=== PATIENT | male | born 1960 | race Caucasian/White ===

== ENCOUNTER 2023-03-13 14:43 | Inpatient (IN) | payer BC, MEDICARE, SELFPAY ==
[2023-03-13] VITALS (61 sets, daily range): BP systolic 123–149; BP diastolic 76–92; PULSE 81–108; RESP 3–32; TEMP 36.7–36.8; O2SAT 87–100
--- NOTE | 2023-03-13 14:45 | RT.EKG_ITS ---
APPROVED REPORT Exam: Resting ECG Reason for Exam: CP Patient Location: E HR:92 bpm ECG Measurements Heart Rate 92 AXIS [place] 150 P 76 QRSd 97 QRS -46 QT 367 T 52 QTc 455 Conclusion Sinus rhythm...normal P axis, V-rate 60- 99 LAD, consider left anterior fascicular block...axis(240,-40), S>R II III aVF sinus rhythm, left axis, normal intervals non ischemic
--- NOTE | 2023-03-13 15:00 | DI.CT_ITS ---
Exam(s) CT CHEST PE CTA EXAM: CT CHEST PE CTA CLINICAL HISTORY: lung CA, chest pain, sob, hypoxia. TECHNIQUE: Imaging Protocol: CT angiography of the chest was performed using pulmonary embolus madelyn col. Multi planar reconstructions were performed. CONTRAST MATERIAL: Intravenous: Omnipaque 350 Contrast volume: 100 cc COMPARISON: No exams were available for comparison FINDINGS: CHEST: PULMONARY ARTERIES: There are no intraluminal filling defects to suggest acute pulmonary emboli. LUNGS: There bilateral COPD/emphysematous findings throughout both lung argueta. In the right upper lobe there is an ominous appearing lobulated lung nodule measuring 3.5 x 2.2 cm wh ich is suspicious for malignancy. No other focal right lung findings and no pleural effusion.. In the opposite-left lung there is confluent posteriorly located infiltrate in the left lower lobe ex tending from the infrahilar region down to the posterior basal segment. There are multiple patent no nthrombosed pulmonary arteries within this collapsed lung. Bronchus to this level is occluded. MEDIASTINUM: There is no hilar nor mediastinal adenopathy. CARDIAC: Heart size is upper normal. There is no pericardial effusion.Caliber of the thoracic aorta is within normal limits. No dissection. There is no significant shift of the interventricular septum . PARTIALLY VISUALIZED UPPERMOST ABDOMEN: No obvious adrenal masses. Exophytic benign cyst off the lat eral cortex of the left kidney noted which measures 1.2 x 1.2 cm. This does not require further work up. OSSEOUS: No significant osseous lesions.No fractures evident.. IMPRESSION: 1. No evidence of acute pulmonary emboli. 2. 3.5 x 2.2 cm right upper lobe mass suspicious for malignancy. 3. Prominent area of left lower lobe volume loss. Also suspicious for neoplasm with nonvisualized br onchus. Comparison to prior outside studies would be helpful Discussed with ER provider. RADIATION DOSE DELIVERED: 248.5mGy.cm Total DLP DATA REPOSITORY: All CT scans at this facility are submitted to the National Radiology Data Registry (NRDR) Dose Index Registry (DIR) with the [employer] (ACR). RADIATION OPTIMIZATION: All CT scans at this facility use at least one of these dose optimization te chniques: automated exposure control; mA and/or kV adjustment per patient size (includes targeted exa ms where dose is matched to clinical indication); or iterative reconstruction.
[2023-03-13] MEDS: Normal Saline 500 ML 1000 ML IV (15:11)
--- NOTE | 2023-03-13 15:20 | ED.GENADUL_ITS ---
Discharge Plan Discharge Details Chief Complaint: RespSymp Primary Care Provider: [facility],Local ED Provider: Keanu Manzano Medical Decision Making 62-year-old male history of lung cancer currently undergoing radiation therapy, scheduled to begin chemotherapy today however patient was endorsing worsening ch est pain and shortness of breath so therapy was canceled. Noted to be hypoxic in the 60s and 70s on room air, improvement with nasal cannula and then nonrebreather. Has been having episodes of hemoptysis. Was also diagnosed with a nasal tumor. Patient noted to be tachycardic and hypoxic on arrival speaking in short sentences, tachypneic. Saturating 89 to 95% on nonrebreather feeling more comfortable with nonrebreather. Must consider PE versus pulmonary hemorrhage versus worsening tumor burden versus pleural effusion versus pneumonia low suspicion for ACS or PE. Will obtain screening labs imaging close reassessment of symptoms 16: 13 transitioned off of nonrebreather to nasal cannula now 3 L nasal cannula saturating high 90s to 100%. Leukocytosis consider reactive to cancer versus active infection. Disposition pending results of CT chest HPI General Date/Time Provider Initiated Documentation: 03/13/23 14:46 . HPI Narrative: 62-year-old male currently undergoing radiation therapy for lung cancer presents with shortness of breath chest pain and hemoptysis over the last day. Noted to be hypoxic in the field to 60 to 70% on room air with improvement after being placed on nasal cannula and nonrebreather. General Stated Complaint: RespSymp LYUBOV: 2 Review of Systems Narrative: Review of Systems Constitutional: negative Eyes: negative ENT: negative Cardiovascular: negative Respiratory: Shortness of breath Gastrointestinal: negative : negative Musculoskeletal: negative Skin: negative Neurologic: negative Psych: negative [facility] Social History Smoking risk assessment performed?: No Exam Narrative Exam Narrative: Physical Examination General: alert, awake, cooperative, moderately uncomfortable HEENT: normocephalic, atraumatic; PERRL, EOM intact, conjunctiva normal; no nasal discharge; moist mucous membranes, oral and pharyngeal mucosa normal, tolerating secretions Neck: supple, trachea midline; full ROM Chest: normal to inspection Respiratory: Tachypneic speaking in short sentences Cardiac: Tachycardia, regular rhythm, S1S2 intact, no murmurs rubs or gallops GI: abdomen soft, non-tender, non-distended; no palpable mass or hepatosplenomegaly Skin: no lesions, rashes or trauma appreciated; dry Neuro: AAOx3, normal speech, moving all extremities Psych: Appropriate mood and affect Course Vital Signs Vital signs: Vital Signs Temperature 36.8 C 03/13/23 14:48 Pulse 108 H 03/13/23 14:48 Blood Pressure 127/91 H 03/13/23 14:48 Pulse Oximetry 90 L 03/13/23 14:48 Temperature 36.8 C 03/13/23 14:48 Temperature Source Temporal Artery Scan 03/13/23 14:48 Pulse 108 H 03/13/23 14:48 Respiratory Effort Short of Breath, Labored 03/13/23 15:09 Respiratory Depth Normal 03/13/23 15:04 Blood Pressure 127/91 H 03/13/23 14:48 Blood Pressure Position Sitting 03/13/23 14:48 Pulse Oximetry 90 L 03/13/23 14:48 Oxygen Delivery Method Nasal Cannula 03/13/23 14:48 Oxygen Flow Rate 2 03/13/23 14:48
[2023-03-13 15:24] LABS: HCT 28.5 % (40.0-50.0); HGB 9.9 g/dL (13.5-17.5); MCH 30.9 pg (27.0-33.0); MCHC 34.7 % (32.0-36.0); MCV 89 fL (80-95); MPV 8.5 fL (8.0-11.0); RDW 15.4 % (11.8-14.1); RDW-SD 49.3 fL
[2023-03-13 15:27] LABS: WBC 26.49 10^3/uL (4.4-10.8)
[2023-03-13] MEDS: ACETAMINOPHEN 1,000 MG/100 ML BTL 400 MG IVPB (15:32)
[2023-03-13 15:38] LABS: PTT Activated 30.2 sec (21.5-31.9); Prothrombin Time 10.1 sec (9.3-11.0)
[2023-03-13 15:51] LABS: ALT 18 U/L (16-63); AST 19 U/L (15-37); Absolute Lymphocyte Count 0.79 10^3/uL (1.2-3.4); Absolute Neutrophil Count 24.37 10^3/uL (1.2-6.7); Albumin 2.9 g/dL (3.4-5.0); Alkaline Phosphatase 113 U/L (46-116); Anion Gap 7.3 mmol/L (3-11); BUN 7 mg/dL (7-18); Bands % 8; Bilirubin, Total 0.5 mg/dL (0.2-1.0); CO2 31.7 mmol/L (21.0-32.0); CREATININE 0.7 mg/dL (0.70-1.30); Calcium 9.7 mg/dL (8.5-10.1); Chloride 87 mmol/L (98-107); Estimated GFR 105.49 (mL/min/1.73m2); Glucose 97 mg/dL (74-106); NT-proBNP 1098 pg/mL (<300); Platelet Count 519 10^3/uL (130-400); Potassium 3.4 mmol/L (3.5-5.1); Sodium 126 mmol/L (136-145); Total Protein 7.5 g/dL (6.4-8.2); Troponin I < 50 ng/L (<or=60)
[2023-03-13 15:52] LABS: Absolute Monocyte Count 1.32 10^3/uL (0.1-0.8); Diff Comment Manual Differential; RBC Morphology Normal
[2023-03-13] MEDS: cefTRIAXone 1 GM/50 ML BAG IV (16:14)
[2023-03-13] MEDS: Normal Saline Flush 10 ML SYR IVP (16:19)
[2023-03-13] MEDS: Normal Saline - Diluent 50 ML VIAL IJ ×3 (16:34→18:16)
[2023-03-13] MEDS: Omnipaque 350 MG/ML 100 ML BTL IJ ×2 (16:34→18:12)
[2023-03-13] MEDS: AZITHROMYCIN 500 MG in Normal Saline 250 ML 250 MG IVPB (16:50)
--- NOTE | 2023-03-13 17:45 | DI.CT_ITS ---
Exam(s) CT ABDOMEN PELVIS W EXAM: CT ABDOMEN PELVIS W CLINICAL HISTORY: abdominal pain, elevated wbc. TECHNIQUE: Imaging Protocol: Axial computed tomography images with coronal and sagittal reformatted images were created and reviewed CONTRAST MATERIAL: Intravenous: Omnipaque 350 Contrast volume:69 ml Oral: no COMPARISON: CT CT CHEST PE CTA from 03/13/2023 FINDINGS: ABDOMEN: Lung Bases: Heart is enlarged. Area of consolidation at the left lung base. There are emphysematous changes. Liver: Normal density. No measurable mass. Gallbladder and biliary tract: Gallbladder not visualized. No biliary dilatation. Pancreas: Normal density, no abnormal calcifications or inflammatory process. Spleen: Normal. Kidneys: Normal size, contour and axis. No radiodense stones or obstructive uropathy. No suspicious m asses seen. Small bilateral renal cysts. Adrenal glands: No masses seen. Abdominal Aorta: Abdominal portion non-dilated. Mild atherosclerotic changes. Soft tissues: Unremarkable. PELVIS: Bladder: No gross wall thickening. No calculi.No focal mass. Bowel: Gaseous distention of both small and large large bowel. No obstruction. No bowel wall thick ening. Appendix normal. Peritoneal cavity: No ascites, collection or mesenteric inflammatory response. Bones: degenerative changes. Minimal scoliosis Reproductive organs: Prostate mildly enlarged. Lymph nodes: Unremarkable. Impression: Nonspecific gaseous distension of small and large bowel. No findings to suggest obstruction. No bow el wall thickening. RADIATION DOSE DELIVERED: 661.67mGy.cm Total DLP DATA REPOSITORY: All CT scans at this facility are submitted to the National Radiology Data Registry (NRDR) Dose Index Registry (DIR) with the [employer] (ACR). RADIATION OPTIMIZATION: All CT scans at this facility use at least one of these dose optimization te chniques: automated exposure control; mA and/or kV adjustment per patient size (includes targeted exa ms where dose is matched to clinical indication); or iterative reconstruction.
[2023-03-13 17:51] LABS: BE (Venous) 6 mmol/L (-2-3); HCO3 (Venous) 32 mmol/L (23-28); Lactate 1.3 mmol/L (0.6-1.4); O2 Sat (Venous) 56 %; TCO2 (Venous) 31 mmol/L (24-29); pCO2 (Venous) 60 mmHg (41-51); pH (Venous) 7.33 (7.31-7.41); pO2 (Venous) 35 mmHg
--- NOTE | 2023-03-13 18:39 | DI.VRAD_ITS ---
PROCEDURE INFORMATION: Exam: CT Abdomen And Pelvis With Contrast Exam date and time: 03/13/2023 6:11 PM Age: 62 years old Clinical indication: Other: Abdominal pain, elevated wbc TECHNIQUE: Imaging protocol: Computed tomography of the abdomen and pelvis with contrast. Contrast material: OMNIPAQUE 350; Contrast volume: 60 ml; Contrast route: INTRAVENOUS (IV); COMPARISON: CT CHEST PE CTA 03/13/2023 4:29 PM FINDINGS: Lungs: Stable area of dependent atelectasis and endobronchial mucous plugging noted in the left lower lobe. Liver: Normal. No mass. Gallbladder and bile ducts: Gallbladder is not visualized, presumably surgically absent. Pancreas: Normal. No ductal dilation. Spleen: Normal. No splenomegaly. Adrenal glands: Normal. No mass. Kidneys and ureters: Normal. No hydronephrosis. Stomach and bowel: Multiple small bowel loops throughout the abdomen exhibit significant gaseous retention and are top-normal in caliber. Moderate amount of gas and stool noted throughout the colon, which appears normal to small in caliber. Appendix: The appendix is visualized and appears normal. Intraperitoneal space: Unremarkable. No free air. No significant fluid collection. Vasculature: Abdominal aorta is tortuous and normal in caliber with no evidence of dissection. Mild scattered atherosclerotic calcification is noted. Lymph nodes: Unremarkable. No enlarged lymph nodes. Urinary bladder: Unremarkable as visualized. Reproductive: Unremarkable as visualized. Bones/joints: Moderate degenerative disc changes noted L4-L5 and L5-S1. There is minimal lumbar scoliosis. No vertebral body compression acute fracture. Soft tissues: Unremarkable. IMPRESSION: No acute abnormality evident in the abdomen pelvis. No abnormal mass lesion or other findings concerning malignancy. Incidental findings as noted. Dictated and Authenticated by: Jovanny Stover MD. Ordering:SALVADOR Sorto MD
[2023-03-13 18:59] LABS: Troponin I < 50 ng/L (<or=60)
--- NOTE | 2023-03-13 19:28 | HPE_ITS ---
Date of service: 03/13/23 Time of Service: 19:28 Assessment and Plan Assessment and plan (1) Acute respiratory failure with hypoxia and hypercarbia: Start date: 03/13/23 Status: Acute Assessment and plan: This is a 62-year-old gentleman who was sent over from the cancer center with hypoxemia. He does have a chronically collapsed left lung but there may be persistent infiltrate and there is some concern with his chronic leukocytosis and worsening hypoxemia that he may have worsening pneumonia and this will be hospital-acquired. He will be replaced on vancomycin, cefepime and azithromycin IV with respiratory care. Oxygen supplement as needed. Recheck VBG if patient appears to worsen. Patient is a full code at this time. (2) HCAP (healthcare-associated pneumonia): Start date: 03/13/23 Status: Acute Assessment and plan: As above, O2 supplementation and IV antibiotic initiation with follow-up imaging as indicated. Pulmonology consultation if available. 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 This needs to be reviewed with oncology and once patient is stabilized he will resume evaluation and treatment of this new problem. His previous history of throat cancer which I think is not actively being treated. Patient will have swallow evaluation with difficulty swallowing. (4) Hyponatremia: Status: Chronic Assessment and plan: This is a chronic by history and probably associated with daily alcohol use. IV normal saline. (5) Hypokalemia: Start date: 03/13/23 Status: Acute Assessment and plan: IV repletion with IV normal saline and follow-up lab in the morning. Oral supplement if needed. Check magnesium and replete if needed along with phosphorus level with patient's daily alcohol use. (6) Alcohol abuse, daily use: Status: Chronic Assessment and plan: Patient will be placed on CIWA protocol with oral or sublingual Ativan as needed. Continue electrolyte monitoring and repletion. Patient's vitamins will be continued with a history of Warnicke's encephalopathy. (7) Leukocytosis (leucocytosis): Status: Chronic Assessment and plan: Assumed to be manifestation of his pneumonia upon evaluation in the ED but this may be a chronic problem and we need comparisons to see if this is actually worse or only reactive the patient also having an elevated platelet count. (8) Wernicke encephalopathy syndrome: Status: Chronic Assessment and plan: Continue thiamine daily and encourage alcohol cessation. 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 He does have some problems swallowing after this. He recently was diagnosed with a neuroendocrine tumor of the right lung with collapsed left lung and treated for pneumonia at [facility] discharge on linezolid but upon reporting to [facility] to discuss initiation of radiation therapy of his right lung tumor he was found to be hypoxic with dyspnea and sent to the ED for evaluation. In the ED he remained hypoxic but there is mention of him having oxygen dependency when admitted to [facility]. VBG revealed hypercarbia as well. He had leukocytosis which also appears to be chronic and question of persistent pneumonia or worsening therefore was admitted for aggressive treatment of hospital-acquired pneumonia while addressing his acute respiratory failure. The patient is a very vague historian. He has lost much weight since his throat cancer and appears to be somewhat noncompliant with follow-up. In the ED he was having a course cough with some production of sputum but no fever or chills and slightly dyspneic which appears to be worsened from baseline. He was admitted for IV antibiotic therapy for his hospital- acquired pneumonia, respiratory failure and to obtain an echocardiogram with his BNP elevated on lab evaluation. He has minimal labs for comparison at this hospital. He was a DNR in the past but revoked that status and is a full code at this time. He has poor insight. Review of Systems Narrative: 13 point review of systems positive for weight loss with the patient being very thin almost cachectic which has been a problem since disorder cancer and now worsened with his recent neuroendocrine tumor diagnosis, chronic cough with mention that patient may be on oxygen chronically with his last hospitalizations history and physical though this was thought to be new onset at the cancer center. He does have chronic constipation with bloating which comes and goes and stated that he has a hole in his intestine from recent testing though this is a vague history. CT in the ED did show multiple small bowel loops having significant gaseous retention with top normal caliber with the colon being normal caliber. Otherwise review of systems unrevealing or stable. 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 (Chronic) Acute hypoxemic respiratory failure (Acute) Medical History Aspiration pneumonia Social History Smoking/Tobacco Use Status: Former Tobacco Use Smoking risk assessment performed?: Yes Meds Allergies and Home Medications Allergies Allergy/AdvReac Type Severity Reaction Status Date / Time codeine Allergy Unverified 03/13/23 21:20 varenicline [From Chantix] Allergy Unverified 03/13/23 21:19 Home Medications Medication Instructions Recorded Confirmed Type albuterol sulfate 90 mcg/actuation 90 mcg inhalation Q4H 03/13/23 03/13/23 History aerosol inhaler (Ventolin HFA) ascorbic acid (vitamin C) 500 mg 500 mg PO 1XD 03/13/23 03/13/23 History tablet aspirin 81 mg tablet,delayed 81 mg PO 1XD 03/13/23 03/13/23 History release azelastine 137 mcg (0.1 %) nasal 137 mcg intranasal 2XD 03/13/23 03/13/23 History spray aerosol baclofen 20 mg tablet 20 mg PO DAILY 03/13/23 03/13/23 History budesonide 0.5 mg/2 mL suspension 0.5 mg inhalation 2XD 03/13/23 03/13/23 History for nebulization budesonide-formoterol HFA 80 2 inh inhalation 2XD 03/13/23 03/13/23 History mcg-4.5 mcg/actuation aerosol inhaler cyanocobalamin (vitamin B-12) 1,000 mcg PO DAILY 03/13/23 03/13/23 History 1,000 mcg tablet folic acid 1 mg tablet 1 mg PO DAILY 03/13/23 03/13/23 History ipratropium 0.5 mg-albuterol 3 mg 3 ml inhalation Q4H PRN 03/13/23 03/13/23 History (2.5 mg base)/3 mL nebulization soln ipratropium bromide 42 mcg (0.06 2 spray intranasal 4XD 03/13/23 03/13/23 History %) nasal spray levothyroxine 100 mcg tablet 100 mcg PO 1XD 03/13/23 03/13/23 History lidocaine 5 % topical patch 1 patch transdermal 1XD 03/13/23 03/13/23 History (Lidoderm) Exam Narrative Exam Narrative: General: Patient appears older than stated age, cachectic, muscle wasting diffusely over his upper and lower extremities, alert and oriented x3 and in no acute distress appearing chronically ill and disheveled. HEENT: Normocephalic, coarsened gutierres hair over his head and garcia, eyes with pupils equal and reactive light symmetrically, extraocular movement tact and sclera anicteric. Oropharynx with dry mucosa and poor dentition. Neck: Supple without JVD. Back: Slightly kyphotic with decreased range of motion, no CVA tenderness. Patient has deformities of his rib cage and back with his cachexia. Lungs: Poor aeration with coarse crackles upon inspiration over the right and loose rhonchorous cough with decreased aeration of the left with no focalizing rales. Some egophony on the left. Abdomen: Scaphoid contour, soft and nontender to palpation with no palpable hepatosplenomegaly. Genitalia/rectal: Exam deferred. Extremities: Clubbing over fingernails, no cyanosis or pitting edema. Fair cap refill. Skin: Pale, warm and dry with decreased turgor. Neuro: Current nerves II through XII grossly intact, no focalizing motor deficits the patient appears generally weak. No tremor. Psych: Flattened affect with depressed mood, no abnormal thought processes. Short-term memory appears to be an deficit with patient being vague about history though I think is more of a lack of understanding than short-term memory loss. Remote memory appears intact. Results Imaging Imaging Studies: EXAM: ? CT CHEST PE CTA CLINICAL HISTORY: ? lung CA, chest pain, sob, hypoxia. ? TECHNIQUE:? Imaging Protocol: CT angiography of the chest was performed using pulmonary embolus protocol.? Multi planar reconstructions were performed. CONTRAST MATERIAL:? Intravenous: Omnipaque 350 Contrast volume: 100 cc COMPARISON:? No exams were available for comparison FINDINGS: CHEST: PULMONARY ARTERIES: There are no intraluminal filling defects to suggest acute pulmonary emboli. LUNGS: There bilateral COPD/emphysematous findings throughout both lung argueta. In the right upper lobe there is an ominous appearing lobulated lung nodule measuring 3.5 x 2.2 cm which is suspicious for malignancy.? No other focal right lung findings and no pleural effusion..? In the opposite-left lung there is confluent posteriorly located infiltrate in the left lower lobe extending from the infrahilar region down to the posterior basal segment.? There are multiple patent nonthrombosed pulmonary arteries within this collapsed lung.? Bronchus to this level is occluded. MEDIASTINUM: There is no hilar nor mediastinal adenopathy.? CARDIAC: Heart size is upper normal.? There is no pericardial effusion.Caliber of the thoracic aorta is within normal limits. No dissection.? There is no significant shift of the interventricular septum. PARTIALLY VISUALIZED UPPERMOST ABDOMEN: No obvious adrenal masses.? Exophytic benign cyst off the lateral cortex of the left kidney noted which measures 1.2 x 1.2 cm.? This does not require further workup. OSSEOUS: No significant osseous lesions.No fractures evident.. IMPRESSION: 1. No evidence of acute pulmonary emboli.? 2. 3.5 x 2.2 cm right upper lobe mass suspicious for malignancy. 3. Prominent area of left lower lobe volume loss.? Also suspicious for neoplasm with nonvisualized bronchus. Exam: CT Abdomen And Pelvis With Contrast Exam date and time: 03/13/2023 6:11 PM Age: 62 years old Clinical indication: Other: Abdominal pain, elevated wbc TECHNIQUE: Imaging protocol: Computed tomography of the abdomen and pelvis with contrast. Contrast material: OMNIPAQUE 350; Contrast volume: 60 ml; Contrast route: INTRAVENOUS (IV);? COMPARISON: CT CHEST PE CTA 03/13/2023 4:29 PM FINDINGS: Lungs: Stable area of dependent atelectasis and endobronchial mucous plugging noted in the left lower lobe. Liver: Normal. No mass. Gallbladder and bile ducts: Gallbladder is not visualized, presumably surgically absent. Pancreas: Normal. No ductal dilation. Spleen: Normal. No splenomegaly. Adrenal glands: Normal. No mass. Kidneys and ureters: Normal. No hydronephrosis. Stomach and bowel: Multiple small bowel loops throughout the abdomen exhibit significant gaseous retention and are top-normal in caliber. Moderate amount of gas and stool noted throughout the colon, which appears normal to small in caliber. Appendix: The appendix is visualized and appears normal. Intraperitoneal space: Unremarkable. No free air. No significant fluid collection. Vasculature: Abdominal aorta is tortuous and normal in caliber with no evidence of dissection. Mild scattered atherosclerotic calcification is noted. Lymph nodes: Unremarkable. No enlarged lymph nodes. Urinary bladder: Unremarkable as visualized. Reproductive: Unremarkable as visualized. Bones/joints: Moderate degenerative disc changes noted L4-L5 and L5-S1. There is minimal lumbar scoliosis. No vertebral body compression acute fracture. Soft tissues: Unremarkable. IMPRESSION: No acute abnormality evident in the abdomen pelvis.? No abnormal mass lesion or other findings concerning malignancy.? Incidental findings as noted. Labs 03/13/23 15:00 03/13/23 15:00 Labs: Laboratory Results - last 24 hr 03/13/23 03/13/23 03/13/23 08:25 15:00 15:00 WBC 26.49 H* RBC 3.20 L Hgb 9.9 L Hct 28.5 L MCV 89 MCH 30.9 MCHC 34.7 RDW 15.4 H Plt Count 519 H MPV 8.5 Immature Gran % 0.0 Neutrophils % 84.0 Band Neutrophils % 8 Lymphocytes % 3.0 Monocytes % 5.0 Eosinophils % 0.0 Basophils % 0.0 Nucleated RBC % 0.0 Absolute Neutrophils 24.37 H Absolute Lymphocytes 0.79 L Absolute Monocytes 1.32 H Absolute Eosinophils 0.00 Absolute Basophils 0.00 RBC Morphology Normal PT INR APTT VBG pH VBG pCO2 VBG pO2 VBG HCO3 VBG Total CO2 VBG O2 Saturation VBG Base Excess VBG Lactate Sodium 126 L Potassium 3.4 L Chloride 87 L Carbon Dioxide 31.7 Anion Gap 7.3 BUN 7 Creatinine 0.7 Est GFR (CKD-EPI 2020) 105.49 Glucose 97 Calcium 9.7 Total Bilirubin 0.5 AST 19 ALT 18 Alkaline Phosphatase 113 Troponin I < 50 < 50 NT-Pro-B Natriuret Pep 1098 H Total Protein 7.5 Albumin 2.9 L 06/01/23 06/01/23 06/01/23 15:00 17:40 17:40 WBC RBC Hgb Hct MCV MCH MCHC RDW Plt Count MPV Immature Gran % Neutrophils % Band Neutrophils % Lymphocytes % Monocytes % Eosinophils % Basophils % Nucleated RBC % Absolute Neutrophils Absolute Lymphocytes Absolute Monocytes Absolute Eosinophils Absolute Basophils RBC Morphology PT 10.1 INR 1.0 APTT 30.2 VBG pH 7.33 VBG pCO2 60 H VBG pO2 35 VBG HCO3 32 H VBG Total CO2 31 H VBG O2 Saturation 56 VBG Base Excess 6 H VBG Lactate 1.3 Sodium Potassium Chloride Carbon Dioxide Anion Gap BUN Creatinine Est GFR (CKD-EPI 2020) Glucose Calcium Total Bilirubin AST ALT Alkaline Phosphatase Troponin I NT-Pro-B Natriuret Pep Total Protein Albumin Last Vital Signs Temp 36.8 C 03/13/23 14:48 Pulse 108 H 03/13/23 14:48 BP 127/91 H 03/13/23 14:48 Pulse Ox 90 L 03/13/23 14:48 Time Spent Time spent with Patient: >75 minutes Time was spent: preparing to see the patient(eg.review tests), obtaining and/or reviewing separately otained hiistory, ordering medications,tests, procedures, referring, communicating with other health manager home healthcare, indepentently interpreting results and care coordination
[2023-03-13] MEDS: CEFEPIME 2 GM in Normal Saline 100 ML IVPB (19:45)
[2023-03-13] MEDS: Albuterol/Ipratropium 3 ML UPD VIAL UPD (20:20)
[2023-03-13 20:46] LABS: COVID-19 PCR Negative (Negative); Influenza A PCR Negative (Negative); Influenza B PCR Negative (Negative); RSV PCR Negative (Negative)
[2023-03-13 20:48] LABS: Source Nasopharynx
[2023-03-13] MEDS: VANCOMYCIN 1,500 MG in Normal Saline 250 ML 166.6666 MG IVPB (21:12)
--- OUTSIDE RECORDS SUMMARY | 2023-03-13 21:14 | XMS_ITS | Continuity of Care Document ---
Author Name Unknown Organization [facility] Address [address] [place] [address] Care Team Providers Care Bone Cooking Operator Name Role Phone PRAKASH ALLRED APRN Primary Care Physician Encounter LTTL_AZ FIN NBR [id number] Date(s): 01/13/23 - 01/15/23 [facility] [address] [place] [address]- Encounter Diagnosis Alcohol abuse(Discharge Diagnosis) - 01/13/23 COPD (chronic obstructive pulmonary disease)(Discharge Diagnosis) - 01/14/23 Hyponatremia(Discharge Diagnosis) - 01/13/23 Pulmonary nodule(Discharge Diagnosis) - 01/14/23 Discharge Disposition: Home or Self Care Attending Physician: Garrick Katz MD Admitting Physician: Keanu Wilson MD Allergies, Adverse Reactions, Alerts Substance Reaction Severity Status codeine Hives, itchy, SOB Mild Active morphine Unknown Mild Active varenicline confusion, disorientation Mild Ac tive Duragesic-12 Unknown Mild Active Assessment and Plan Future Appointments Functional Status 01/15/23 Living Environment Living Situation: Current Home Treatments: Oxygen therapy Home Devices/Equipment Cane Professional Skilled Services: Special Services and Community Resources: Sensory Deficits: Performed by: Meena Sanford-01/14/23 14:42:00 Living Situation: Other: rents a room in a house in [place] Current Home Treatments: Home Devices/Equipment Professional Skilled Services: Special Services and Community Resources: Sensory Deficits: Performed by: JULIETTE Meza-01/14/23 11:11:00 Living Situation: Other: rents a room in a house in [place] Current Home Treatments: Home Devices/Equipment Professional Skilled Services: Special Services and Community Resources: Sensory Deficits: Performed by: GAGE Fitzgerald/Cecelia-01/14/23 09:42:00 Living Situation: Current Home Treatments: Oxygen therapy Home Devices/Equipment Professional Skilled Services: Special Services and Community Resources: Sensory Deficits: Performed by: Chastity Andrew01/13/23 22:33:00 Lives In Multilevel home Lives With Friend Living Situation Other: rents a room in a house in [place] Current Home Treatments Oxygen therapy Home Equipment Cane Number of Stairs Inside 12 Inside Stairs Rail Rail on left going u p Number of Stairs Outside 3 Outside Stairs Rail Rail on left going u p 01/15/23 Activity Status ADL Up to chair 01/15/23 Breakfast Percent 50 01/15/23 Personal Care Provided Other: caul puller offere d to set up/ assist with AM care. pt declined stating he just took a shower not to long ago. 01/14/23 ADLs Minimal assistance 01/14/23 Patient's Responsibilities Rehab Persona l ADL Detail Areas of Responsibilities does no t drive anymore; gets meals on wheels, does not work Location Bed 2nd floor Location Main Bathroom 2nd floor Location Kitchen 1st floor Location Laundry 1st floor Prior ADL Status Assist needed Prior Mobility Status Assist needed Prior Instrumental ADL Level Assist need ed Prior Cognitive-Communication Skills Ass ist needed 01/14/23 Home Equipment Rehab Cane 01/13/23 Pressure Reducing Device for Bed Air-Flu idized Dinner Percent 30 Evening Snack Percent 50 01/13/23 Family Member Travel History No recent t ravel Recent Travel History No recent travel Other exposure to Infectious Disease Non e Medications Albuterol (Eqv-Ventolin HFA) 90 mcg/inh inhalation aerosol 2 puffs, Inhale, every 6 hr, PRN as needed for wheezing Start Date: 01/13/23 Status: Ordered aspirin 81 mg oral tablet, chewable 81 mg = 1 tab, Chewed, Daily, 0 Refill(s) Start Date: 01/13/23 Status: Ordered azelastine 137 mcg/inh (0.1%) nasal spray 2 sprays, Nasal, BID, PRN as needed for allergy symptoms, 90 mL, USE 2 SPRAY(S) IN EACH NOSTRIL TWICE DAILY, 0 Refill(s) Start Date: 01/03/23 Status: Ordered baclofen 20 mg oral tablet 20 mg = 1 tab, Oral, BID, PRN other (see comment), 30 EA, TAKE 1 TABLET BY MOUTH EVERY 12 HOURS NEEDED FOR NECK PAIN, 0 Refill(s) Start Date: 01/03/23 Status: Ordered cetirizine 10 mg oral tablet 10 mg = 1 tab, Oral, Daily, PRN as needed for allergy symptoms, 1 Unknown, 0 Refill(s) Start Date: 01/03/23 Status: Ordered folic acid 1 mg oral tablet 1 mg = 1 tab, Oral, Daily, 90 EA, TAKE 1 TABLET BY MOUTH ONCE DAILY, 0 Refill(s) Start Date: 01/03/23 Status: Ordered ipratropium-albuterol 0.5 mg-2.5 mg/3 mL inhalation solution 3 mL, NEB, every 6 hr, PRN as needed for shortness of breath or wheezing Start Date: 01/13/23 Status: Ordered levothyroxine 100 mcg (0.1 mg) oral tablet 100 mcg = 1 tab, Oral, Daily, 90 EA, TAKE 1 TABLET BY MOUTH ONCE DAILY, 0 Refill(s) Start Date: 01/03/23 Status: Ordered magnesium oxide 400 mg (241.3 mg elemental magnesium) oral tablet 400 mg = 1 tab, Oral, Daily, 90 EA, TAKE 1 TABLET BY MOUTH ONCE DAILY, 0 Refill(s) Start Date: 01/03/23 Status: Ordered MiraLax oral powder for reconstitution 17 g, Oral, Daily, # 510 g, 0 Refill(s), Pharmacy: [facility], [id number], cm, 01/13/23 15:52:00 EDT, Height/Length Dosing, 55.9, kg, 01/13/23 15:52:00 EDT, Weight Dosing Start Date: 01/15/23 Stop Date: 02/14/23 Status: Ordered montelukast 10 mg oral tablet 10 mg = 1 tab, Oral, Daily, 90 EA, TAKE 1 TABLET BY MOUTH ONCE DAILY, 0 Refill(s) Start Date: 01/03/23 Status: Ordered multivitamin adult, oral tablet 1 tab, Oral, Daily, # 30 tab, 0 Refill(s) Start Date: 01/13/23 Status: Ordered omeprazole 40 mg oral delayed release capsule 40 mg = 1 cap, Oral, Daily, 90 EA, TAKE 1 CAPSULE BY MOUTH ONCE DAILY, 0 Refill(s) Start Date: 01/03/23 Status: Ordered ondansetron 4 mg oral tablet 4 mg = 1 tab, Oral, every 8 hr, PRN nausea/vomiting, 30 EA, TAKE 1 TABLET BY MOUTH EVERY 8 HOURS ASNEEDED FOR NAUSEA AND FOR VOMITING, 0 Refill(s) Start Date: 01/03/23 Status: Ordered predniSONE 20 mg oral tablet 40 mg = 2 tab, Oral, Daily, # 10 tab, 0 Refill(s), Pharmacy: [facility], [id number], cm, 01/13/23 15:52:00 EDT, Height/Length Dosing, 55.9, kg, 01/13/23 15:52:00 EDT, Weight Dosing Start Date: 01/15/23 Stop Date: 01/20/23 Status: Ordered rOPINIRole 4 mg =, Oral, every night at bedtime, PRN other (see comment) Start Date: 01/13/23 Status: Ordered Symbicort 160 mcg-4.5 mcg/inh inhalation aerosol 2 puffs, Inhale, BID, 33 g, INHALE 2 PUFFS BY MOUTH TWICE DAILY, 0 Refill(s) Start Date: 01/03/23 Status: Ordered thiamine 100 mg oral tablet 1 Unknown, 0 Refill(s) Start Date: 01/03/23 Status: Ordered Mental Status 01/15/23 Eye Opening Response [place] Spontaneous ly Best Verbal Response [place] Oriented Best Motor Response Nery Obeys comman ds Nery Coma Score 15 Problem List Condition Confirmation Course Effective Dates Status H ealth Status Informant Acquired hypothyroidism Confirmed Active Alcohol abuse Confirmed Active Altered mental status Confirmed Active COPD (chronic obstructive pulmonary disease) Confirmed Active Lumbar degenerative disc disease Confirmed Active External ear conductive hearing loss Confirmed Active Fibromyalgia Confirmed Active GERD without esophagitis Confirmed Active Impacted cerumen Confirmed Active Otorrhea Confirmed Active Primary hypomagnesemia Confirmed Active RLS (restless legs syndrome) Confirmed Active Syncope and collapse Confirmed Active Tonsil carcinoma Confirmed Active Incontinence of urine Confirmed Active Procedures Procedure Date Related Diagnosis Body Site Status Cardiac catheterization C ompleted Cholecystectomy Completed Colonoscopy Completed Insertion of chest tube C ompleted Repair of umbilical hernia Completed Splenectomy Completed Results Laboratory List Name Date .Manual Differential (LTTL) 01/15/23 Basic Metabolic Panel (BMP) 01/15/23 CBC w/ Diff 01/15/23 Magnesium Level 01/15/23 Automated Diff 01/14/23 .Manual Differential (LTTL) 01/14/23 Basic Metabolic Panel (BMP) 01/14/23 CBC w/ Diff 01/14/23 Magnesium Level 01/14/23 Osmolality Urine 01/13/23 Sodium Level Urine 01/13/23 Blood Gas Arterial 01/13/23 Blood Gas Arterial 01/13/23 Respiratory Panel 2.1 ([employer]) 01/13/23 .Manual Differential (LTTL) 01/13/23 CBC w/ Diff 01/13/23 Comprehensive Metabolic Panel (CMP) Osmolality Serum 01/13/23 Troponin-I 01/13/23 Most recent to oldest [Reference Range]: 1 2 3 4 pCO2 Art [35.0-48.0 mmHg] 38.0 mmHg (01/13/23 4:55 PM) 57.0 mmHg *HI* (01/13/23 12:51 PM) pH Art [7.35-7.45 pH unit(s)] 7.52 pH unit(s) *HI* (01/13/23 4:55 PM) 7.42 pH unit(s) (01/13/23 12:51 PM) pO2 Art 396.0 *NA* (01/13/23 4:55 PM) 27.0 *NA* (01/13/23 12:51 PM) WBC [4.8-10.8 K/mcL] 28.2 K/mcL 1 *CRIT* (01/15/23 6:14 AM) 12.3 K/mcL *HI* (01/14/23 4:45 AM) 13.2 K/mcL *HI* (01/13/23 12:20 PM) RBC [4.20-6.10 Million/mcL] 3.50 Million/mcL *LOW* (01/15/23 6:14 AM) 3.92 Million/mcL *LOW* (01/14/23 4:45 AM) 4.14 Million/mcL *LOW* (01/13/23 12:20 PM) Segs Man 97 *NA* (01/15/23 6:14 AM) 98 *NA* (01/14/23 4:45 AM) 83 *NA* (01/13/23 12:20 PM) Lymph Man [20.5-51.1 %] 0.0 % *LOW* (01/15/23 6:14 AM) 1.0 % *LOW* (01/14/23 4:45 AM) 7.0 % *LOW* (01/13/23 12:20 PM) Neutro Auto [42.2-75.2 %] 97.7 % *HI* (01/14/23 4:45 AM) Lymph Auto [20.5-51.1 %] 0.9 % *LOW* (01/14/23 4:45 AM) Kendall Auto [1.7-9.3 %] 0.7 % *LOW* (01/14/23 4:45 AM) Basophil Auto [0.0-0.8 %] 0.2 % (01/14/23 4:45 AM) Kendall Man [1.7-9.3 %] 3.0 % (01/15/23 6:14 AM) 0.0 % *LOW* (01/14/23 4:45 AM) 7.0 % (01/13/23 12:20 PM) Eos Man [0.00-3.00 %] 0.00 % (01/15/23 6:14 AM) 0.00 % (01/14/23 4:45 AM) 2.00 % (01/13/23 12:20 PM) BUN [8-26 mg/dL] 14 mg/dL (01/15/23 6:14 AM) 11 mg/dL (01/14/23 4:45 AM) 10 mg/dL (01/13/23 12:20 PM) Glucose Level [74-106 mg/dL] 198 mg/dL *HI* (01/15/23 6:14 AM) 200 mg/dL *HI* (01/14/23 4:45 AM) 108 mg/dL *HI* (01/13/23 12:20 PM) Acanthocyte 1+ *ABN* (01/14/23 4:45 AM) Potassium Level [3.5-5.1 mmol/L] 3.7 mmol/L (01/15/23 6:14 AM) 3.4 mmol/L *LOW* (01/14/23 4:45 AM) 3.7 mmol/L (01/13/23 12:20 PM) Baso Absolute [0.0-0.2 K/mcL] 0.0 K/mcL (01/14/23 4:45 AM) MCV [80.0-94.0 fL] 92.0 fL (01/15/23 6:14 AM) 93.1 fL (01/14/23 4:45 AM) 93.5 fL (01/13/23 12:20 PM) RBC Morph [Normal] Normal (01/15/23 6:14 AM) Abnormal *ABN* (01/14/23 4:45 AM) Normal (01/13/23 12:20 PM) AST [15-41 IntlUnit/L] 19 IntlUnit/L (01/13/23 12:20 PM) ALT [17-63 IntlUnit/L] 13 IntlUnit/L *LOW* (01/13/23 12:20 PM) MCHC [32.0-36.0 g/dL] 33.9 g/dL (01/15/23 6:14 AM) 33.7 g/dL (01/14/23 4:45 AM) 34.1 g/dL (01/13/23 12:20 PM) Osmolality [275-295 mOsm/kg] 261 mOsm/kg *LOW* (01/15/23 6:14 AM) 257 mOsm/kg *LOW* (01/14/23 4:45 AM) 251 mOsm/kg *LOW* (01/13/23 12:20 PM) 269 mOsm/kg 2 *LOW* (01/13/23 12:20 PM) Troponin-I [<=0.05 ng/mL] 0.03 ng/mL (01/13/23 12:20 PM) Sodium Level [134-143 mmol/L] 127 mmol/L *LOW* (01/15/23 6:14 AM) 125 mmol/L 3 *CRIT* (01/14/23 4:45 AM) 125 mmol/L 4 *CRIT* (01/13/23 12:20 PM) Lymph Absolute [1.2-3.4 K/mcL] 0.1 K/mcL *LOW* (01/14/23 4:45 AM) Hct [42.0-52.0 %] 32.2 % *LOW* (01/15/23 6:14 AM) 36.5 % *LOW* (01/14/23 4:45 AM) 38.7 % *LOW* (01/13/23 12:20 PM) Calcium Level [8.9-10.3 mg/dL] 9.3 mg/dL (01/15/23 6:14 AM) 9.2 mg/dL (01/14/23 4:45 AM) 9.6 mg/dL (01/13/23 12:20 PM) Kendall Absolute [0.1-0.6 K/mcL] 0.1 K/mcL (01/14/23 4:45 AM) Albumin Level [3.5-5.0 g/dL] 3.4 g/dL *LOW* (01/13/23 12:20 PM) Protein Total [6.5-8.1 g/dL] 7.9 g/dL (01/13/23 12:20 PM) Poik 1+ *ABN* (01/14/23 4:45 AM) MCH [27.0-31.0 pg] 31.1 pg *HI* (01/15/23 6:14 AM) 31.4 pg *HI* (01/14/23 4:45 AM) 31.9 pg *HI* (01/13/23 12:20 PM) Magnesium Level [1.8-2.5 mg/dL] 1.6 mg/dL *LOW* (01/15/23 6:14 AM) 1.4 mg/dL *LOW* (01/14/23 4:45 AM) Neutro Absolute [1.4-6.5 K/mcL] 12.0 K/mcL *HI* (01/14/23 4:45 AM) Bilirubin Total [0.2-1.2 mg/dL] 0.6 mg/dL (01/13/23 12:20 PM) Hgb [14.0-18.0 g/dL] 10.9 g/dL *LOW* (01/15/23 6:14 AM) 12.3 g/dL *LOW* (01/14/23 4:45 AM) 13.2 g/dL *LOW* (01/13/23 12:20 PM) Alk Phos [38-130 IntlUnit/L] 101 IntlUnit/L (01/13/23 12:20 PM) MPV [7.4-10.4 fL] 9.0 fL (01/15/23 6:14 AM) 8.8 fL (01/14/23 4:45 AM) 8.9 fL (01/13/23 12:20 PM) CO2 Total Arterial [19.0-24.0 mmol/L] 32.2 mmol/L *HI* (01/13/23 4:55 PM) 38.7 mmol/L *HI* (01/13/23 12:51 PM) Band Man 0 % *NA* (01/15/23 6:14 AM) 1 % *NA* (01/14/23 4:45 AM) 0 % *NA* (01/13/23 12:20 PM) Platelets [130-400 K/mcL] 410 K/mcL *HI* (01/15/23 6:14 AM) 460 K/mcL *HI* (01/14/23 4:45 AM) 476 K/mcL *HI* (01/13/23 12:20 PM) CO2 [22-32 mmol/L] 28 mmol/L (01/15/23 6:14 AM) 28 mmol/L (01/14/23 4:45 AM) 32 mmol/L (01/13/23 12:20 PM) Eos Absolute [0.0-0.2 K/mcL] 0.0 K/mcL (01/14/23 4:45 AM) Osmolality Ur 380 *NA* (01/13/23 6:30 PM) Base Excess Arterial [-2.0-3.0 mmol/L] 7.6 mmol/L *HI* (01/13/23 4:55 PM) 10.3 mmol/L *HI* (01/13/23 12:51 PM) Chloride Level [98-111 mmol/L] 89 mmol/L *LOW* (01/15/23 6:14 AM) 90 mmol/L *LOW* (01/14/23 4:45 AM) 85 mmol/L *LOW* (01/13/23 12:20 PM) RDW-CV [11.5-14.5 %] 14.5 % (01/15/23 6:14 AM) 14.3 % (01/14/23 4:45 AM) 14.3 % (01/13/23 12:20 PM) Adenovirus RespP-BFire [Not Detected] Not Detected (01/13/23 12:30 PM) Bordetella parapertussis RespP-BFire [Not Detected] Not Detected (01/13/23 12:30 PM) Bordetella pertussis RespP-BFire [Not Detected] Not Detected (01/13/23 12:30 PM) Chlamydophila pneumoniae RespP-BFire [Not Detected] Not Detected (01/13/23 12:30 PM) Coronavirus 229E (Not COVID-19) RP-BFire [Not Detected] Not Detected (01/13/23 12:30 PM) Coronavirus HKU1 (Not COVID-19) RP-BFire [Not Detected] Not Detected (01/13/23 12:30 PM) Coronavirus NL63 (Not COVID-19) RP-BFire [Not Detected] Not Detected (01/13/23 12:30 PM) Coronavirus OC43 (Not COVID-19) RP-BFire [Not Detected] Not Detected (01/13/23 12:30 PM) Human Metapneumonovirus RespP-BFire [Not Detected] Not Detected (01/13/23 12:30 PM) Human Rhinovirus/Enterovirus RespP-BFir [Not Detected] Not Detected (01/13/23 12:30 PM) Influenza A RespP-BFire [Not Detected] Not Detected (01/13/23 12:30 PM) Influenza B RespP-BFire [Not Detected] Not Detected (01/13/23 12:30 PM) Mycomplasma pneumoniae RespP-BFire [Not Detected] Not Detected (01/13/23 12:30 PM) Parainfluenza Virus 1 RespP-BFire [Not Detected] Not Detected (01/13/23 12:30 PM) Parainfluenza Virus 2 RespP-BFire [Not Detected] Not Detected (01/13/23 12:30 PM) Parainfluenza Virus 3 RespP-BFire [Not Detected] Not Detected (01/13/23 12:30 PM) Parainfluenza Virus 4 RespP-BFire [Not Detected] Not Detected (01/13/23 12:30 PM) Respiratory Syncytial Virus RespP-BFire [Not Detected] Not Detected (01/13/23 12:30 PM) A/G Ratio 0.8 *NA* (01/13/23 12:20 PM) BUN/Creat Ratio [8.0-20.0] 24.1 *HI* (01/15/23 6:14 AM) 17.2 (01/14/23 4:45 AM) 13.5 (01/13/23 12:20 PM) Globulin 4.5 *NA* (01/13/23 12:20 PM) Hgb Art [12.6-17.4 g/dL] 11.6 g/dL *LOW* (01/13/23 4:55 PM) Imm Gran Absolute 0.06 *NA* (01/14/23 4:45 AM) Imm Gran Auto [0.0-0.5 %] 0.5 % (01/14/23 4:45 AM) Abs Baso Man [0.0-0.2 K/mcL] 0.0 K/mcL (01/15/23 6:14 AM) 0.0 K/mcL (01/14/23 4:45 AM) 0.1 K/mcL (01/13/23 12:20 PM) Abs Eos Man [0.0-0.2 K/mcL] 0.0 K/mcL (01/15/23 6:14 AM) 0.0 K/mcL (01/14/23 4:45 AM) 0.3 K/mcL *HI* (01/13/23 12:20 PM) Abs Lymph Man [1.2-3.4 K/mcL] 0.0 K/mcL *LOW* (01/15/23 6:14 AM) 0.1 K/mcL *LOW* (01/14/23 4:45 AM) 0.9 K/mcL *LOW* (01/13/23 12:20 PM) Abs Kendall Man [0.1-0.6 K/mcL] 0.8 K/mcL *HI* (01/15/23 6:14 AM) 0.0 K/mcL *LOW* (01/14/23 4:45 AM) 0.9 K/mcL *HI* (01/13/23 12:20 PM) Abs Neut Man [1.4-6.5 K/mcL] 27.4 K/mcL *HI* (01/15/23 6:14 AM) 12.2 K/mcL *HI* (01/14/23 4:45 AM) 11.0 K/mcL *HI* (01/13/23 12:20 PM) Creatinine Level [0.61-1.24 mg/dL] 0.58 mg/dL *LOW* (01/15/23 6:14 AM) 0.64 mg/dL (01/14/23 4:45 AM) 0.74 mg/dL (01/13/23 12:20 PM) HCO3 Art [21.0-28.0 mmol/L] 31.0 mmol/L *HI* (01/13/23 4:55 PM) 37.0 mmol/L *HI* (01/13/23 12:51 PM) SARS-CoV-2 (COVID-19) RP-BFire [Not Detected] Not Detected (01/13/23 12:30 PM) Plt Estimation Increased *ABN* (01/15/23 6:14 AM) Increased *ABN* (01/14/23 4:45 AM) Increased *ABN* (01/13/23 12:20 PM) U Sodium 43 mmol/L *NA* (01/13/23 6:30 PM) Employed in healthcare? No *NA* (01/13/23 12:30 PM) Symptomatic as defined by CDC? No *NA* (01/13/23 12:30 PM) Hospitalized due to COVID-19? No *NA* (01/13/23 12:30 PM) In ICU? No *NA* (01/13/23 12:30 PM) Group care resident? No *NA* (01/13/23 12:30 PM) status? Unknown *NA* (01/13/23 12:30 PM) Anion Gap [3.0-12.0] 10.0 (01/15/23 6:14 AM) 7.0 (01/14/23 4:45 AM) 8.0 (01/13/23 12:20 PM) Baso Man [0.0-0.8 %] 0.0 % (01/15/23 6:14 AM) 0.0 % (01/14/23 4:45 AM) 1.0 % *HI* (01/13/23 12:20 PM) Eos, Auto [0.00-3.00 %] 0.00 % (01/14/23 4:45 AM) eGFR CKD-EPI [>=60 mL/min/1.73 m2] 112 mL/min/1.73 m2 (01/15/23 6:14 AM) 108 mL/min/1.73 m2 (01/14/23 4:45 AM) 104 mL/min/1.73 m2 (01/13/23 12:20 PM) O2 Sat Art 99.9 *NA* (01/13/23 4:55 PM) 42.7 *NA* (01/13/23 12:51 PM) 1Result Comment: Results verified by repeat analysis. Called and read back by Aliya Chow at _01/15/2023 07:12:21 EDT/ns 2Result Comment: Measured 3Result Comment: verified by repeat analysis called to Chastity Andrew at 0524/rp 4Result Comment: Results verified by repeat analysis. Called TRACEY FORBES read back by MATTHEW at 01/13/2023 13:03:25 EDT Radiology Reports * Exam Date Time Procedure Performing Provider Status 01/14/23 7:[address] Abdomen and Pelvis w/ Contrast Gildardo Jc (Verified) Notes: (CT Abdomen and Pelvis w/ Contrast) Reason For Exam: cancer staging CT Abdomen and Pelvis w/ Contrast PROCEDURE INFORMATION: Exam: CT Abdomen And Pelvis With Contrast Exam date and time: 01/14/2023 7:41 PM Age: 62 years old Clinical indication: Hypovolemia; Hypovolemia; Hypo-osmolality and hyponatremia; Hypo-osmolality and hyponatremia; Alcohol abuse, uncomplicated; Alcohol abuse, uncomplicated; Emphysema, unspecified; Emphysema, unspecified; Hypoxemia; Hypoxemia; Tobacco use; Tobacco use; Additional info: Cancer staging TECHNIQUE: Imaging protocol: Computed tomography of the abdomen and pelvis with contrast. Radiation optimization: All CT scans at this facility use at least one of these dose optimization techniques: automated exposure control; mA and/or kV adjustment per patient size (includes targeted exams where dose is matched to clinical indication); or iterative reconstruction. Contrast material: ISOVUE 300; Contrast volume: 100 ml; Contrast route: INTRAVENOUS (IV); REPORTING DATA: Count of CT and Cardiac NM exams in prior 12 months: This patient has received 2 known CTs and 0 known cardiac nuclear medicine studies in the 12 months prior to the current study. COMPARISON: CT ABD/PELVIS W CONTRAST 07/13/2017 1:27 PM FINDINGS: Lungs: Emphysema in lung bases. Atelectasis or consolidation with mucoid material in collapse bronchi in medial left lung base Liver: Normal. No mass. Gallbladder and bile ducts: Normal. No calcified stones. No ductal dilation. Pancreas: Normal. No ductal dilation. Spleen: Normal. No splenomegaly. Adrenal glands: Normal. No mass. Kidneys and ureters: Normal. No hydronephrosis. Stomach and bowel: Copious colonic stool. Bowel gas pattern nonobstructive Appendix: No evidence of appendicitis. Intraperitoneal space: Unremarkable. No free air. No significant fluid collection. Vasculature: Unremarkable. No abdominal aortic aneurysm. Lymph nodes: Unremarkable. No enlarged lymph nodes. Urinary bladder: Unremarkable as visualized. Reproductive: Unremarkable as visualized. Bones/joints: Unremarkable. No acute fracture. Soft tissues: Unremarkable. IMPRESSION: 1. Suspected constipation 2. Consolidation or atelectasis medial left lung base. Mucoid material throughout the associated bronchi. Consider drowned lung. THIS DOCUMENT HAS BEEN ELECTRONICALLY SIGNED BY CHAVO MCKINNEY MD on 01/14/2023 08:15 PM Final Signed by: Chavo Mckinney MD Signed (Electronic Signature): 01/14/2023 8:15 pm * Exam Date Time Procedure Performing Provider Status 01/13/23 5:[address] Chest w/o Contrast Gildardo Jc (Verified) Notes: (CT Chest w/o Contrast) Reason For Exam: pneomothorax, hypoxia CT Chest w/o Contrast PROCEDURE INFORMATION: Exam: CT Chest Without Contrast; Diagnostic Exam date and time: 01/13/2023 5:14 PM Age: 62 years old Clinical indication: Other: Hypoxia; Additional info: Pneomothorax, hypoxia TECHNIQUE: Imaging protocol: Diagnostic computed tomography of the chest without contrast. Radiation optimization: All CT scans at this facility use at least one of these dose optimization techniques: automated exposure control; mA and/or kV adjustment per patient size (includes targeted exams where dose is matched to clinical indication); or iterative reconstruction. REPORTING DATA: Count of CT and Cardiac NM exams in prior 12 months: This patient has received [address] and 0 known cardiac nuclear medicine studies in the 12 months prior to the current study. COMPARISON: Prior CT chest 2 point of 10/04/2021 1:13 PM FINDINGS: Lungs: New 2.7 x 2.2 x 2.6 round mass with spiculated margins in the right lung apex, highly suspicious for malignancy. 7 x 5 mm noncalcified nodule in the right upper lobe, image 47/series 5. Dense, focal consolidation in the left lung posteriorly and medially, highly suspicious for diffuse left lower lobe collapse. There is cut off of the left lower lobe bronchus, cause not identified on this unenhanced exam.. Moderate to severe emphysema. No diffuse pulmonary nodules or masses. Pleural spaces: No pneumothorax or pleural effusions. Heart: No acute cardiac abnormality identified by CT. No significant pericardial effusion. Coronary arteries: No significant coronary artery calcification. Lymph nodes: No evidence of diffuse lymphadenopathy. Unenhanced technique somewhat limits evaluation for hilar lymphadenopathy. Vasculature: No acute abnormality, allowing for unenhanced technique. Bones/joints: Multiple chronic-appearing vertebral compression fractures, greatest at T8, where there is a 50% chronic compression fracture. No evidence of diffuse bony lesions. Soft tissues: No acute abnormality. IMPRESSION: 1. 2.7 cm mass with spiculated margins in the right lung apex, highly suspicious for malignancy. 2. Findings highly suspicious for diffuse left lower lobe collapse with cut off of the left lower lobe bronchus, cause not identified on this exam. 3. 6 mm noncalcified right lung nodule. 4. Emphysema. 5. See above for remaining chronic and/or incidental findings. THIS DOCUMENT HAS BEEN ELECTRONICALLY SIGNED BY MARCO A MICHELLE MD on 01/13/2023 05:53 PM Final Signed by: Marco A Michelle MD Signed (Electronic Signature): 01/13/2023 5:53 pm * Exam Date Time Procedure Performing Provider Status 01/13/23 12:42 PM XR Chest 1 View Td Dominguez; Isis (Verified) Notes: (XR Chest 1 View) Reason For Exam: Shortness of breath XR Chest 1 View EXAM DESCRIPTION: XR Chest 1 View 01/13/2023 INDICATION: SHORTNESS OF BREATH COMPARISON: CT angiography chest and AP chest radiograph from 05/31/2022 IMPRESSION: Lucency in the left apex with curvilinear interface suspicious for mild-moderate loculated left apical pneumothorax with underlying bullous changes. This appears new since prior study in this region. CT correlation is recommended. Nodular opacity in the right upper lung field. Pulmonary nodule was seen in this region on previous CT chest examination. Findings are suspicious for neoplastic nodule. Lungs otherwise clear with no focal consolidation or pulmonary edema with chronic appearing coarse interstitial changes bilaterally Normal cardiomediastinal contour. No significant pleural effusion. Results were telephoned to ER provider at the time of interpretation. JOB #: [id number] Final Signed by: Tim Manzanares MD Signed (Electronic Signature): 01/13/2023 2:50 pm Vital Signs Most recent to oldest [Reference Range]: 1 2 3 Temperature Oral [35.8-37.3 Deg C] 36.1 Deg C (01/14/23 4:02 PM) Temperature Temporal Artery [36-38 Deg C] 36.6 Deg C (01/15/23 7:12 AM) 36.8 Deg C (01/15/23 5:41 AM) 36.0 Deg C (01/15/23 12:14 AM) Temperature Temporal Artery (DegF) [97.3-100 Deg F] 98.24 Deg F (01/15/23 5:41 AM) 96.8 Deg F *LOW* (01/15/23 12:14 AM) 98.24 Deg F (01/14/23 8:08 PM) Peripheral Pulse Rate [60-100 bpm] 92 bpm (01/15/23 11:09 AM) 97 bpm (01/15/23 7:12 AM) 92 bpm (01/15/23 5:41 AM) Heart Rate Monitored [60-100 bpm] 88 bpm (01/14/23 5:37 PM) 88 bpm (01/14/23 2:00 PM) 89 bpm (01/14/23 1:00 PM) Respiratory Rate [12-24 br/min] 16 br/min (01/15/23 11:09 AM) 20 br/min (01/14/23 5:37 PM) 22 br/min (01/14/23 4:02 PM) Blood Pressure [90-140/60-90 mmHg] 118/70mmHg (01/15/23 11:09 AM) 128/61mmHg (01/15/23 7:12 AM) 129/79mmHg (01/15/23 5:41 AM) Mean Arterial Pressure, Cuff [65-140 mmHg] 96 mmHg (01/15/23 5:41 AM) 99 mmHg (01/15/23 12:14 AM) 95 mmHg (01/14/23 8:08 PM) Mean Arterial Pressure Cuff 93 mmHg (01/14/23 2:00 PM) 100 mmHg (01/14/23 1:00 PM) 97 mmHg (01/14/23 12:00 PM) Blood Pressure Location Right arm (01/15/23 5:41 AM) Right arm (01/15/23 12:14 AM) Left arm (01/14/23 8:08 PM) Blood Pressure Method Automatic (01/15/23 5:41 AM) Automatic (01/15/23 12:14 AM) Automatic (01/14/23 8:08 PM) Weight 57.9 kg (01/15/23 5:41 AM) 55.7 kg (01/14/23 6:29 AM) 55.900 kg (01/13/23 3:51 PM) Weight Dosing 55.900 kg (01/13/23 3:51 PM) 54.43 kg (01/13/23 12:36 PM) Weight Estimated 54.43 kg (01/13/23 12:05 PM) Height 182.880 cm (01/13/23 3:51 PM) Height/Length Dosing 182.880 cm (01/13/23 3:51 PM) 193.000 cm (01/13/23 12:36 PM) Body Mass Index 16.710 kg/m2 (01/13/23 3:51 PM) Height/Length Estimated 193.000 cm (01/13/23 12:05 PM) Social History Social History Type Response Tobacco Former tobacco user Tobacco Use:. Sex Hospital Discharge Instructions Patient Education 01/15/2023 11:16:19 Pulmonary Nodule Pulmonary Nodule A pulmonary nodule is a small, round growth of tissue in the lung. It is sometimes referred to as ashadow or a spot on the lung. Nodules can vary in size, and most measure less than ?? of an inch (10 mm). Nodules bigger than 1.2 inches (3 cm) are called lung masses. A pulmonary nodule is sometimesfound during a routine chest X-ray or while other imaging tests are done to check for other problems. Pulmonary nodules can be either noncancerous (benign) or cancerous (malignant). Most are noncancerous. Smaller nodules in people who do not smoke and who do not have any other risk factors for lung cancer are more likely to be noncancerous. Larger, irregular nodules in people who smoke or who have a strong family history of lung cancer are more likely to be cancerous. What are the causes? This condition may be caused by: ??? A bacterial, fungal, or viral infection, such as tuberculosis. The infection is usually an old and inactive one. ??? Cancerous tissue, such as lung cancer or a cancer in another part of the body that has spread to the lung. ??? A noncancerous mass of tissue. ??? Inflammation from conditions such as rheumatoid arthritis. ??? Abnormal blood vessels in the lungs. What are the signs or symptoms? Usually, there are no symptoms of this condition. If symptoms appear, they are usually related to the underlying cause. For example, if the condition is caused by an infection, you may have a cough or a fever. How is this diagnosed? This condition is usually diagnosed with an X-ray or CT scan. To help determine whether a pulmonarynodule is benign or malignant, your health care provider will: ??? Take your medical history. ??? Perform a physical exam. ??? Order tests. These may include: ??? Chest X-rays. ??? A CT scan. This test shows smaller pulmonary nodules more clearly and with more detail than an X-ray. ??? A positron emission tomography (PET) scan. This test is done to check if a nodule is cancerous.During the test, a small amount of a radioactive substance is injected into the bloodstream. Then apicture is taken. ??? Biopsy to evaluate for cancer or confirm a diagnosis. This procedure involves removing a tissuesample from the nodule by inserting a needle through the chest, placing a scope down into the lung,or doing open surgery. ??? A skin test called a tuberculin test. This test is done to check if you have been exposed to the germ that causes tuberculosis. ??? Blood tests. How is this treated? Treatment for this condition depends on whether the pulmonary nodule is malignant or benign. It also depends on your risk of getting cancer. Noncancerous nodules usually do not need to be treated, but they may need to be monitored with CT scans. If a CT scan shows that the pulmonary nodule got bigger, more tests may be done. Nodules that are found to be cancerous after a biopsy require treatment depending on the type and stage of the cancer. You will need more diagnostic tests, such as CT and PET scans, to determine the stage of the cancer. Treatments for cancer can include: ??? Surgery. ??? Radiation therapy. ??? Chemotherapy. ??? Immunotherapy. Some nodules need to be removed. If you need a nodule removed, you may have a procedure called a thoracotomy. During the procedure, your health care provider will make an incision in your chest and remove the part of the lung where the nodule is located. Follow these instructions at home: ??? Take kwil-yvg-gujgygq and prescription medicines only as told by your health care provider. ??? Do not use any products that contain nicotine or tobacco. These products include cigarettes, chewing tobacco, and vaping devices, such as e-cigarettes. If you need help quitting, ask your health care provider. ??? Keep all follow-up visits. This is important. Contact a health care provider if: ??? You have pain in your chest, back, or shoulder. ??? You are short of breath or have trouble breathing when you are active. ??? You develop a cough, or you develop hoarseness for an unexplained reason. ??? You feel sick or unusually tired. ??? You do not feel like eating or you lose weight without trying. ??? You develop chills or night sweats. ??? You need two or more pillows to sleep on at night. ??? You have any of these problems: ??? A fever and symptoms that suddenly get worse. ??? A fever or persistent symptoms for more than 2???3 days. Get help right away if: ??? You cannot catch your breath. ??? You have sudden chest pain. ??? You start making high-pitched whistling sounds when you breathe, most often when you breathe out (you wheeze). ??? You cannot stop coughing, or you cough up blood or bloody mucus from your lungs (sputum). ??? You become dizzy or feel like you may faint. These symptoms may represent a serious problem that is an emergency. Do not wait to see if the symptoms will go away. Get medical help right away. Call your local emergency services (911 in the [place] Do not drive yourself to the hospital. Summary ??? A pulmonary nodule is a small, round growth of tissue in the lung. Most pulmonary nodules are noncancerous. ??? Common causes of pulmonary nodules include infection, inflammation, and noncancerous growths. ??? This condition is usually diagnosed with an X-ray or CT scan. ??? Treatment for this condition depends on whether the pulmonary nodule is malignant or benign. Italso depends on your risk of getting cancer. ??? If a nodule is found to be cancerous, you will need specific diagnostic tests and treatment options as told by your health care provider. This information is not intended to replace advice given to you by your health care provider. Make sure you discuss any questions you have with your health care provider. Document Revised: 04/18/2021 Document Reviewed: 04/18/2021 [employer] Patient Education ?? 2021 [employer]. Follow Up Care 01/13/2023 12:05:37 With:PRAKASH ALLRED APRN Address: [address] [place] [id number]- When:1 month Comments:Appointment made with Dr. Vickers at [facility] [place]. March 17, 2023 8:30am. They also have added you to a wait list and will call you if a sooner date is available. Discharge instructions * Patricia Cortez: PERFORM Event Display: Discharge Instructions Authored Date: [id number] YANICK DOOLEY :1960 Age:62 years Sex:Male Visit Date:01/13/2023 Primary Care Physician: PRAKASH ALLRED APRN Hospital Discharge Instructions We would like to thank you for allowing us to assist you with your healthcare needs. The following includes patient education materials and information regarding your injury/illness. Your Next Steps Scheduled Future Appointments Friday 2:30 PM EDT ?? Follow Up Appointments Follow Up with??PRAKASH ALLRED APRN When:??Within 1 month Why: Appointment made with Dr. Vickers at [facility] [place]. March 17, 2023 8:30am. They also have added you to a wait list and will call you if a sooner date is available. Where: [address] [place] [address]- The Following Equipment Has Been Ordered for You Home Equipment - Cane Home Equipment, Anticipated - Other: already has home oxygen The Following Services Have Been Arranged for You Special Serv & Comm Res, Anticipated - Meal delivery/preparation The Following Treatments Have Been Arranged for You Current Home Treatments - Oxygen therapy Medications What How Much When Instructions Next Dose New polyethylene glycol 3350 (MiraLax oral powder for reconstitution) 17 Gram Oral (given by mouth) Every day Duration: 30 Days Pickup at [facility] Changed aspirin (aspirin 81 mg oral tablet, chewable) 1 tab Chewed Every day Changed azelastine nasal (azelastine 137 mcg/ inh (0.1%) nasal spray) 2 Sprays Nasal (into the nose) 2 times a day as needed for as needed for allergy symptoms 90 mL, USE 2 SPRAY(S) IN EACH NOSTRIL TWICE DAILY ?? Changed baclofen (baclofen 20 mg oral tablet) 1 tab Oral (given by mouth) 2 times a day as needed for other (see comment) 30 EA, TAKE 1 TABLET BY MOUTH EVERY 12 HOURS NEEDED FOR NECK PAIN ?? Changed cetirizine (cetirizine 10 mg oral tablet) 1 tab Oral (given by mouth) Every day as needed for as needed for allergy symptoms 1 Unknown ?? Changed predniSONE (predniSONE 20 mg oral tablet) 2 tab Oral (given by mouth) Every day Duration: 5 Days Pickup at [facility] Changed rOPINIRole 4 Milligrams Oral (given by mouth) Every night at bedtime as needed for other (see comment) Unchanged albuterol (Albuterol (Eqv-Ventolin HFA) 90 mcg/ inh inhalation aerosol) 2 Puffs Inhale (breathe in) Every 6 hours as needed for as needed for wheezing Unchanged budesonide-formoterol (Symbicort 160 mcg-4.5 mcg/ inh inhalation aerosol) 2 Puffs Inhale (breathe in) 2 times a day 33 g, INHALE 2 PUFFS BY MOUTH TWICE DAILY ?? Unchanged folic acid (folic acid 1 mg oral tablet) 1 tab Oral (given by mouth) Every day 90 EA, TAKE 1 TABLET BY MOUTH ONCE DAILY ?? Unchanged ipratropium-albuterol (ipratropium-albuterol 0.5 mg-2.5 mg/ 3 mL inhalation solution) 3 Milliliters Nebulized inhalation (inhale using nebulizer) Every 6 hours as needed for as needed for shortness of breath or wheezing Unchanged levothyroxine (levothyroxine 100 mcg (0.1 mg) oral tablet) 1 tab Oral (given by mouth) Every day 90 EA, TAKE 1 TABLET BY MOUTH ONCE DAILY ?? Unchanged magnesium oxide (magnesium oxide 400 mg (241.3 mg elemental magnesium) oral tablet) 1 tab Oral (given by mouth) Every day 90 EA, TAKE 1 TABLET BY MOUTH ONCE DAILY ?? Unchanged montelukast (montelukast 10 mg oral tablet) 1 tab Oral (given by mouth) Every day 90 EA, TAKE 1 TABLET BY MOUTH ONCE DAILY ?? Unchanged multivitamin (multivitamin adult, oral tablet) 1 tab Oral (given by mouth) Every day Unchanged omeprazole (omeprazole 40 mg oral delayed release capsule) 1 Capsules Oral (given by mouth) Every day 90 EA, TAKE 1 CAPSULE BY MOUTH ONCE DAILY ?? Unchanged ondansetron (ondansetron 4 mg oral tablet) 1 tab Oral (given by mouth) Every 8 hours as needed for nausea/vomiting 30 EA, TAKE 1 TABLET BY MOUTH EVERY 8 HOURS NEEDED FOR NAUSEA AND FOR VOMITING ?? Unchanged thiamine (thiamine 100 mg oral tablet) 1 Unknown ?? Pharmacy Information [facility]: [address], [place] [id number] [phone] ?? What When Comments Stop Taking diclofenac (diclofenac sodium 75 mg oral delayed release tablet) 2 times a day 1 Unknown ?? Your Summary Your Care Team Admitting Physician - Keanu Wilson MD Attending Physician - Garrick Katz MD Primary Care Physician - PRAKASH ALLRED APRN Your Diagnosis COPD (chronic obstructive pulmonary disease) Hyponatremia Alcohol abuse Pulmonary nodule Problems Ongoing - Any problem that you are currently receiving treatment for. Acquired hypothyroidism Alcohol abuse Altered mental status COPD (chronic obstructive pulmonary disease) External ear conductive hearing loss Fibromyalgia GERD without esophagitis Impacted cerumen Incontinence of urine Lumbar degenerative disc disease Otorrhea Primary hypomagnesemia RLS (restless legs syndrome) Syncope and collapse Tonsil carcinoma Tests Performed/Pending .Manual Differential (LTTL) Automated Diff Blood Gas Arterial BMP CBC w/ Diff CMP Magnesium Level Osmolality Serum Osmolality Urine Respiratory Panel 2.1 ([employer]) Sodium Level Urine Troponin-I CT Abdomen and Pelvis w/ Contrast CT Chest w/o Contrast XR Chest 1 View Discharge Vitals Temperature??(Temporal Artery) 97.9 ??F (36.6 ??C) Heart Rate??(Peripheral) 92 Respiratory Rate?? 16 Blood Pressure?? 118/70?? Weight?? 127.67 lb (57.9 kg) Allergies Duragesic-12??(Unknown) codeine??(Hives, itchy, SOB) morphine??(Unknown) varenicline??(confusion, disorientation) Education Materials Pulmonary Nodule A pulmonary nodule is a small, round growth of tissue in the lung. It is sometimes referred to as ashadow or a spot on the lung. Nodules can vary in size, and most measure less than ?? of an inch (10 mm). Nodules bigger than 1.2 inches (3 cm) are called lung masses. A pulmonary nodule is sometimesfound during a routine chest X-ray or while other imaging tests are done to check for other problems. Pulmonary nodules can be either noncancerous (benign) or cancerous (malignant). Most are noncancerous. Smaller nodules in people who do not smoke and who do not have any other risk factors for lung cancer are more likely to be noncancerous. Larger, irregular nodules in people who smoke or who have a strong family history of lung cancer are more likely to be cancerous. What are the causes? This condition may be caused by: ? A bacterial, fungal, or viral infection, such as tuberculosis. The infection is usually an old and inactive one. ? Cancerous tissue, such as lung cancer or a cancer in another part of the body that has spread to the lung. ? A noncancerous mass of tissue. ? Inflammation from conditions such as rheumatoid arthritis. ? Abnormal blood vessels in the lungs. What are the signs or symptoms? Usually, there are no symptoms of this condition. If symptoms appear, they are usually related to the underlying cause. For example, if the condition is caused by an infection, you may have a cough or a fever. How is this diagnosed? This condition is usually diagnosed with an X-ray or CT scan. To help determine whether a pulmonarynodule is benign or malignant, your health care provider will: ? Take your medical history. ? Perform a physical exam. ? Order tests. These may include: ? Chest X-rays. ? A CT scan. This test shows smaller pulmonary nodules more clearly and with more detail than an X-ray. ? A positron emission tomography (PET) scan. This test is done to check if a nodule is cancerous. During the test, a small amount of a radioactive substance is injected into the bloodstream. Then a picture is taken. ? Biopsy to evaluate for cancer or confirm a diagnosis. This procedure involves removing a tissue sample from the nodule by inserting a needle through the chest, placing a scope down into the lung, or doing open surgery. ? A skin test called a tuberculin test. This test is done to check if you have been exposed to the germ that causes tuberculosis. ? Blood tests. How is this treated? Treatment for this condition depends on whether the pulmonary nodule is malignant or benign. It also depends on your risk of getting cancer. Noncancerous nodules usually do not need to be treated, but they may need to be monitored with CT scans. If a CT scan shows that the pulmonary nodule got bigger, more tests may be done. Nodules that are found to be cancerous after a biopsy require treatment depending on the type and stage of the cancer. You will need more diagnostic tests, such as CT and PET scans, to determine the stage of the cancer. Treatments for cancer can include: ? Surgery. ? Radiation therapy. ? Chemotherapy. ? Immunotherapy. Some nodules need to be removed. If you need a nodule removed, you may have a procedure called a thoracotomy. During the procedure, your health care provider will make an incision in your chest and remove the part of the lung where the nodule is located. Follow these instructions at home: ? Take jufn-xdl-yloxtfn and prescription medicines only as told by your health care provider. ? Do not use any products that contain nicotine or tobacco. These products include cigarettes, chewing tobacco, and vaping devices, such as e-cigarettes. If you need help quitting, ask your health careprovider. ? Keep all follow-up visits. This is important. Contact a health care provider if: ? You have pain in your chest, back, or shoulder. ? You are short of breath or have trouble breathing when you are active. ? You develop a cough, or you develop hoarseness for an unexplained reason. ? You feel sick or unusually tired. ? You do not feel like eating or you lose weight without trying. ? You develop chills or night sweats. ? You need two or more pillows to sleep on at night. ? You have any of these problems: ? A fever and symptoms that suddenly get worse. ? A fever or persistent symptoms for more than 2???3 days. Get help right away if: ? You cannot catch your breath. ? You have sudden chest pain. ? You start making high-pitched whistling sounds when you breathe, most often when you breathe out (you wheeze). ? You cannot stop coughing, or you cough up blood or bloody mucus from your lungs (sputum). ? You become dizzy or feel like you may faint. These symptoms may represent a serious problem that is an emergency. Do not wait to see if the symptoms will go away. Get medical help right away. Call your local emergency services (911 in the [place] Do not drive yourself to the hospital. Summary ? A pulmonary nodule is a small, round growth of tissue in the lung. Most pulmonary nodules are noncancerous. ? Common causes of pulmonary nodules include infection, inflammation, and noncancerous growths. ? This condition is usually diagnosed with an X-ray or CT scan. ? Treatment for this condition depends on whether the pulmonary nodule is malignant or benign. It also depends on your risk of getting cancer. ? If a nodule is found to be cancerous, you will need specific diagnostic tests and treatment optionsas told by your health care provider. This information is not intended to replace advice given to you by your health care provider. Make sure you discuss any questions you have with your health care provider. Document Revised: 04/18/2021 Document Reviewed: 04/18/2021 Elsevier Patient Education ?? 2021 [employer] Patient Name:YANICK DOOLEY I have received this information and my questions have been answered. Patient/Health Education Specialist Name: Patient/Health Education Specialist Signature: Relationship to Patient: Witness Name/Signature: Date: Electronically Signed on: 01/15/2023 12:39 EDTSigned by:CC * Event Display: Discharge Instructions EKG study * Event Display: Telemetry Strips Physician Emergency department Note * ED Givens: PERFORM Event Display: ED Note Physician Authored Date: [id number] DOOLEYYANICK Daria :1960 Age:62 years Sex:Male Visit Date:01/13/2023 Primary Care Physician: PRAKASH ALLRED APRN Basic Information Time Seen: ED Givens / 01/13/2023 12:06 Chief Complaint Pt called EMS C/O sinus infection symptoms and difficulty breathing. History Of Present Illness: Patient 62-year-old male presents the emergency department via EMS having had 1 week of viral-like symptoms??where he states that he has had sinus congestion, worsening??breathing issues??and today it culminated with a??oxygenation??which was significantly low.?? He has been having issues with his concentrator and feels that this may be playing a role as well.?? EMS was contacted today found him to have a severely low oxygen had him on 6 L nasal cannula correcting to??88. Patient has no fevers at home no nausea or vomiting but does experience anorexia and increased shortness of breath.?? Patient is significantly cachectic has been dealing with COPD for some time??and is here for evaluation. Review of Systems: See HPI Physical Exam Vitals & Measurements T:??36.7?C ??(Temporal Artery)?? HR:??61??(Peripheral)?? HR:??89??(Monitored)?? RR:??11?? BP:??130/96?? SpO2:??91%?? HT:??193.000??cm?? WT:??54.43??kg??(Estimated)?? O2 Flow Rate:??4?? O2 Therapy:??High-Flow nasal cannula?? Patient is alert and oriented, moderately ill-appearing Neck is thin in appearance, no significant lymphadenopathy, cervical spine??is palpable??and there is no tenderness or??offset/crepitus Head is normocephalic atraumatic Coarse breath sounds throughout with decreased??breath sounds Regular rate and rhythm Abdomen is thin, nontender Skin is otherwise warm and dry with some systemic hypoxic??concerns??with nailbeds??having??decreased capillary refill bluish hue to the digits and hand Medical Decision Making: While in the emergency department patient was initially evaluated and found to be hypoxic on nasal cannula. ??He is placed on nonrebreather??and then transitioned with respiratory therapy's assistance to??high flow nasal cannula.?? There was difficulty getting appropriate??peripheral oxygenation one[place] dings??however??at multiple points patient was seen to have a good pleth with??oxygenation in the low 90s.?? Patient feels significantly better??with oxygenation in place X-ray as read by me does not show any acute consolidations consistent with pneumonia but does have some hyper inflation consistent with COPD. Patient has coarse breath sounds and??has a viral syndrome history. ??Evaluate??respiratory panel??to determine whether this is a viral or COPD exacerbation I did not start the patient on steroids??pending this evaluation. I did discuss with the hospitalist that he has a new increase in his oxygen demand with a history of COPD??and a sodium of 125. ??He is started on??IV fluids here in the emergency department will be admitted??for further observation. See hospitalist dictation for further details Procedure No Qualifying Data Assessment/Plan Ordered: Sodium Chloride 0.9% 1,000 mL, Total Volume (mL): 1,000, 1,000 mL, Soln-IV, IV Bolus, 999 mL/hr, Order Duration: 1 times, Start Date: 01/13/23 13:05:00 EDT, Stop Date: 01/13/23 14:04:00 EDT, 54.43 kg, Populate Charting Weight From Order, 1.71, m2 Respiratory Panel 2.1 ([employer]), Nasopharyngeal Swab, Stat Collect, 01/13/23 12:29:00 EDT, Once, Nurse collect, Print Label, No, No, No, No, No, Unknown XR Chest 1 View, 01/13/23 12:17:00 EDT, Stat, Reason: Shortness of breath, Transport Mode: Portable Patient will be admitted to the medical floor for further evaluation. Medication Reconciliation Unchanged albuterol (Albuterol (Eqv-Ventolin HFA) 90 mcg/inh inhalation aerosol)2 Puffs Inhale (breathe in) every 6 hours as needed as needed for wheezing. ?? aspirin (aspirin 81 mg oral capsule)1 Capsules Oral (given by mouth) every day. ?? azelastine nasal (azelastine 137 mcg/inh (0.1%) nasal spray)2 Sprays Nasal (into the nose) 2 times a day. 90 mL, USE 2 SPRAY(S) IN EACH NOSTRIL TWICE DAILY. ?? baclofen (baclofen 20 mg oral tablet)1 tab Oral (given by mouth) 2 times a day. 30 EA, TAKE 1 TABLET BY MOUTH EVERY 12 HOURS NEEDED FOR NECK PAIN. ?? budesonide-formoterol (Symbicort 160 mcg-4.5 mcg/inh inhalation aerosol)2 Puffs Inhale (breathe in)2 times a day. 33 g, INHALE 2 PUFFS BY MOUTH TWICE DAILY. ?? cetirizine (cetirizine 10 mg oral tablet)1 Unknown. ?? diclofenac (diclofenac sodium 75 mg oral delayed release tablet)2 times a day. 1 Unknown. ?? folic acid (folic acid 1 mg oral tablet)1 tab Oral (given by mouth) every day. 90 EA, TAKE 1 TABLETBY MOUTH ONCE DAILY. ?? ipratropium-albuterol (ipratropium-albuterol 0.5 mg-2.5 mg/3 mL inhalation solution)3 Milliliters Nebulized inhalation (inhale using nebulizer) every 6 hours as needed as needed for shortness of breath or wheezing. ?? levothyroxine (levothyroxine 100 mcg (0.1 mg) oral tablet)1 tab Oral (given by mouth) every day. 90EA, TAKE 1 TABLET BY MOUTH ONCE DAILY. ?? magnesium oxide (magnesium oxide 400 mg (241.3 mg elemental magnesium) oral tablet)1 tab Oral (given by mouth) every day. 90 EA, TAKE 1 TABLET BY MOUTH ONCE DAILY. ?? montelukast (montelukast 10 mg oral tablet)1 tab Oral (given by mouth) every day. 90 EA, TAKE 1 TABLET BY MOUTH ONCE DAILY. ?? omeprazole (omeprazole 40 mg oral delayed release capsule)1 Capsules Oral (given by mouth) every day. 90 EA, TAKE 1 CAPSULE BY MOUTH ONCE DAILY. ?? ondansetron (ondansetron 4 mg oral tablet)1 tab Oral (given by mouth) every 8 hours as needed nausea/vomiting. 30 EA, TAKE 1 TABLET BY MOUTH EVERY 8 HOURS NEEDED FOR NAUSEA AND FOR VOMITING. ?? predniSONE (predniSONE 10 mg oral tablet)30 EA, TAKE 4 TABLETS BY MOUTH ONCE DAILY FOR 3 DAYS THEN 3 ONCE DAILY FOR 3 DAYS THEN 2 ONCE DAILY FOR 3 DAYS 1 ONCE DAILY FOR 3 DAYS. ?? rOPINIRole4 Milligrams Oral (given by mouth) every day. ?? thiamine (thiamine 100 mg oral tablet)1 Unknown. Problem List/Past Medical History Ongoing Acquired hypothyroidism Alcohol abuse Altered mental status COPD (chronic obstructive pulmonary disease) External ear conductive hearing loss Fibromyalgia GERD without esophagitis Impacted cerumen Incontinence of urine Lumbar degenerative disc disease Otorrhea Primary hypomagnesemia RLS (restless legs syndrome) Syncope and collapse Tonsil carcinoma Historical No qualifying data Procedure/Surgical History ???Cardiac catheterization???Cholecystectomy???Colonoscopy???Insertion of chest tube???Repair of umbilical hernia???Splenectomy Medication Administration Given Sodium Chloride 0.9%, 1000 mL, IV Bolus Allergies Duragesic-12??(Unknown) codeine??(Hives, itchy, SOB) morphine??(Unknown) varenicline??(confusion, disorientation) Social History Alcohol Current, Several times per day Electronic Cigarette/Vaping Electronic Cigarette Use: Never. Tobacco Former tobacco user Tobacco Use:. Family History Breast cancer: Mother. Family Member(s): ?? MOTHER, at age: Unknown. Cause of : Family Member(s): ?? FATHER, at age: Unknown. Cause of : Lab Results Blood Gases?? LATEST RESULTS?? pH Art?? 01/13/23 12:51?? 7.42?? pCO2 Art?? 01/13/23 12:51?? 57.0 ??High?? pO2 Art?? 01/13/23 12:51?? 27.0?? HCO3 Art?? 01/13/23 12:51?? 37.0 ??High?? O2 Sat Art?? 01/13/23 12:51?? 42.7?? CO2 Total Arterial?? 01/13/23 12:51?? 38.7 ??High?? Base Excess Arterial?? 01/13/23 12:51?? 10.3 ??High? CBC and Differential?? LATEST RESULTS?? WBC?? 01/13/23 12:20?? 13.2 ??High?? RBC?? 01/13/23 12:20?? 4.14 ??Low?? Hgb?? 01/13/23 12:20?? 13.2 ??Low?? Hct?? 01/13/23 12:20?? 38.7 ??Low?? MCV?? 01/13/23 12:20?? 93.5?? MCH?? 01/13/23 12:20?? 31.9 ??High?? MCHC?? 01/13/23 12:20?? 34.1?? RDW-CV?? 01/13/23 12:20?? 14.3?? Platelets?? 01/13/23 12:20?? 476 ??High?? MPV?? 01/13/23 12:20?? 8.9?? Segs Man?? 01/13/23 12:20?? 83?? Lymph Man?? 01/13/23 12:20?? 7.0 ??Low?? Kendall Man?? 01/13/23 12:20?? 7.0?? Eos Man?? 01/13/23 12:20?? 2.00?? Baso Man?? 01/13/23 12:20?? 1.0 ??High?? Band Man?? 01/13/23 12:20?? 0?? Abs Neut Man?? 01/13/23 12:20?? 11.0 ??High?? Abs Lymph Man?? 01/13/23 12:20?? 0.9 ??Low?? Abs Kendall Man?? 01/13/23 12:20?? 0.9 ??High?? Abs Eos Man?? 01/13/23 12:20?? 0.3 ??High?? Abs Baso Man?? 01/13/23 12:20?? 0.1?? RBC Morph?? 01/13/23 12:20?? Normal?? Plt Estimation?? 01/13/23 12:20?? Increased Abnormal? Routine Chemistry?? LATEST RESULTS?? Sodium Level?? 01/13/23 12:20?? 125 ??Critical?? Potassium Level?? 01/13/23 12:20?? 3.7?? Chloride Level?? 01/13/23 12:20?? 85 ??Low?? CO2?? 01/13/23 12:20?? 32?? Alk Phos?? 01/13/23 12:20?? 101?? AST?? 01/13/23 12:20?? 19?? ALT?? 01/13/23 12:20?? 13 ??Low?? BUN?? 01/13/23 12:20?? 10?? Glucose Level?? 01/13/23 12:20?? 108 ??High?? Creatinine Level?? 01/13/23 12:20?? 0.74?? BUN/Creat Ratio?? 01/13/23 12:20?? 13.5?? Calcium Level?? 01/13/23 12:20?? 9.6?? Protein Total?? 01/13/23 12:20?? 7.9?? Albumin Level?? 01/13/23 12:20?? 3.4 ??Low?? Globulin?? 01/13/23 12:20?? 4.5?? A/G Ratio?? 01/13/23 12:20?? 0.8?? Bilirubin Total?? 01/13/23 12:20?? 0.6?? Anion Gap?? 01/13/23 12:20?? 8.0?? Osmolality?? 01/13/23 12:20?? 251 ??Low?? eGFR CKD-EPI?? 01/13/23 12:20?? 104? Cardiac Isoenzymes?? LATEST RESULTS?? Troponin-I?? 01/13/23 12:20?? 0.03? Electronically Signed on 01/13/23 01:58 PM ED [facility] Progress note * Letha uGerra: PERFORM Event Display: Nutrition Note Authored Date: [id number] Assessment and Monitoring Initial Nutrition Assessment Reason for Referral:??Education ?? Usual Body Weight: ~135-145 per patient. unclear timeline Weight Change: -?-# Skin:Intact Edema: n/a Chewing/Swallowing: doesn't have teeth, needs softer foods GI: Eating Habits at Home: gets meals on wheels. says he does some cooking like spaghetti-os and thingslike that ? Nutrition Assessment: 62 yo M admit??yesterday??with COPD exacerbation.??PMH significant for alcohol abuse,??GERD, fibromyalgia, COPD. Reports weight loss and decreased appetite. Though, he is eating well here so far. Says he??hasn't been eating well for past??couple weeks, though I wonder if it's been longer. Patient quite thin, BMI underweight at 16.7kg/m2. Reports weight loss,??between??12-22#, unclear exact timeline. Cheeks do look sullen- though does not have teeth so may??play a part??in that as well. ??He doesn't have??teeth, which??limits foods??he can eat. Offered??a??mechanical soft diet but says okay with regular. Went over soft options as well of that menu, can??have baked fish without breadcrumbs, egg salad/tuna- put extra sauce/gravies,??condiments as well. Can grind up/cut up foods prn.??Ordering protein shakes as well at meals. Low Na- monitoring. No current skin issues- at risk for breakdown given weight loss and BMI 16.7. Monitoring. ? Monitor/Evaluation:?? Nutrition Diagnosis Unintended weight loss r/t decreased appetite as evidenced by patients reports ~12-22# weight loss and poor appetite at home. Nutrition Goals No s/sx aspiration POs >75% of meals and supplements Skin w/o open areas Labs (Na) WNL Nutrition Interventions Regular diet (cut up foods./ alter as needed for ease of chewing) Protein shakes ~3x.day Enc protein each meals/snacks Anthropometrics/Estimated Needs Xdoueh99.7 kg(Recorded: 01/14/2023 06:29 EDT) Zghbdy157.880 cm(Recorded: 01/13/2023 15:51 EDT) Body Mass Index16.710 kg/m2(Recorded: 01/13/2023 15:51 EDT) Estimated Energy Needs: 1680-1960kcal (30-35kcal/kg actual BW) Estimated Fluid Needs: 1680-1960ml (1ml/kcal) Estimated Protein Needs: 56-67g (1.0-1.2g/kg actual BW Reason for Visit COPD exacerbation Problem List/Past Medical History Ongoing Acquired hypothyroidism Alcohol abuse Altered mental status COPD (chronic obstructive pulmonary disease) External ear conductive hearing loss Fibromyalgia GERD without esophagitis Impacted cerumen Incontinence of urine Lumbar degenerative disc disease Otorrhea Primary hypomagnesemia RLS (restless legs syndrome) Syncope and collapse Tonsil carcinoma Historical No qualifying data Procedure/Surgical History ???Cardiac catheterization???Cholecystectomy???Colonoscopy???Insertion of chest tube???Repair of umbilical hernia???Splenectomy Social History Alcohol Current, Several times per day Electronic Cigarette/Vaping Electronic Cigarette Use: Never. Tobacco Former tobacco user Tobacco Use:. Family History Breast cancer: Mother. Family Member(s): ?? MOTHER, at age: Unknown. Cause of : Family Member(s): ?? FATHER, at age: Unknown. Cause of : Diet Orders Diet Order, 01/13/23 13:39:00 EDT, Regular Allergies Duragesic-12??(Unknown) codeine??(Hives, itchy, SOB) morphine??(Unknown) varenicline??(confusion, disorientation) Nutrition Lab Results Test Name Test Result Date/Time WBC 12.3 K/mcL 01/14/2023 04:45 EDT Hgb 12.3 g/dL 01/14/2023 04:45 EDT Hct 36.5 % 01/14/2023 04:45 EDT MCV 93.1 fL 01/14/2023 04:45 EDT Platelets 460 K/mcL 01/14/2023 04:45 EDT Sodium Level 125 mmol/L 01/14/2023 04:45 EDT Potassium Level 3.4 mmol/L 01/14/2023 04:45 EDT Chloride Level 90 mmol/L 01/14/2023 04:45 EDT CO2 28 mmol/L 01/14/2023 04:45 EDT Alk Phos 101 IntlUnit/L 01/13/2023 12:20 EDT ALT 13 IntlUnit/L 01/13/2023 12:20 EDT BUN 11 mg/dL 01/14/2023 04:45 EDT Glucose Level 200 mg/dL 01/14/2023 04:45 EDT Creatinine Level 0.64 mg/dL 01/14/2023 04:45 EDT Albumin Level 3.4 g/dL 01/13/2023 12:20 EDT Bilirubin Total 0.6 mg/dL 01/13/2023 12:20 EDT Magnesium Level 1.4 mg/dL 01/14/2023 04:45 EDT Medications Inpatient aspirin, 81 mg= 1 tab, Oral, Daily baclofen, 20 mg= 2 tab, Oral, BID, PRN folic acid, 1 mg= 1 tab, Oral, Daily ipratropium-albuterol 0.5 mg-2.5 mg/3 mL inhalation solution, 3 mL, NEB, every 3 hr, PRN ipratropium-albuterol 0.5 mg-2.5 mg/3 mL inhalation solution, 3 mL, NEB, every 6 hr RT Lactated Ringers Injection 1,000 mL, 1000 mL, IV levothyroxine, 100 mcg= 1 tab, Oral, Daily LORazepam, 1 mg= 0.5 mL, IV Push, every 1 hr, PRN magnesium oxide, 400 mg= 1 tab, Oral, Daily methylPREDNISolone, 60 mg= 1.5 mL, IV, every 6 hr (yun) montelukast, 10 mg= 1 tab, Oral, Daily Mucinex, 1200 mg= 2 tab, Oral, BID ondansetron, 4 mg= 1 tab, Oral, every 8 hr, PRN Protonix, 40 mg= 1 tab, Oral, Daily rOPINIRole, 4 mg= 4 tab, Oral, every evening, PRN Symbicort 160 mcg-4.5 mcg/inh inhalation aerosol, 320 mcg= 2 inh, Inhale, BID thiamine, 100 mg= 1 tab, Oral, Daily Home Albuterol (Eqv-Ventolin HFA) 90 mcg/inh inhalation aerosol, 2 puffs, Inhale, every 6 hr, PRN aspirin 81 mg oral tablet, chewable, 81 mg= 1 tab, Chewed, Daily azelastine 137 mcg/inh (0.1%) nasal spray, 2 sprays, Nasal, BID, PRN baclofen 20 mg oral tablet, 20 mg= 1 tab, Oral, BID, PRN cetirizine 10 mg oral tablet, 10 mg= 1 tab, Oral, Daily, PRN folic acid 1 mg oral tablet, 1 mg= 1 tab, Oral, Daily ipratropium-albuterol 0.5 mg-2.5 mg/3 mL inhalation solution, 3 mL, NEB, every 6 hr, PRN levothyroxine 100 mcg (0.1 mg) oral tablet, 100 mcg= 1 tab, Oral, Daily magnesium oxide 400 mg (241.3 mg elemental magnesium) oral tablet, 400 mg= 1 tab, Oral, Daily montelukast 10 mg oral tablet, 10 mg= 1 tab, Oral, Daily multivitamin adult, oral tablet, 1 tab, Oral, Daily omeprazole 40 mg oral delayed release capsule, 40 mg= 1 cap, Oral, Daily ondansetron 4 mg oral tablet, 4 mg= 1 tab, Oral, every 8 hr, PRN rOPINIRole, 4 mg, Oral, every night at bedtime, PRN Symbicort 160 mcg-4.5 mcg/inh inhalation aerosol, 2 puffs, Inhale, BID thiamine 100 mg oral tablet Electronically Signed on 01/14/23 12:14 PM Letha Guerra Progress note * Event Display: Progress Note - Physician Authored Date: [id number] Attending Physician - Brief Progress Note PERMANENT 01/14/2023 13:59 [facility] - ICU YANICK DOOLEY Date of Service 01/14/2023 13:59 HPI/Events of Note TeleICU Physician Note I established audio/visual connection with the patient's room and reviewed the EMR. Hx: 62-year-old male with past medical history of alcohol use disorder with Wernicke's, hypothyroidism, COPD, fibromyalgia, GERD who presented on January 13 with 1 week history of viral-like syndrome associated with myalgias, dry cough. His baseline oxygen requirement of 2 L was increased to 6 L per EMS to get a saturation of 88. Patient was admitted to intensive care unit for hypoxic respiratory failure. Over the past 24 hours, he has weaned back down to 2L NC. A chest CT identified a suspicious spiculated mass in the RUL as well as LLL atelectasis. He is net positive 240 cc yesterday. Vitals: afebrile 141/86 89 93% on 2L On camera assessment: sitting upright in bed, comfortable appearing, mildly cachectic, no distress Labs: WBC 12.3 hg 12.3 Na stable at 125 K 3.4 Cl 90 HCO3 28 BUN 11 creat 0.64 gluc 200 Impression: 62 y/o man with a history of COPD, PTX 2 years ago requing VATS pleurodesis, and alcohol use disorder complicated by Wernicke's encephalopathy now admitted with acute hypoxia likely secondary to AECOPD and LLL atelectasis. Workup has identified a concerning R apical mass suspicious for lung cancer. I am unable to review the images myself, so it isn' clear whether this is in the same location as a small nodule that had been previously seen (and was previously stable) or a new lesion.It is also unclear whether there is a related process causing LLL collapse. With his reported weighloss and these findings, it will be important for him to have a diagnostic (and potentially staging) workup done as soon as feasible. This also raises concern that his hyponatremia may be due to SIADH. He has only had a modest fluid challenge to date, so it may still yet respond to volume expansion. If not, it would be worth checking urine electrolytes and a urine osm. Agree with continued treatment for AECOPD with steroids and bronchodilators. It is reasonable to hold antibiotics now and follow clinically. If he worsens or develops producitve cough, would reconsider. TeleICU will continue to monitor this patient and be available as needed for ongoing consultation. Thank you for allowing us to participate in the care of this patient. Interventions Major-Hypoxemia - evaluation and management * Garrick Katz MD: PERFORM Event Display: Progress Note - Physician Authored Date: [id number] YANICK DOOLEY :1960 Age:62 years Sex:Male Visit Date:01/13/2023 Primary Care Physician: PRAKASH ALLRED APRN Subjective Patient states he feels better than yesterday Review of Systems Notes 20 pound weight loss in the past couple months,??some early satiety,??mild???abdominal pain??along with cough??and improving shortness of breath Objective Vitals & Measurements T:??35.6?C ??(Temporal Artery)?? TMIN:??35.6?C ??(Temporal Artery)?? TMAX:??37?C ??(Temporal Artery)?? HR:??89??(Peripheral)?? HR:??89??(Monitored)?? RR:??20?? BP:??141/86?? SpO2:??93%?? HT:??182.880??cm?? WT:??55.7??kg?? BMI:??16.710?? Pain Score:??7?? O2 Flow Rate:??2?? O2 Therapy:??Nasal cannula?? Physical Exam General:??No apparent distress, severely cachectic appearing Eye:??PERRL, EOMI, normal conjunctiva Lungs:??Clear to auscultation??though diminished breath sounds and percussion, Non-labored respiration Heart:??Normal rate, Normal rhythm, No murmur, No gallop Abdomen:??Soft, non-tender, non-distended, normal bowel sounds, no masses Assessment/Plan 1.??COPD (chronic obstructive pulmonary disease)??J44.9 COPD with exacerbation being treated with steroids we will switch to IV methylprednisone once dailynow. ?? 2.??Hyponatremia??E87.[address] on a bit of a fluid restriction??currently fairly stable mild Ordered: magnesium sulfate, 2 g = 50 mL, IV Piggyback, Injection, Once, Administer over: 2 hr, First Dose: 01/14/23 13:00:00 EDT, Stop Date: 01/14/23 13:00:00 EDT, Physician Stop, Routine, 25 mL/hr potassium chloride, 40 mEq = 2 tab, Oral, Tab-ER, BID w/Meals for 30 days, First Dose: 01/14/23 13:00:00 EDT, Stop Date: 02/13/23 7:59:00 EDT, Physician Stop, Routine Change Accommodation, MedSurg, 01/14/23 13:17:00 EDT, Garrick Katz MD CT Abdomen and Pelvis w/ Contrast, 01/14/23 13:16:00 EDT, Routine, Reason: cancer staging, Transport Mode: Wheelchair, Hypoxia Hyponatremia COPD type A Fluid deficit Tobacco use Alcohol abuse ?? 3.??Alcohol abuse??F10.10 So far??not really having much in the way of withdrawal Ordered: magnesium sulfate, 2 g = 50 mL, IV Piggyback, Injection, Once, Administer over: 2 hr, First Dose: 01/14/23 13:00:00 EDT, Stop Date: 01/14/23 13:00:00 EDT, Physician Stop, Routine, 25 mL/hr potassium chloride, 40 mEq = 2 tab, Oral, Tab-ER, BID w/Meals for 30 days, First Dose: 01/14/23 13:00:00 EDT, Stop Date: 02/13/23 7:59:00 EDT, Physician Stop, Routine Change Accommodation, MedSurg, 01/14/23 13:17:00 EDT, Garrick Katz MD CT Abdomen and Pelvis w/ Contrast, 01/14/23 13:16:00 EDT, Routine, Reason: cancer staging, Transport Mode: Wheelchair, Hypoxia Hyponatremia COPD type A Fluid deficit Tobacco use Alcohol abuse ?? 4.??Pulmonary nodule??R91.1 Appears malignancy, will look back??at some records from [facility] as he states he was seen here??also??he??reports some early satiety so we will check a CT abdomen which is helpful for screening. ?? Electronically Signed on 01/14/23 01:28 PM Garrick Katz MD * Event Display: Progress Note - Physician Authored Date: [id number] Attending Physician - Brief Progress Note PERMANENT 01/13/2023 15:08 [facility] - ICU YANICK DOOLEY Date of Service 01/13/2023 15:08 HPI/Events of Note TeleICU Physician Note Hx: 62-year-old male with past medical history of alcohol use disorder with Warnicke's, hypothyroidism,COPD, fibromyalgia, GERD who presented on January 13 with 1 week history of viral-like syndrome associated with myalgias, dry cough. He is baseline oxygen requirement of 2 L required increase to 6 L perEMS to get a saturation of 88. Patient was admitted to intensive care unit for hypoxic respiratory failure. I established audio/visual connection with the patient's room and reviewed the EMR. On camera into the room patient is sitting upright in bed speaking short, hoarse, unlabored sentences with nurses on high flow nasal cannula. VS: HR 76 R 20 BP 149/114 SaO2 100% on high flow nasal cannula Remarkable data: Sodium 125, chloride 85, WBC 13.2, VB.42, PCO2 57 Viral panel negative Chest x-ray: Possible loculated left apical pneumothorax, right upper lung nodule, no focal consolidation, edema, or infiltrate. Chest CT: Pending Assessment/Recommendations: 62-year-old male with chronic lung disease and other medical issues as noted above, presents with hypoxic respiratory failure. Agree likely source is viral at this time, though viral panel was negative. No current indications for antibiotics. - Wean FiO2 to SaO2 88-92 as tolerated - Follow-up chest CT results, with possible pigtail as needed for pneumothorax - Sputum culture and Gram stain as available - COPD management as noted; could consider empiric antibiotics depending on past steroid/antibioticuse, and/or response to therapy. - Agree hyponatremia likely secondary to hypovolemia; consider urine studies/osm depending on clinical response - Comprehensive care per bedside team TeleICU will continue to monitor this patient and be available as needed for ongoing consultation. Thank you for allowing us to participate in the care of this patient. Interventions Intermediate-Respiratory distress - evaluation and management History and physical note * Keanu Wilson MD: PERFORM Event Display: History and Physical Authored Date: [id number] YANICK DOOLEY :1960 Age:62 years Sex:Male Visit Date:01/13/2023 Primary Care Physician: PRAKASH ALLRED APRN Chief Complaint Pt called EMS C/O sinus infection symptoms and difficulty breathing. History of Present Illness This is a 78-year-old male??who I am??quite familiar with. ??He has a severe past medical history. ??This includes alcohol abuse and Warnicke's encephalopathy. ??Tobacco abuse with COPD and slums of carcinoma.?? Hypertension, hypothyroidism, restless leg syndrome and fibromyalgia??with anxiety. ?? He is not a good story. ??The patient states that over the last week he has felt like he had a viral-like syndrome.?? He describes no sick contacts. ??He describes no travel. ?? Patient states that he??started having myalgias. ??Then he started having??a dry cough and feels like he cannot get his sputum up. ??Then he started having dyspnea and came to the emergency room for evaluation. ?? In the emergency room he is requiring much more than his 2 L base. ??He is tight. ??He is wheezy. ??He is on high flow oxygen.?? Satting well on such. ??His VBG is within normal limits as well. ?? He will need to come in for treatment of hypoxia. ?? Viral panel is pending. ??If this is negative or not satisfied I will send the patient for CT chest??as checks x-ray was nonrevealing except for hyperinflated lungs. Review of Systems Constitutional: Subjective chills, fatigue, myalgia ENT:??No ear pain, nasal congestion, sore throat Respiratory: Dyspnea, wheeze,??sputum Cardiovascular:??No Chest pain, palpitations, syncope Gastrointestinal:??No nausea, vomiting, diarrhea Genitourinary:??No hematuria Musculoskeletal: General myalgia Neurologic:??Alert & oriented X 4 Physical Exam Vitals & Measurements T:??36.7?C ??(Temporal Artery)?? HR:??61??(Peripheral)?? HR:??89??(Monitored)?? RR:??11?? BP:??130/96?? SpO2:??91%?? HT:??193.000??cm?? WT:??54.43??kg??(Estimated)?? O2 Flow Rate:??4?? O2 Therapy:??High-Flow nasal cannula?? General: Thin, cachectic.?? HENT: Me changes postsurgery.?? Lungs: Air movement is moderate at best, wheezy, no specific area of concern.?? Heart: Not Tachycardic. Abdomen: [Soft, non-tender, non-distended, normal bowel sounds, no masses].?? Musculoskeletal: [Normal range of motion and strength, no tenderness or swelling]. Skin: [Skin is warm, dry and pink, no rashes or lesions]. Neurologic: [Awake, alert and oriented X4, CN I-XII intact] Assessment/Plan 1.??Hypoxia??R09.02 Sounds like a viral illness but will need more work-up. ??Start with respiratory panel consider CT chest.?? No antibiotics at this time until??further work-up is completed. 2.??Hyponatremia??E87.1 Lactated Ringer's??at 75 mL an hour,??measures, remove offending agents, liberate salt in diet. 3.??COPD type A??J43.9 Maintain long-acting beta agonist, DuoNebs as needed and standing, Solu-Medrol. 4.??Fluid deficit??E86.1 LR 75 mL an hour. 5.??Tobacco use??Z72.0 Nicotine patch 6.??Alcohol abuse??F10.10 Check B12 and folate, thiamine, CIWA protocol. ?? Time spent in patient care today is 60 minutes. Orders: aspirin, 81 mg, Oral, Cap, Daily, First Dose: 01/14/23 9:00:00 EDT, Routine baclofen, 20 mg = 1 tab, Oral, Tab, BID, First Dose: 01/13/23 21:00:00 EDT, Routine Symbicort 160 mcg-4.5 mcg/inh inhalation aerosol, 2 puffs, Inhale, Aerosol, BID, First Dose: 01/13/23 21:00:00 EDT, Routine folic acid, 1 mg = 1 tab, Oral, Tab, Daily, First Dose: 01/14/23 9:00:00 EDT, Routine ipratropium-albuterol 0.5 mg-2.5 mg/3 mL inhalation solution, 3 mL, NEB, Soln, every 3 hr, PRN shortness of breath, First Dose: 01/13/23 13:47:00 EDT, Physician Stop, Routine ipratropium-albuterol 0.5 mg-2.5 mg/3 mL inhalation solution, 3 mL, NEB, Soln, every 3 hr, PRN shortness of breath, First Dose: 01/13/23 13:45:00 EDT, Physician Stop, Routine ipratropium-albuterol 0.5 mg-2.5 mg/3 mL inhalation solution, 3 mL, NEB, Soln, every 6 hr, First Dose: 01/13/23 14:00:00 EDT, Physician Stop, Routine Lactated Ringers Injection 1,000 mL, Total Volume (mL): 1,000, 1,000 mL, Soln- IV, IV, 75 mL/hr, Order Duration: 30 days, Start Date: 01/13/23 13:39:00 EDT, Stop Date: 02/12/23 13:38:00 EDT, 54.43 kg,Populate Charting Weight From Order, 1.71, m2 levothyroxine, 100 mcg = 1 tab, Oral, Tab, Daily, First Dose: 01/14/23 6:30:00 EDT, Routine LORazepam, 1 mg = 0.5 mL, IV Push, Injection, every 1 hr, PRN symptoms of alcohol withdrawal, FirstDose: 01/13/23 13:50:00 EDT, Routine magnesium oxide, 400 mg = 1 tab, Oral, Tab, Daily, First Dose: 01/14/23 9:00:00 EDT, Routine methylPREDNISolone, 60 mg = 1.5 mL, IV, Vial, every 6 hr (yun) for 30 days, First Dose: 01/13/23 18:00:00 EDT, Stop Date: 02/12/23 17:59:00 EDT, Physician Stop, Routine montelukast, 10 mg = 1 tab, Oral, Tab, Daily, First Dose: 01/14/23 9:00:00 EDT, Routine nicotine 14 mg/24 hr Transderm ER Film, 1 patches, TD, Film, every 24 hr, First Dose: 01/14/23 14:00:00 EDT, Routine Nicotine Patch Removal, 1 EA, TD, Misc, every 24 hr, First Dose: 01/14/23 14:00:00 EDT, Routine ondansetron, 4 mg = 1 tab, Oral, Tab, every 8 hr, PRN nausea/vomiting, First Dose: 01/13/23 13:41:00 EDT, Routine oxymetazoline 0.05% nasal spray, 1 sprays, Nasal, [place], BID for 30 days, First Dose: 01/13/23 21:00:00 EDT, Stop Date: 02/12/23 20:59:00 EDT, Physician Stop, Routine Protonix, 40 mg, Oral, Tab-DR, Daily for 30 days, First Dose: 01/14/23 6:30:00 EDT, Stop Date: 02/13/23 6:29:00 EDT, Physician Stop, Routine rOPINIRole, 4 mg, Oral, Daily, First Dose: 01/14/23 9:00:00 EDT, Routine thiamine, 100 mg, Oral, Tab, Daily, First Dose: 01/14/23 9:00:00 EDT, Routine Basic Metabolic Panel, Blood, Routine, 01/13/23 13:40:00 EDT, Daily, for 3 days, Lab Collect CBC w/ Diff, Blood, Routine, 01/13/23 13:40:00 EDT, Daily, for 3 days, Lab Collect Consult to Dietitian Adult, 01/13/23 13:39:00 EDT, Reason for Consult Education Diet Order, 01/13/23 13:39:00 EDT, Regular Fall Risk Precautions, 01/13/23 13:39:00 EDT Intake and Output, 01/13/23 13:39:00 EDT, every 12 hr (yun), q shift, 01/13/23 21:00:00 EDT Magnesium Level, Blood, Routine, 01/13/23 13:40:00 EDT, Daily, for 3 days, Lab Collect Notify Provider, 01/13/23 13:50:00 EDT, Constant order, of seizure activity, severe hallucincationsor delusions, or CIWA score of 19 or above Notify Provider of Vital Signs, 01/13/23 13:50:00 EDT, T > 38.3, HR > 110, Constant Indicator Occupational Therapy Evaluation and Treatment Acute, 01/13/23 13:39:00 EDT, Once Osmolality Urine, Urine, Stat Collect, 01/13/23 13:31:00 EDT, Once, Nurse collect, Print Label Patient Condition, 01/13/23 13:39:00 EDT, Condition Guarded Physical Therapy Evaluation and Treatment, 01/13/23 13:39:00 EDT, Once PSO Place in Observation, Observation, Observation, 01/13/23 13:33:00 EDT, 01/13/23 13:33:00 EDT, 01/13/23 13:33:00 EDT, 1 midnight or less Resuscitation Status, 01/13/23 13:39:00 EDT, Full Code Sodium Level Urine, Urine, Stat Collect, 01/13/23 13:31:00 EDT, Once, Nurse collect, Print Label Up ad Radha, 01/13/23 13:39:00 EDT, Constant Order, at nurse's discretion Vital Signs, 01/13/23 13:39:00 EDT, [facility] hr ([facility] Vital Signs, 01/13/23 13:50:00 EDT, Constant order, Assess on admission, q1h after each dose of medication until CIWA is less than 8 while awake, and q4h if CIWA is less than 8 x 24 hours while awake Weight, 01/14/23 5:00:00 EDT, every 24 hr Problem List/Past Medical History Ongoing Acquired hypothyroidism Alcohol abuse Altered mental status COPD (chronic obstructive pulmonary disease) External ear conductive hearing loss Fibromyalgia GERD without esophagitis Impacted cerumen Incontinence of urine Lumbar degenerative disc disease Otorrhea Primary hypomagnesemia RLS (restless legs syndrome) Syncope and collapse Tonsil carcinoma Historical No qualifying data Procedure/Surgical History ???Cardiac catheterization???Cholecystectomy???Colonoscopy???Insertion of chest tube???Repair of umbilical hernia???Splenectomy Medications Inpatient aspirin, 81 mg, Oral, Daily baclofen, 20 mg= 1 tab, Oral, BID folic acid, 1 mg= 1 tab, Oral, Daily ipratropium-albuterol 0.5 mg-2.5 mg/3 mL inhalation solution, 3 mL, NEB, every 3 hr, PRN ipratropium-albuterol 0.5 mg-2.5 mg/3 mL inhalation solution, 3 mL, NEB, every 6 hr ipratropium-albuterol 0.5 mg-2.5 mg/3 mL inhalation solution, 3 mL, NEB, every 3 hr, PRN Lactated Ringers Injection 1,000 mL, 1000 mL, IV levothyroxine, 100 mcg= 1 tab, Oral, Daily LORazepam, 1 mg= 0.5 mL, IV Push, every 1 hr, PRN magnesium oxide, 400 mg= 1 tab, Oral, Daily methylPREDNISolone, 60 mg= 1.5 mL, IV, every 6 hr (yun) montelukast, 10 mg= 1 tab, Oral, Daily nicotine 14 mg/24 hr Transderm ER Film, 1 patches, TD, every 24 hr Nicotine Patch Removal, 1 EA, TD, every 24 hr ondansetron, 4 mg= 1 tab, Oral, every 8 hr, PRN oxymetazoline 0.05% nasal spray, 1 sprays, Nasal, BID Protonix, 40 mg, Oral, Daily rOPINIRole, 4 mg, Oral, Daily Sodium Chloride 0.9% 1,000 mL, 1000 mL, IV Bolus Symbicort 160 mcg-4.5 mcg/inh inhalation aerosol, 2 puffs, Inhale, BID thiamine, 100 mg, Oral, Daily Home Albuterol (Eqv-Ventolin HFA) 90 mcg/inh inhalation aerosol, 2 puffs, Inhale, every 6 hr, PRN aspirin 81 mg oral capsule, 81 mg= 1 cap, Oral, Daily azelastine 137 mcg/inh (0.1%) nasal spray, 2 sprays, Nasal, BID baclofen 20 mg oral tablet, 20 mg= 1 tab, Oral, BID cetirizine 10 mg oral tablet diclofenac sodium 75 mg oral delayed release tablet, BID folic acid 1 mg oral tablet, 1 mg= 1 tab, Oral, Daily ipratropium-albuterol 0.5 mg-2.5 mg/3 mL inhalation solution, 3 mL, NEB, every 6 hr, PRN levothyroxine 100 mcg (0.1 mg) oral tablet, 100 mcg= 1 tab, Oral, Daily magnesium oxide 400 mg (241.3 mg elemental magnesium) oral tablet, 400 mg= 1 tab, Oral, Daily montelukast 10 mg oral tablet, 10 mg= 1 tab, Oral, Daily omeprazole 40 mg oral delayed release capsule, 40 mg= 1 cap, Oral, Daily ondansetron 4 mg oral tablet, 4 mg= 1 tab, Oral, every 8 hr, PRN predniSONE 10 mg oral tablet rOPINIRole, 4 mg, Oral, Daily Symbicort 160 mcg-4.5 mcg/inh inhalation aerosol, 2 puffs, Inhale, BID thiamine 100 mg oral tablet Allergies Duragesic-12??(Unknown) codeine??(Hives, itchy, SOB) morphine??(Unknown) varenicline??(confusion, disorientation) Social History Alcohol Current, Several times per day Electronic Cigarette/Vaping Electronic Cigarette Use: Never. Tobacco Former tobacco user Tobacco Use:. Family History Breast cancer: Mother. Family Member(s): ?? MOTHER, at age: Unknown. Cause of : Family Member(s): ?? FATHER, at age: Unknown. 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 ??Incidentally??was noted to have asymptomatic hyponatremia, see below as well as a pulmonary??mass on the right side, also see below. ??We are arranging [facility] outpatient follow-up??for the pulmonary nodule??he will go home with his home dose??of oxygen along with??some prednisone??and some MiraLAX for mild constipation. Physical Exam Vitals & Measurements T:??36.6?C ??(Temporal Artery)?? TMIN:??36.0?C ??(Temporal Artery)?? TMAX:??36.8?C ??(Temporal Artery)?? HR:??92??(Peripheral)?? RR:??16?? BP:??118/70?? SpO2:??96%?? WT:??57.9??kg?? Pain Score:??4?? O2 Flow Rate:??1.5?? O2 Therapy:??Nasal cannula?? General:??Alert and oriented, thin appearing but not acutely ill, No acute distress Eye:??PERRL, EOMI, normal conjunctiva Lungs:??Clear to auscultation and percussion, Non-labored respiration Heart:??Normal rate, Normal rhythm, No murmur, No gallop Abdomen:??Soft, non-tender, non-distended, normal bowel sounds, no masses Medications Inpatient aspirin, 81 mg= 1 tab, Oral, Daily baclofen, 20 mg= 2 tab, Oral, BID, PRN folic acid, 1 mg= 1 tab, Oral, Daily ipratropium-albuterol 0.5 mg-2.5 mg/3 mL inhalation solution, 3 mL, NEB, every 3 hr, PRN ipratropium-albuterol 0.5 mg-2.5 mg/3 mL inhalation solution, 3 mL, NEB, every 6 hr RT levothyroxine, 100 mcg= 1 tab, Oral, Daily LORazepam, 1 mg= 0.5 mL, IV Push, every 1 hr, PRN magnesium oxide, 400 mg= 1 tab, Oral, Daily methylPREDNISolone, 60 mg= 1.5 mL, IV, BID montelukast, 10 mg= 1 tab, Oral, Daily Mucinex, 1200 mg= 2 tab, Oral, BID ondansetron, 4 mg= 1 tab, Oral, every 8 hr, PRN Protonix, 40 mg= 1 tab, Oral, Daily rOPINIRole, 4 mg= 4 tab, Oral, every evening, PRN Symbicort 160 mcg-4.5 mcg/inh inhalation aerosol, 320 mcg= 2 inh, Inhale, BID thiamine, 100 mg= 1 tab, Oral, Daily Home Albuterol (Eqv-Ventolin HFA) 90 mcg/inh inhalation aerosol, 2 puffs, Inhale, every 6 hr, PRN aspirin 81 mg oral tablet, chewable, 81 mg= 1 tab, Chewed, Daily azelastine 137 mcg/inh (0.1%) nasal spray, 2 sprays, Nasal, BID, PRN baclofen 20 mg oral tablet, 20 mg= 1 tab, Oral, BID, PRN cetirizine 10 mg oral tablet, 10 mg= 1 tab, Oral, Daily, PRN folic acid 1 mg oral tablet, 1 mg= 1 tab, Oral, Daily ipratropium-albuterol 0.5 mg-2.5 mg/3 mL inhalation solution, 3 mL, NEB, every 6 hr, PRN levothyroxine 100 mcg (0.1 mg) oral tablet, 100 mcg= 1 tab, Oral, Daily magnesium oxide 400 mg (241.3 mg elemental magnesium) oral tablet, 400 mg= 1 tab, Oral, Daily MiraLax oral powder for reconstitution, 17 g, Oral, Daily montelukast 10 mg oral tablet, 10 mg= 1 tab, Oral, Daily multivitamin adult, oral tablet, 1 tab, Oral, Daily omeprazole 40 mg oral delayed release capsule, 40 mg= 1 cap, Oral, Daily ondansetron 4 mg oral tablet, 4 mg= 1 tab, Oral, every 8 hr, PRN predniSONE 20 mg oral tablet, 40 mg= 2 tab, Oral, Daily rOPINIRole, 4 mg, Oral, every night at bedtime, PRN Symbicort 160 mcg-4.5 mcg/inh inhalation aerosol, 2 puffs, Inhale, BID thiamine 100 mg oral tablet Procedure/Surgical History ???Cardiac catheterization???Cholecystectomy???Colonoscopy???Insertion of chest tube???Repair of umbilical hernia???Splenectomy Social History Alcohol Current, Several times per day Electronic Cigarette/Vaping Electronic Cigarette Use: Never. Home/Environment Lives with Roomate(s)/Friend(s). Living situation: Home/Independent. Home equipment: Cane. Tobacco Former tobacco user Tobacco Use:. Discharge Plan 1.??COPD (chronic obstructive pulmonary disease)??J44.9 Initially required 6 L quite tight and wheezing??placed on IV??Solu-Medrol along with bronchodilators??and was in the intensive care unit overnight??downgraded yesterday after doing really well??is maintained doing well now back to his home baseline O2 at about 2 L.?? No evidence of bacterial infection??so antibiotics??held??and he improved??without them.?? He will go home with??another 5 days??of p.o. prednisone. Ordered: Discharge Patient, 01/15/23 11:42:00 EDT Follow Up Appointment, 01/15/23 12:16:00 EDT, Referral to [facility] for lung mass, COPD (chronic obstructive pulmonary disease) Hyponatremia Alcohol abuse Pulmonary nodule ?? 2.??Hyponatremia??E87.1 Stable over a couple days here in mid 120s and asymptomatic.?? No evidence of this being from dehydration as he is euvolemic??query SIADH??outpatient follow- up for this.?? Urine lites and studies were sort of equivocal. Ordered: Change Accommodation, MedSurg, 01/14/23 13:17:00 EDT, Garrick Katz MD Discharge Patient, 01/15/23 11:42:00 EDT Follow Up Appointment, 01/15/23 12:16:00 EDT, Referral to [facility] for lung mass, COPD (chronic obstructive pulmonary disease) Hyponatremia Alcohol abuse Pulmonary nodule ?? 3.??Alcohol abuse??F10.10 Encouraged to quit drinking, did not have any??significant withdrawal while in the hospital. Ordered: Change Accommodation, MedSurg, 01/14/23 13:17:00 EDT, Garrick Katz MD Discharge Patient, 01/15/23 11:42:00 EDT Follow Up Appointment, 01/15/23 12:16:00 EDT, Referral to [facility] for lung mass, COPD (chronic obstructive pulmonary disease) Hyponatremia Alcohol abuse Pulmonary nodule ?? 4.??Pulmonary nodule??R91.1 Rather large right upper lobe nodule??quite malignant appearing, CT??abdomen pelvis for staging purposes with no evidence of metastatic spread.?? I placed an outpatient referral to [facility] pulmonary.?? He reports he had an pulmonary nodule in the past but??not sure of size I could not find any records in [facility]??and based on the appearance of this he would need follow- up??rather??quickly in any case. Ordered: Discharge Patient, 01/15/23 11:42:00 EDT Follow Up Appointment, 01/15/23 12:16:00 EDT, Referral to [facility] for lung mass, COPD (chronic obstructive pulmonary disease) Hyponatremia Alcohol abuse Pulmonary nodule ?? Orders: methylPREDNISolone, 60 mg = 1.5 mL, IV, Vial, BID for 30 days, First Dose: 01/14/23 21:00:00 EDT, Stop Date: 02/13/23 20:59:00 EDT, Physician Stop, Routine MiraLax oral powder for reconstitution, 17 g, Oral, Daily, # 510 g, 0 Refill(s), Pharmacy: [facility], [id number], cm, 01/13/23 15:52:00 EDT, Height/Length Dosing, 55.9, kg, 01/13/23 15:52:00EDT, Weight Dosing predniSONE 20 mg oral tablet, 40 mg = 2 tab, Oral, Daily, # 10 tab, 0 Refill(s), Pharmacy: [facility], 182.88, cm, 01/13/23 15:52:00 EDT, Height/Length Dosing, 55.9, kg, 01/13/23 15:52:00EDT, Weight Dosing Diet Order, 01/14/23 13:28:00 EDT, Regular, Fluid Permitted: 1500 mL All Diagnoses This Visit COPD (chronic obstructive pulmonary disease) Hyponatremia Alcohol abuse Pulmonary nodule Patient Education Pulmonary Nodule Follow Up With When Contact Information PRAKASH ALLRED APRN Within 1 month [address] [place] [address]- Additional Instructions: Medication Reconciliation New Prescription polyethylene glycol 3350 (MiraLax oral powder for reconstitution)17 Gram Oral (given by mouth) every day for 30 Days. Refills: 0. ?? Changed aspirin (aspirin 81 mg oral tablet, chewable)1 tab Chewed every day. ?? azelastine nasal (azelastine 137 mcg/inh (0.1%) nasal spray)2 Sprays Nasal (into the nose) 2 times a day as needed as needed for allergy symptoms. 90 mL, USE 2 SPRAY(S) IN EACH NOSTRIL TWICE DAILY. ?? baclofen (baclofen 20 mg oral tablet)1 tab Oral (given by mouth) 2 times a day as needed other (seecomment). 30 EA, TAKE 1 TABLET BY MOUTH EVERY 12 HOURS NEEDED FOR NECK PAIN. ?? cetirizine (cetirizine 10 mg oral tablet)1 tab Oral (given by mouth) every day as needed as needed for allergy symptoms. 1 Unknown. ?? predniSONE (predniSONE 20 mg oral tablet)2 tab Oral (given by mouth) every day for 5 Days. Refills:0. ?? rOPINIRole4 Milligrams Oral (given by mouth) every night at bedtime as needed other (see comment). ?? Unchanged albuterol (Albuterol (Eqv-Ventolin HFA) 90 mcg/inh inhalation aerosol)2 Puffs Inhale (breathe in) every 6 hours as needed as needed for wheezing. ?? budesonide-formoterol (Symbicort 160 mcg-4.5 mcg/inh inhalation aerosol)2 Puffs Inhale (breathe in)2 times a day. 33 g, INHALE 2 PUFFS BY MOUTH TWICE DAILY. ?? folic acid (folic acid 1 mg oral tablet)1 tab Oral (given by mouth) every day. 90 EA, TAKE 1 TABLETBY MOUTH ONCE DAILY. ?? ipratropium-albuterol (ipratropium-albuterol 0.5 mg-2.5 mg/3 mL inhalation solution)3 Milliliters Nebulized inhalation (inhale using nebulizer) every 6 hours as needed as needed for shortness of breath or wheezing. ?? levothyroxine (levothyroxine 100 mcg (0.1 mg) oral tablet)1 tab Oral (given by mouth) every day. 90EA, TAKE 1 TABLET BY MOUTH ONCE DAILY. ?? magnesium oxide (magnesium oxide 400 mg (241.3 mg elemental magnesium) oral tablet)1 tab Oral (given by mouth) every day. 90 EA, TAKE 1 TABLET BY MOUTH ONCE DAILY. ?? montelukast (montelukast 10 mg oral tablet)1 tab Oral (given by mouth) every day. 90 EA, TAKE 1 TABLET BY MOUTH ONCE DAILY. ?? multivitamin (multivitamin adult, oral tablet)1 tab Oral (given by mouth) every day. ?? omeprazole (omeprazole 40 mg oral delayed release capsule)1 Capsules Oral (given by mouth) every day. 90 EA, TAKE 1 CAPSULE BY MOUTH ONCE DAILY. ?? ondansetron (ondansetron 4 mg oral tablet)1 tab Oral (given by mouth) every 8 hours as needed nausea/vomiting. 30 EA, TAKE 1 TABLET BY MOUTH EVERY 8 HOURS NEEDED FOR NAUSEA AND FOR VOMITING. ?? thiamine (thiamine 100 mg oral tablet)1 Unknown. ?? Discontinued diclofenac (diclofenac sodium 75 mg oral delayed release tablet)2 times a day. 1 Unknown. Electronically Signed on 01/15/23 12:46 PM Garrick Katz MD CT Chest WO contrast * Marco A Michelle MD: VERIFY, VERIFY Event Display: Report PROCEDURE INFORMATION: Exam: CT Chest Without Contrast; Diagnostic Exam date and time: 01/13/2023 5:14 PM Age: 62 years old Clinical indication: Other: Hypoxia; Additional info: Pneomothorax, hypoxia TECHNIQUE: Imaging protocol: Diagnostic computed tomography of the chest without contrast. Radiation optimization: All CT scans at this facility use at least one of these dose optimization techniques: automated exposure control; mA and/or kV adjustment per patient size (includes targeted exams where dose is matched to clinical indication); or iterative reconstruction. REPORTING DATA: Count of CT and Cardiac NM exams in prior 12 months: This patient has received [address] and 0 known cardiac nuclear medicine studies in the 12 months prior to the current study. COMPARISON: Prior CT chest 2 point of 10/04/2021 1:13 PM FINDINGS: Lungs: New 2.7 x 2.2 x 2.6 round mass with spiculated margins in the right lung apex, highly suspicious for malignancy. 7 x 5 mm noncalcified nodule in the right upper lobe, image 47/series 5. Dense, focal consolidation in the left lung posteriorly and medially, highly suspicious for diffuse left lower lobe collapse. There is cut off of the left lower lobe bronchus, cause not identified on this unenhanced exam.. Moderate to severe emphysema. No diffuse pulmonary nodules or masses. Pleural spaces: No pneumothorax or pleural effusions. Heart: No acute cardiac abnormality identified by CT. No significant pericardial effusion. Coronary arteries: No significant coronary artery calcification. Lymph nodes: No evidence of diffuse lymphadenopathy. Unenhanced technique somewhat limits evaluation for hilar lymphadenopathy. Vasculature: No acute abnormality, allowing for unenhanced technique. Bones/joints: Multiple chronic-appearing vertebral compression fractures, greatest at T8, where there is a 50% chronic compression fracture. No evidence of diffuse bony lesions. Soft tissues: No acute abnormality. IMPRESSION: 1. 2.7 cm mass with spiculated margins in the right lung apex, highly suspicious for malignancy. 2. Findings highly suspicious for diffuse left lower lobe collapse with cut off of the left lower lobe bronchus, cause not identified on this exam. 3. 6 mm noncalcified right lung nodule. 4. Emphysema. 5. See above for remaining chronic and/or incidental findings. THIS DOCUMENT HAS BEEN ELECTRONICALLY SIGNED BY MARCO A MICHELLE MD on 01/13/2023 05:53 PM Final Signed by: Marco A Michelle MD Signed (Electronic Signature): 01/13/2023 5:[address] Abdomen and Pelvis W contrast IV * Chavo Mckinney MD: VERIFY, VERIFY Event Display: Report PROCEDURE INFORMATION: Exam: CT Abdomen And Pelvis With Contrast Exam date and time: 01/14/2023 7:41 PM Age: 62 years old Clinical indication: Hypovolemia; Hypovolemia; Hypo-osmolality and hyponatremia; Hypo-osmolality and hyponatremia; Alcohol abuse, uncomplicated; Alcohol abuse, uncomplicated; Emphysema, unspecified; Emphysema, unspecified; Hypoxemia; Hypoxemia; Tobacco use; Tobacco use; Additional info: Cancer staging TECHNIQUE: Imaging protocol: Computed tomography of the abdomen and pelvis with contrast. Radiation optimization: All CT scans at this facility use at least one of these dose optimization techniques: automated exposure control; mA and/or kV adjustment per patient size (includes targeted exams where dose is matched to clinical indication); or iterative reconstruction. Contrast material: ISOVUE 300; Contrast volume: 100 ml; Contrast route: INTRAVENOUS (IV); REPORTING DATA: Count of CT and Cardiac NM exams in prior 12 months: This patient has received 2 known [address]s and 0 known cardiac nuclear medicine studies in the 12 months prior to the current study. COMPARISON: CT ABD/PELVIS W CONTRAST 07/13/2017 1:27 PM FINDINGS: Lungs: Emphysema in lung bases. Atelectasis or consolidation with mucoid material in collapse bronchi in medial left lung base Liver: Normal. No mass. Gallbladder and bile ducts: Normal. No calcified stones. No ductal dilation. Pancreas: Normal. No ductal dilation. Spleen: Normal. No splenomegaly. Adrenal glands: Normal. No mass. Kidneys and ureters: Normal. No hydronephrosis. Stomach and bowel: Copious colonic stool. Bowel gas pattern nonobstructive Appendix: No evidence of appendicitis. Intraperitoneal space: Unremarkable. No free air. No significant fluid collection. Vasculature: Unremarkable. No abdominal aortic aneurysm. Lymph nodes: Unremarkable. No enlarged lymph nodes. Urinary bladder: Unremarkable as visualized. Reproductive: Unremarkable as visualized. Bones/joints: Unremarkable. No acute fracture. Soft tissues: Unremarkable. IMPRESSION: 1. Suspected constipation 2. Consolidation or atelectasis medial left lung base. Mucoid material throughout the associated bronchi. Consider drowned lung. THIS DOCUMENT HAS BEEN ELECTRONICALLY SIGNED BY CHAVO MCKINNEY MD on 01/14/2023 08:15 PM Final Signed by: Chavo Mckinney MD Signed (Electronic Signature): 01/14/2023 8:15 pm XR Chest Single view * Tim Manzanares MD: VERIFY, VERIFY Event Display: Report EXAM DESCRIPTION: XR Chest 1 View 01/13/2023 INDICATION: SHORTNESS OF BREATH COMPARISON: CT angiography chest and AP chest radiograph from 05/31/2022 IMPRESSION: Lucency in the left apex with curvilinear interface suspicious for mild-moderate loculated left apical pneumothorax with underlying bullous changes. This appears new since prior study in this region. CT correlation is recommended. Nodular opacity in the right upper lung field. Pulmonary nodule was seen in this region on previous CT chest examination. Findings are suspicious for neoplastic nodule. Lungs otherwise clear with no focal consolidation or pulmonary edema with chronic appearing coarse interstitial changes bilaterally Normal cardiomediastinal contour. No significant pleural effusion. Results were telephoned to ER provider at the time of interpretation. JOB #: [id number] Final Signed by: Tim Manzanares MD Signed (Electronic Signature): 01/13/2023 2:50 pm Patient Care team information Care Team Personnel Name: PRAKASH ALLRED APRN Position: No Access Member Role: Primary Care Physician Address: Address: [address] [place], [place] [address] Name: ED Givens Position: Physician Member Role: Physician Material Handler Address: Address: [address] [place] [address] Name: Darius Henry Position: Nurse Member Role: Registered Nurse Care Team Related Persons Name: ANDRESSA DOOLEY Address: Home [address] [facility] [address] [place] [address] [facility] Name: GARRICK PASTRANA Address: Home [address] [place] [phone] [facility] Address: Mailing [address] [place], [place] [id number]
--- OUTSIDE RECORDS SUMMARY | 2023-03-13 21:14 | XMS_ITS | Continuity of Care Document ---
Author Name Unknown Organization [facility] Address [address] [place] [address] Care Team Providers Care Stone Finisher Name Role Phone PRAKASH ALLRED APRN Primary Care Physician Encounter LTTL_LA FIN NBR [phone] Date(s): 03/01/23 - 03/05/[address] [id number] Encounter Diagnosis COPD with exacerbation(Discharge Diagnosis) - 03/01/23 Pneumonia(Discharge Diagnosis) - 03/01/23 Oral thrush(Discharge Diagnosis) - 03/01/23 Hyponatremia(Discharge Diagnosis) - 03/01/23 Neuro-endocrine carcinoma(Discharge Diagnosis) - 03/01/23 GERD without esophagitis(Discharge Diagnosis) - 03/01/23 Alcohol abuse(Discharge Diagnosis) - 03/02/23 Prediabetes(Discharge Diagnosis) - 03/03/23 Leukocytosis(Discharge Diagnosis) - 03/05/23 Discharge Disposition: Home or Self Care Attending Physician: Lisset Slater MD Admitting Physician: Aileen Nielsen APRN Allergies, Adverse Reactions, Alerts Substance Reaction Severity Status codeine Hives, itchy, SOB Mild Active morphine Unknown Mild Active varenicline confusion, disorientation Mild Ac tive Duragesic-12 Unknown Mild Active Functional Status 03/05/23 Living Environment Living Situation: Current Home Treatments: Home Devices/Equipment Cane, Oxygen, Comments: pt has home oxygen through [employer] 3-4 liters cont. Professional Skilled Services: Special Services and Community Resources: Sensory Deficits: Performed by: Viji Ponce-03/03/23 13:02:00 Living Situation: Current Home Treatments: Home Devices/Equipment Oxygen Professional Skilled Services: Special Services and Community Resources: Sensory Deficits: Performed by: Ayanna Zavala-03/01/23 23:13:00 Lives In Multilevel home Lives With Friend Living Situation Other: Pt rents a ro om, lives upstairs Home Barriers None Current Home Treatments Oxygen therapy Home Equipment Cane, Oxygen 03/05/23 Activity Status ADL Sleeping 03/05/23 Personal Care Provided Other: CLAIMS CLERK set up in bathroom for pt. Pt independent with care. 03/04/23 Lunch Percent 100 03/04/23 Breakfast Percent 100 03/02/23 Morning Snack Percent 100 03/01/23 Family Member Travel History No recent t ravel Recent Travel History No recent travel Other exposure to Infectious Disease Non e Medications Albuterol (Eqv-Ventolin HFA) 90 mcg/inh inhalation aerosol 2 puffs, Inhale, every 4 hr, PRN as needed for wheezing Start Date: 01/13/23 Status: Ordered aspirin 81 mg oral tablet, chewable 81 mg = 1 tab, Chewed, Daily, 0 Refill(s) Start Date: 01/13/23 Status: Ordered azelastine 137 mcg/inh (0.1%) nasal spray 2 sprays, Nasal, BID, PRN as needed for allergy symptoms, 0 Refill(s) Start Date: 01/03/23 Status: Ordered baclofen 20 mg oral tablet 20 mg = 1 tab, Oral, BID, PRN other (see comment), NEEDED FOR NECK PAIN, 0 Refill(s) Start Date: 01/03/23 Status: Ordered cetirizine 10 mg oral tablet 10 mg = 1 tab, Oral, Daily, PRN as needed for allergy symptoms, 1 Unknown, 0 Refill(s) Start Date: 01/03/23 Status: Ordered folic acid 1 mg oral tablet 1 mg = 1 tab, Oral, every morning, 0 Refill(s) Start Date: 01/03/23 Status: Ordered ipratropium-albuterol 0.5 mg-2.5 mg/3 mL inhalation solution 3 mL, NEB, every 4 hr, PRN as needed for shortness of breath or wheezing Start Date: 01/13/23 Status: Ordered levothyroxine 100 mcg (0.1 mg) oral tablet 100 mcg = 1 tab, Oral, every morning, 0 Refill(s) Start Date: 01/03/23 Status: Ordered linezolid 600 mg oral tablet 600 mg = 1 tab, Oral, every 12 hr, # 22 tab, 0 Refill(s), Pharmacy: [facility], [id number],cm, 03/01/23 22:27:00 EDT, Height/Length Dosing, 57, kg, 03/01/23 22:27:00 EDT, Weight Dosing Start Date: 03/05/23 Stop Date: 03/16/23 Status: Ordered magnesium oxide 400 mg (241.3 mg elemental magnesium) oral tablet 400 mg = 1 tab, Oral, every morning, 0 Refill(s) Start Date: 01/03/23 Status: Ordered montelukast 10 mg oral tablet 10 mg = 1 tab, Oral, every morning, 0 Refill(s) Start Date: 01/03/23 Status: Ordered multivitamin adult, oral tablet 1 tab, Oral, Daily, 0 Refill(s) Start Date: 01/13/23 Status: Ordered nystatin 100,000 units/mL oral suspension 500,000 units = 5 mL, Oral, QID, 0 Refill(s) Start Date: 01/23/23 Status: Ordered omeprazole 40 mg oral delayed release capsule 40 mg = 1 cap, Oral, every morning, 0 Refill(s) Start Date: 01/03/23 Status: Ordered ondansetron 4 mg oral tablet 4 mg = 1 tab, Oral, every 8 hr, PRN nausea/vomiting, 0 Refill(s) Start Date: 01/03/23 Status: Ordered [id number] oral powder for reconstitution 17 g, Oral, Daily, PRN constipation Start Date: 03/02/23 Status: Ordered predniSONE 20 mg oral tablet 40 mg = 2 tab, Oral, Daily, # 2 tab, 0 Refill(s), Pharmacy: [facility], [id number], cm, 03/01/23 22:27:00 EDT, Height/Length Dosing, 57, kg, 03/01/23 22:27:00 EDT, Weight Dosing Start Date: 03/05/23 Stop Date: 03/06/23 Status: Ordered Symbicort 160 mcg-4.5 mcg/inh inhalation aerosol 2 puffs, Inhale, BID, 0 Refill(s) Start Date: 01/03/23 Status: Ordered thiamine 250 mg oral tablet 250 mg = 1 tab, Oral, Daily Start Date: 03/02/23 Status: Ordered Vitamin B12 1000 mcg oral tablet 1,000 mcg = 1 tab, Oral, Daily Start Date: 03/02/23 Status: Ordered Vitamin B6 100 mg oral tablet 100 mg = 1 tab, Oral, Daily Start Date: 03/02/23 Status: Ordered Vitamin C 500 mg oral tablet, chewable 500 mg = 1 tab, Chewed, Daily Start Date: 03/02/23 Status: Ordered Vitamin D3 125 mcg (5000 intl units) oral tablet, disintegrating 125 mcg = 1 tab, Oral, Daily Start Date: 03/02/23 Status: Ordered zinc (as gluconate) 50 mg oral tablet 25 mg = 0.5 tab, Oral, every other day Start Date: 03/02/23 Status: Ordered zolpidem 10 mg oral tablet 10 mg = 1 tab, Oral, every day at bedtime, PRN as needed for insomnia Start Date: 03/02/23 Status: Ordered Mental Status 03/03/23 Eye Opening Response [place] Spontaneous ly Best Verbal Response Nery Oriented Best Motor Response Nery Obeys comman ds [place] Coma Score 15 Problem List Condition Confirmation Course Effective Dates Status H ealth Status Informant Acquired hypothyroidism Confirmed Active Alcohol abuse Confirmed Active Altered mental status Confirmed Active COPD (chronic obstructive pulmonary disease) Confirmed Active Lumbar degenerative disc disease Confirmed Active External ear conductive hearing loss Confirmed Active Fibromyalgia Confirmed Active GERD without esophagitis Confirmed Active Impacted cerumen Confirmed Active Otorrhea Confirmed Active Prediabetes Confirmed Active Primary hypomagnesemia Confirmed Active RLS (restless legs syndrome) Confirmed Active Syncope and collapse Confirmed Active Tonsil carcinoma Confirmed Active Incontinence of urine Confirmed Active Procedures Procedure Date Related Diagnosis Body Site Status Cardiac catheterization C ompleted Cholecystectomy Completed Colonoscopy Completed Insertion of chest tube C ompleted Repair of umbilical hernia Completed Splenectomy Completed Results Laboratory List Name Date Vancomycin Level Trough 03/05/23 .Manual Differential (LTTL) 03/04/23 CBC w/ Manual Diff 03/04/23 Vancomycin Level Trough 03/04/23 White Blood Cell Count 03/04/23 .Manual Differential (LTTL) 03/04/23 Basic Metabolic Panel (BMP) 03/04/23 CBC w/ Diff 03/04/23 .Manual Differential (LTTL) 03/03/23 Basic Metabolic Panel (BMP) 03/03/23 CBC w/ Diff 03/03/23 Hgb A1c (Hemoglobin A1C) 03/03/23 Hgb A1c (Hemoglobin A1C) 03/03/23 Automated Diff 03/02/23 Basic Metabolic Panel (BMP) 03/02/23 Legionella Antigen Urine 03/02/23 Streptococcus Pneumoniae Antigen Urine Respiratory Panel 2.1 ([employer]) 03/01/23 .Manual Differential (LTTL) 03/01/23 CBC w/ Diff 03/01/23 Comprehensive Metabolic Panel (CMP) 03/01 PT/ INR 03/01/23 Procalcitonin 03/01/23 TSH w/ Rflx to Free T4 03/01/23 Troponin-I 03/01/23 Most recent to oldest [Reference Range]: 1 2 3 WBC [4.8-10.8 K/mcL] 36.5 K/mcL 1 *CRIT* (03/04/23 3:30 PM) 38.4 K/mcL 2 *CRIT* (03/04/23 8:43 AM) 34.6 K/mcL 3 *CRIT* (03/04/23 6:20 AM) RBC [4.20-6.10 Million/mcL] 3.22 Million /mcL *LOW* (03/04/23 3:30 PM) 2.86 Million/mcL *LOW* (03/04/23 6:20 AM) 2.93 Million/mcL *LOW* (03/03/23 6:10 AM) Segs Man 92 *NA* (03/04/23 3:30 PM) 98 *NA* (03/04/23 6:20 AM) 96 *NA* (03/03/23 6:10 AM) Lymph Man [20.5-51.1 %] 2.0 % *LOW* (03/04/23 3:30 PM) 0.0 % *LOW* (03/04/23 6:20 AM) 0.0 % *LOW* (03/03/23 6:10 AM) Neutro Auto [42.2-75.2 %] 69.8 % (03/02/23 5:17 AM) Lymph Auto [20.5-51.1 %] 1.1 % *LOW* (03/02/23 5:17 AM) Davis Auto [1.7-9.3 %] 1.5 % *LOW* (03/02/23 5:17 AM) Basophil Auto [0.0-0.8 %] 0.2 % (03/02/23 5:17 AM) Davis Man [1.7-9.3 %] 5.0 % (03/04/23 3:30 PM) 2.0 % (03/04/23 6:20 AM) 2.0 % (03/03/23 6:10 AM) Eos Man [0.00-3.00 %] 0.00 % (03/04/23 3:30 PM) 0.00 % (03/04/23 6:20 AM) 0.00 % (03/03/23 6:10 AM) Prothrombin Time [9.1-10.6 seconds] 10.7 seconds *HI* (03/01/23 6:33 PM) INR [0.9-1.1] 1.1 (03/01/23 6:33 PM) BUN [8-26 mg/dL] 17 mg/dL (03/04/23 6:20 AM) 12 mg/dL (03/03/23 6:10 AM) 12 mg/dL (03/02/23 5:17 AM) Glucose Level [74-106 mg/dL] 141 mg/dL *HI* (03/04/23 6:20 AM) 170 mg/dL *HI* (03/03/23 6:10 AM) 125 mg/dL *HI* (03/02/23 5:17 AM) Potassium Level [3.5-5.1 mmol/L] 3.3 mmol/L *LOW* (03/04/23 6:20 AM) 3.5 mmol/L (03/03/23 6:10 AM) 3.8 mmol/L (03/02/23 5:17 AM) Baso Absolute [0.0-0.2 K/mcL] 0.0 K/mcL (03/02/23 5:17 AM) Vanco Tr 20.3 mcg/mL *NA* (03/05/23 4:05 AM) 25.6 mcg/mL 4 *NA* (03/04/23 12:38 PM) MCV [80.0-94.0 fL] 91.6 fL (03/04/23 3:30 PM) 92.3 fL (03/04/23 6:20 AM) 91.1 fL (03/03/23 6:10 AM) RBC Morph [Normal] Abnormal *ABN* (03/04/23 3:30 PM) Normal (03/04/23 6:20 AM) Normal (03/03/23 6:10 AM) Legionella Ag Ur [Negative] Negative (03/02/23 4:15 AM) AST [15-41 IntlUnit/L] 21 IntlUnit/L (03/01/23 6:33 PM) ALT [17-63 IntlUnit/L] 10 IntlUnit/L *LOW* (03/01/23 6:33 PM) MCHC [32.0-36.0 g/dL] 33.9 g/dL (03/04/23 3:30 PM) 33.7 g/dL (03/04/23 6:20 AM) 34.1 g/dL (03/03/23 6:10 AM) Osmolality [275-295 mOsm/kg] 263 mOsm/kg *LOW* (03/04/23 6:20 AM) 261 mOsm/kg *LOW* (03/03/23 6:10 AM) 253 mOsm/kg *LOW* (03/02/23 5:17 AM) Troponin-I [<=0.05 ng/mL] 0.04 ng/mL (03/01/23 6:33 PM) Sodium Level [134-143 mmol/L] 129 mmol/L *LOW* (03/04/23 6:20 AM) 128 mmol/L *LOW* (03/03/23 6:10 AM) 125 mmol/L 5 *CRIT* (03/02/23 5:17 AM) Lymph Absolute [1.2-3.4 K/mcL] 0.2 K/mcL *LOW* (03/02/23 5:17 AM) Hct [42.0-52.0 %] 29.5 % *LOW* (03/04/23 3:30 PM) 26.4 % *LOW* (03/04/23 6:20 AM) 26.7 % *LOW* (03/03/23 6:10 AM) Hypochromia 1+ *ABN* (03/04/23 3:30 PM) 2+ *ABN* (03/01/23 6:33 PM) Calcium Level [8.9-10.3 mg/dL] 9.6 mg/dL (03/04/23 6:20 AM) 9.9 mg/dL (03/03/23 6:10 AM) 10.0 mg/dL (03/02/23 5:17 AM) Davis Absolute [0.1-0.6 K/mcL] 0.4 K/mcL (03/02/23 5:17 AM) Albumin Level [3.5-5.0 g/dL] 3.2 g/dL *LOW* (03/01/23 6:33 PM) Protein Total [6.5-8.1 g/dL] 7.5 g/dL (03/01/23 6:33 PM) Poik 1+ *ABN* (03/04/23 3:30 PM) MCH [27.0-31.0 pg] 31.1 pg *HI* (03/04/23 3:30 PM) 31.1 pg *HI* (03/04/23 6:20 AM) 31.1 pg *HI* (03/03/23 6:10 AM) Neutro Absolute [1.4-6.5 K/mcL] 15.9 K/mcL *HI* (03/02/23 5:17 AM) Bilirubin Total [0.2-1.2 mg/dL] 0.8 mg/dL (03/01/23 6:33 PM) Hgb [14.0-18.0 g/dL] 10.0 g/dL *LOW* (03/04/23 3:30 PM) 8.9 g/dL *LOW* (03/04/23 6:20 AM) 9.1 g/dL *LOW* (03/03/23 6:10 AM) Alk Phos [38-130 IntlUnit/L] 113 IntlUni t/L (03/01/23 6:33 PM) MPV [7.4-10.4 fL] 8.8 fL (03/04/23 3:30 PM) 8.6 fL (03/04/23 6:20 AM) 8.9 fL (03/03/23 6:10 AM) Toxic Gran Few *ABN* (03/04/23 3:30 PM) Band Man 1 % *NA* (03/04/23 3:30 PM) 0 % *NA* (03/04/23 6:20 AM) 2 % *NA* (03/03/23 6:10 AM) Platelets [130-400 K/mcL] 601 K/mcL *HI* (03/04/23 3:30 PM) 526 K/mcL *HI* (03/04/23 6:20 AM) 560 K/mcL *HI* (03/03/23 6:10 AM) CO2 [22-32 mmol/L] 30 mmol/L (03/04/23 6:20 AM) 27 mmol/L (03/03/23 6:10 AM) 29 mmol/L (03/02/23 5:17 AM) Eos Absolute [0.0-0.2 K/mcL] 6.0 K/mcL *HI* (03/02/23 5:17 AM) TSH [0.45-5.33 mIntlUnit/mL] 1.38 mIntlU nit/mL (03/01/23 6:33 PM) eAvg Glucose 126 *NA* (03/03/23 6:10 AM) 131 *NA* (03/03/23 6:10 AM) Chloride Level [98-111 mmol/L] 90 mmol/L *LOW* (03/04/23 6:20 AM) 92 mmol/L *LOW* (03/03/23 6:10 AM) 87 mmol/L *LOW* (03/02/23 5:17 AM) Procalcitonin [0.00-0.08] 0.64 *HI* (03/01/23 6:33 PM) RDW-CV [11.5-14.5 %] 15.1 % *HI* (03/04/23 3:30 PM) 15.0 % *HI* (03/04/23 6:20 AM) 14.6 % *HI* (03/03/23 6:10 AM) Adenovirus RespP-BFire [Not Detected] Not Detected (03/01/23 7:55 PM) Bordetella parapertussis RespP-BFire [Not Detected] Not Detected (03/01/23 7:55 PM) Bordetella pertussis RespP-BFire [Not Detected] Not Detected (03/01/23 7:55 PM) Chlamydophila pneumoniae RespP-BFire [Not Detected] Not Detected (03/01/23 7:55 PM) Coronavirus 229E (Not COVID-19) RP-BFire [Not Detected] Not Detected (03/01/23 7:55 PM) Coronavirus HKU1 (Not COVID-19) RP-BFire [Not Detected] Not Detected (03/01/23 7:55 PM) Coronavirus NL63 (Not COVID-19) RP-BFire [Not Detected] Not Detected (03/01/23 7:55 PM) Coronavirus OC43 (Not COVID-19) RP-BFire [Not Detected] Not Detected (03/01/23 7:55 PM) Human Metapneumonovirus RespP-BFire [Not Detected] Not Detected (03/01/23 7:55 PM) Human Rhinovirus/Enterovirus RespP-BFir [Not Detected] Not Detected (03/01/23 7:55 PM) Influenza A RespP-BFire [Not Detected] Not Detected (03/01/23 7:55 PM) Influenza B RespP-BFire [Not Detected] Not Detected (03/01/23 7:55 PM) Mycomplasma pneumoniae RespP-BFire [Not Detected] Not Detected (03/01/23 7:55 PM) Parainfluenza Virus 1 RespP-BFire [Not Detected] Not Detected (03/01/23 7:55 PM) Parainfluenza Virus 2 RespP-BFire [Not Detected] Not Detected (03/01/23 7:55 PM) Parainfluenza Virus 3 RespP-BFire [Not Detected] Not Detected (03/01/23 7:55 PM) Parainfluenza Virus 4 RespP-BFire [Not Detected] Not Detected (03/01/23 7:55 PM) Respiratory Syncytial Virus RespP-BFire [Not Detected] Not Detected (03/01/23 7:55 PM) A/G Ratio 0.7 *NA* (03/01/23 6:33 PM) BUN/Creat Ratio [8.0-20.0] 33.3 *HI* (03/04/23 6:20 AM) 23.5 *HI* (03/03/23 6:10 AM) 18.8 (03/02/23 5:17 AM) Globulin 4.3 *NA* (03/01/23 6:33 PM) Imm Gran Absolute 0.27 *NA* (03/02/23 5:17 AM) Imm Gran Auto [0.0-0.5 %] 1.2 % *HI* (03/02/23 5:17 AM) Slide Review Man Diff (03/04/23 6:20 AM) Man Diff (03/03/23 6:10 AM) Man Diff (03/01/23 6:33 PM) [facility] Dt. 05-MAR-2023 *Unknown* (03/05/23 4:05 AM) 04-MAR-2023 *Unknown* (03/04/23 12:38 PM) [facility] Ds Tm. 1900 *NA* (03/05/23 4:05 AM) 1230 *NA* (03/04/23 12:38 PM) Abs Baso Man [0.0-0.2 K/mcL] 0.0 K/mcL (03/04/23 3:30 PM) 0.0 K/mcL (03/04/23 6:20 AM) 0.0 K/mcL (03/03/23 6:10 AM) Abs Eos Man [0.0-0.2 K/mcL] 0.0 K/mcL (03/04/23 3:30 PM) 0.0 K/mcL (03/04/23 6:20 AM) 0.0 K/mcL (03/03/23 6:10 AM) Abs Lymph Man [1.2-3.4 K/mcL] 0.7 K/mcL *LOW* (03/04/23 3:30 PM) 0.0 K/mcL *LOW* (03/04/23 6:20 AM) 0.0 K/mcL *LOW* (03/03/23 6:10 AM) Abs Davis Man [0.1-0.6 K/mcL] 1.8 K/mcL *HI* (03/04/23 3:30 PM) 0.7 K/mcL *HI* (03/04/23 6:20 AM) 0.5 K/mcL (03/03/23 6:10 AM) Abs Neut Man [1.4-6.5 K/mcL] 33.9 K/mcL *HI* (03/04/23 3:30 PM) 33.9 K/mcL *HI* (03/04/23 6:20 AM) 26.9 K/mcL *HI* (03/03/23 6:10 AM) Hgb A1c Percent [4.0-6.0 %] 6.0 % (03/03/23 6:10 AM) 6.2 % *HI* (03/03/23 6:10 AM) .Hb 9.5 g/dL *NA* (03/03/23 6:10 AM) 9.1 g/dL *NA* (03/03/23 6:10 AM) .Hgb A1c 0.4 g/dL *NA* (03/03/23 6:10 AM) 0.4 g/dL *NA* (03/03/23 6:10 AM) Creatinine Level [0.61-1.24 mg/dL] 0.51 mg/dL *LOW* (03/04/23 6:20 AM) 0.51 mg/dL *LOW* (03/03/23 6:10 AM) 0.64 mg/dL (03/02/23 5:17 AM) SARS-CoV-2 (COVID-19) RP-BFire [Not Detected] Not Detected (03/01/23 7:55 PM) Plt Estimation Increased *ABN* (03/04/23 3:30 PM) Increased *ABN* (03/04/23 6:20 AM) Increased *ABN* (03/03/23 6:10 AM) Employed in healthcare? Unknown *NA* (03/01/23 7:55 PM) Symptomatic as defined by CDC? Unknown *NA* (03/01/23 7:55 PM) Hospitalized due to COVID-19? Unknown *NA* (03/01/23 7:55 PM) In ICU? Unknown *NA* (03/01/23 7:55 PM) Group care resident? Unknown *NA* (03/01/23 7:55 PM) status? Unknown *NA* (03/01/23 7:55 PM) Anion Gap [3.0-12.0] 9.0 (03/04/23 6:20 AM) 9.0 (03/03/23 6:10 AM) 9.0 (03/02/23 5:17 AM) Baso Man [0.0-0.8 %] 0.0 % (03/04/23 3:30 PM) 0.0 % (03/04/23 6:20 AM) 0.0 % (03/03/23 6:10 AM) Eos, Auto [0.00-3.00 %] 26.20 % *HI* (03/02/23 5:17 AM) Streptococcus Pneumonia Antigen [Negative] Negative (03/02/23 4:15 AM) eGFR CKD-EPI [>=60 mL/min/1.73 m2] 116 mL/min/1.73 m2 (03/04/23 6:20 AM) 116 mL/min/1.73 m2 (03/03/23 6:10 AM) 108 mL/min/1.73 m2 (03/02/23 5:17 AM) 1Result Comment: Called Funmi Huston read back by donovan at 03/04/2023 15:53:03 EDT 2Result Comment: Called Funmi HustonRN/MS read back by donovan at 03/04/2023 08:53:27 EDT 3Result Comment: Called and read back by Inocencio Salguero RN at 03/04/2023 06:40:25 EDT NL Results verified by repeat analysis. 4Result Comment: Called & read back byMick Huston @ 1300 - WR_ 5Result Comment: Called Ayanna Fragoso read back by GRECIA DICKENS at 03/02/2023 05:52:18 EDT. Results verified by repeat analysis. Orders for Microbiology Reports Name Date Blood Culture 03/04/23 Blood Culture 03/04/23 Sputum Culture 03/03/23 Blood Culture 03/01/23 Blood Culture 03/01/23 Microbiology Reports TEST:Blood Culture STATUS:Order in Progress BODY SITE:Right Arm SOURCE:Peripheral Blood COLLECTED DATE/TIME:03/04/23 5:01 PM PRELIMINARY REPORT No growth at 1 day. TEST:Blood Culture STATUS:Order in Progress BODY SITE:Left Arm SOURCE:Peripheral Blood COLLECTED DATE/TIME:03/04/23 4:56 PM PRELIMINARY REPORT No growth at 1 day. TEST:Sputum Culture STATUS:Auth (Verified) BODY SITE: SOURCE:Sputum COLLECTED DATE/TIME:03/03/23 9:18 AM FINAL REPORT Decreased normal renetta Presence of fungus STAIN REPORT >25 White Blood Cells <10 squamous epithelial cells Q Score +2, specimen suitable for culture Rare Gram Positive Cocci Few Gram Negative Bacilli TEST:Blood Culture STATUS:Order in Progress BODY SITE:Left Arm SOURCE:Blood COLLECTED DATE/TIME:03/01/23 6:33 PM PRELIMINARY REPORT No growth at 2 days. TEST:Blood Culture STATUS:Order in Progress BODY SITE:Right Arm SOURCE:Blood COLLECTED DATE/TIME:03/01/23 6:33 PM PRELIMINARY REPORT No growth at 2 days. Radiology Reports * Exam Date Time Procedure Performing Provider Status 03/01/23 6:[address] Angio Chest Xena Canales; Auth (Verified) Notes: (CT Angio Chest) Reason For Exam: chest pain CT Angio Chest PROCEDURE INFORMATION: Exam: CTA Chest With Contrast Exam date and time: 03/01/2023 6:35 PM Age: 62 years old Clinical indication: Other: Chest pain TECHNIQUE: Imaging protocol: Computed tomographic angiography of the chest with contrast. 3D rendering (Not supervised by radiologist): MIP and/or 3D reconstructed images were created by the technologist. Radiation optimization: All CT scans at this facility at least one of these dose optimization techniques: automated exposure control; mA and/or kV adjustment per patient size (includes targeted exams where dose is matched to clinical indication); or iterative reconstruction. Contrast material: [id number]; Contrast volume: 100 ml; Contrast route: INTRAVENOUS (IV); REPORTING DATA: Count of CT and Cardiac NM exams in prior 12 months: This patient has received 5 known CTs and 0 known cardiac nuclear medicine studies in the 12 months prior to the current study. COMPARISON: CT ANGIO CHEST 01/18/2023 10:23 AM FINDINGS: Pulmonary arteries: The pulmonary arteries are normal in caliber. No evidence of acute pulmonary embolism. Aorta: The aorta is normal without evidence of aneurysmal dilatation, dissection or occlusive disease. Lungs: Severe centrilobular emphysematous changes are present. There is 3.4 x 2.4 x 3.4 no upshot an measurement present is pretty darn discussed with the with the good free air utilizing clean where and mid cm mass present within the apex of the right lung consistent with patient's known history of pulmonary neoplasm. This shows increased size compared to the prior study where it measured 3 x 2.1 x 3.4 cm. There is dense consolidation and collapse of the left lower lobe of the lung posterior basilar segment likely secondary to endobronchial lesion or occlusion unchanged compared to the prior study of 01/18/2023. There is no evidence of focal pulmonary consolidation. No evidence of pulmonary parenchymal inflammatory changes. There is no evidence of pulmonary masses. Pleural spaces: There is no evidence of pneumothorax. There are no pleural effusions present. Heart: The cardiac structures are normal. The right ventricular to left ventricular ratio is normal measuring approximately 0.9. No evidence of reflux of contrast into the inferior vena cava or hepatic veins to suggest right heart strain or pulmonary hypertension. Coronary arteries: There is mild atherosclerotic calcification of the coronary arteries. Lymph nodes: There is no evidence of lymphadenopathy. Bones/joints: The spine, sternum, ribs, and pectoral girdles show no evidence of acute abnormality. Soft tissues: There are no soft tissue masses or fluid collections. The upper abdominal viscera are unremarkable. Other findings: The mediastinal structures are normal. IMPRESSION: 1. No evidence of acute pulmonary embolism. 2. Slight increase in the size of the patient's right upper lobe pulmonary mass. 3. Severe centrilobular emphysematous changes. 4. Chronic left lower lobe collapse likely secondary to endobronchial lesion or bronchial occlusive compression. COMMENTS: In the absence of a history or active diagnosis of lung cancer, it is recommended that this patient with emphysema be evaluated for enrollment in a low dose CT lung cancer screening program. THIS DOCUMENT HAS BEEN ELECTRONICALLY SIGNED BY PRAKASH SORTO MD on 03/01/2023 07:37 PM Final Signed by: Prakash Sorto MD Signed (Electronic Signature): 03/01/2023 7:37 pm Vital Signs Most recent to oldest [Reference Range]: 1 2 3 Temperature Oral [35.8-37.3 Deg C] 36.4 Deg C (03/03/23 7:47 PM) 36.5 Deg C (03/03/23 3:51 AM) 36.4 Deg C (03/02/23 11:46 PM) Temperature Oral (DegF) [96.4-99.1 Deg F] 97.52 Deg F (03/03/23 7:47 PM) 97.7 Deg F (03/03/23 3:51 AM) 97.52 Deg F (03/02/23 11:46 PM) Temperature Tympanic [36.6-37.9 Deg C] 36.3 Deg C *LOW* (03/01/23 4:49 PM) Temperature Temporal Artery [36-38 Deg C] 36.5 Deg C (03/05/23 7:14 AM) 37.3 Deg C (03/04/23 7:24 PM) 37.1 Deg C (03/04/23 7:16 PM) Temperature Temporal Artery (DegF) [97.3-100 Deg F] 98.78 Deg F (03/04/23 7:16 PM) 98.24 Deg F (03/03/23 1:29 PM) 96.98 Deg F *LOW* (03/03/23 7:53 AM) Peripheral Pulse Rate [60-100 bpm] 81 bpm (03/05/23 7:14 AM) 96 bpm (03/04/23 7:24 PM) 102 bpm *HI* (03/04/23 7:16 PM) Heart Rate Monitored [60-100 bpm] 94 bpm (03/02/23 11:47 AM) 92 bpm (03/01/23 9:33 PM) 96 bpm (03/01/23 8:07 PM) Respiratory Rate [12-24 br/min] 22 br/min (03/05/23 7:14 AM) 22 br/min (03/04/23 7:24 PM) 22 br/min (03/04/23 7:16 PM) Blood Pressure [90-140/60-90 mmHg] 139/93mmHg (03/05/23 7:14 AM) 133/83mmHg (03/04/23 7:24 PM) 142/93mmHg *HI* (03/04/23 7:16 PM) Mean Arterial Pressure, Cuff [65-140 mmHg] 100 mmHg (03/04/23 7:24 PM) 109 mmHg (03/04/23 7:16 PM) 110 mmHg (03/04/23 6:48 PM) Mean Arterial Pressure Cuff 92 mmHg (03/01/23 9:33 PM) 87 mmHg (03/01/23 8:07 PM) 107 mmHg (03/01/23 7:34 PM) Blood Pressure Location Left arm (03/04/23 7:16 PM) Left arm (03/04/23 4:27 AM) Left arm (03/03/23 7:47 PM) Blood Pressure Method Automatic (03/04/23 7:16 PM) Automatic (03/04/23 4:27 AM) Automatic (03/03/23 7:47 PM) Weight 57.000 kg (03/01/23 10:59 PM) 57.000 kg (03/01/23 10:26 PM) 57.00 kg (03/01/23 4:49 PM) Weight Dosing 57.000 kg (03/01/23 10:26 PM) 57.00 kg (03/01/23 5:27 PM) Height 182.880 cm (03/01/23 10:26 PM) 182.880 cm (03/01/23 4:49 PM) Height/Length Dosing 182.880 cm (03/01/23 10:26 PM) 182.880 cm (03/01/23 5:27 PM) Body Mass Index 17.040 kg/m2 (03/01/23 10:26 PM) 17.000 kg/m2 (03/01/23 4:49 PM) Social History Social History Type Response Tobacco Former tobacco user Tobacco Use:. Sex Hospital Discharge Instructions Patient Education 03/05/2023 09:56:02 Chronic Obstructive Pulmonary Disease Exacerbation, [id number] Chronic Obstructive Pulmonary Disease Exacerbation Chronic obstructive pulmonary disease (COPD) is a long-term (chronic) lung problem. In COPD, the flow of air from the lungs is limited. COPD exacerbations are times that breathing gets worse and you need more than your normal treatment. Without treatment, they can be life-threatening. If they happen often, your lungs can become more damaged. What are the causes? Having infections that affect your airways and lungs. ??? Being exposed to: ??? Smoke. ??? Air pollution. ??? Chemical fumes. ??? Dust. ??? Things that can cause an allergic reaction (allergens). ??? Not taking your usual COPD medicines as told. ??? Having medical problems already, such as heart failure or infections not involving the lungs. In many cases, the cause is not known. What increases the risk? Smoking. ??? Being an older adult. ??? Having frequent prior COPD exacerbations. What are the signs or symptoms? Increased coughing. ??? Increased mucus from your lungs. ??? Increased wheezing. ??? Increased shortness of breath. ??? Fast breathing and finding it hard to breathe. ??? Chest tightness. ??? Less energy than usual. ??? Sleep disruption from symptoms. ??? Confusion. ??? Increased sleepiness. Often, these symptoms happen or get worse even with the use of medicines. How is this treated? Treatment for this condition depends on how bad it is and the cause of the symptoms. You may need to stay in the hospital for treatment. Treatment may include: ??? Taking medicines. ??? Using oxygen. ??? Being treated with different ways to clear your airway, such as using a mask to deliver oxygen. Follow these instructions at home: Medicines ??? Take vdmf-nzl-bvksyqv and prescription medicines only as told by your doctor. ??? Use all inhaled medicines the correct way. ??? If you were prescribed an antibiotic or steroid medicine, take it as told by your doctor. Do not stop taking it even if you start to feel better. Lifestyle ??? Do not smoke or use any products that contain nicotine or tobacco. If you need help quitting, ask your doctor. ??? Eat healthy foods. ??? Exercise regularly. ??? Get enough sleep. Most adults need 7 or more hours per night. ??? Avoid tobacco smoke and other things that can bother your lungs. ??? Several times a day, wash your hands with soap and water for at least 20 seconds. If you cannotuse soap and water, use hand flexible babysitter. This may help keep you from getting an infection. ??? During flu season, avoid areas that are crowded with people. General instructions ??? Drink enough fluid to keep your pee (urine) pale yellow. Do not do this if your doctor has toldyou not to. ??? Use a cool mist machine (vaporizer). ??? If you use oxygen or a machine that turns medicine into a mist (nebulizer), continue to use it as told. ??? Keep all follow-up visits. How is this prevented? Keep up with shots (vaccinations) as told by your doctor. Be sure to get a yearly flu (influenza) shot. ??? If you smoke, quit smoking. Smoking makes the problem worse. ??? Follow all instructions for rehabilitation. These are steps you can take to make your body workbetter. ??? Work with your doctor to develop and follow an action plan. This tells you what steps to take when you experience certain symptoms. Contact a doctor if: ??? Your COPD symptoms get worse than normal. Get help right away if: ??? You are short of breath and it gets worse, even when you are resting. ??? You have trouble talking. ??? You have chest pain. ??? You cough up blood. ??? You have a fever. ??? You keep vomiting. ??? You feel weak or you pass out (faint). ??? You feel confused. ??? You are not able to sleep because of your symptoms. ??? You have trouble doing daily activities. These symptoms may be an emergency. Get help right away. Call your local emergency services (911 int [place] ??? Do not wait to see if the symptoms will go away. ??? Do not drive yourself to the hospital. Summary ??? COPD exacerbations are times that breathing gets worse and you need more treatment than normal. ??? COPD exacerbations can be very serious and may cause your lungs to become more damaged. ??? Do not smoke. If you need help quitting, ask your doctor. ??? Stay up to date on your shots. Get a flu shot every year. This information is not intended to replace advice given to you by your health care provider. Make sure you discuss any questions you have with your health care provider. Document Revised: 08/22/2021 Document Reviewed: 08/07/2021 [employer] Patient Education ?? 2021 [employer]. Follow Up Care 03/01/2023 16:49:40 With:PRAKASH ALLRED APRN Address: [address] [place] [phone] When:1 to 2 weeks Comments:. March 13. at 10am with Desmond Souza Discharge instructions * Jelly Rodriguez: PERFORM Event Display: Discharge Instructions Authored Date: [id number] YANICK MARC :1960 Age:62 years Sex:Male Visit Date:03/01/2023 Primary Care Physician: PRAKASH ALLRED APRN Hospital Discharge Instructions We would like to thank you for allowing us to assist you with your healthcare needs. The following includes patient education materials and information regarding your injury/illness. Your Next Steps Follow Up Appointments Follow Up with??PRAKASH ALLRED APRN When:??Within 1 to 2 weeks Why: . March 13. at 10am with Desmond Garciasdon Where: [address] [place] [address]- The Following Equipment Has Been Ordered for You Home Equipment - Cane, Oxygen Comments entered by Viji Ponce - pt has home oxygen through [employer]are 3-4 liters cont. Medications What How Much When Why Instructions Next Dose New linezolid (linezolid 600 mg oral tablet) 1 tab Oral (given by mouth) Every 12 hours Duration: 11 Days Pickup at [facility] New predniSONE (predniSONE 20 mg oral tablet) 2 tab Oral (given by mouth) Every day Duration: 1 Days Pickup at [facility] Changed albuterol (Albuterol (Eqv-Ventolin HFA) 90 mcg/ inh inhalation aerosol) 2 Puffs Inhale (breathe in) Every 4 hours as needed for as needed for wheezing Changed azelastine nasal (azelastine 137 mcg/ inh (0.1%) nasal spray) 2 Sprays Nasal (into the nose) 2 times a day as needed for as needed for allergy symptoms Changed baclofen (baclofen 20 mg oral tablet) 1 tab Oral (given by mouth) 2 times a day as needed for other (see comment) NEEDED FOR NECK PAIN ?? Changed budesonide-formoterol (Symbicort 160 mcg-4.5 mcg/ inh inhalation aerosol) 2 Puffs Inhale (breathe in) 2 times a day Changed folic acid (folic acid 1 mg oral tablet) 1 tab Oral (given by mouth) Every morning Changed ipratropium-albuterol (ipratropium-albuterol 0.5 mg-2.5 mg/ 3 mL inhalation solution) 3 Milliliters Nebulized inhalation (inhale using nebulizer) Every 4 hours as needed for as needed for shortness of breath or wheezing Changed levothyroxine (levothyroxine 100 mcg (0.1 mg) oral tablet) 1 tab Oral (given by mouth) Every morning Changed magnesium oxide (magnesium oxide 400 mg (241.3 mg elemental magnesium) oral tablet) 1 tab Oral (given by mouth) Every morning Changed montelukast (montelukast 10 mg oral tablet) 1 tab Oral (given by mouth) Every morning Changed omeprazole (omeprazole 40 mg oral delayed release capsule) 1 Capsules Oral (given by mouth) Every morning Changed ondansetron (ondansetron 4 mg oral tablet) 1 tab Oral (given by mouth) Every 8 hours as needed for nausea/vomiting Changed polyethylene glycol 3350 ([id number] oral powder for reconstitution) 17 Gram Oral (given by mouth) Every day as needed for constipation Changed thiamine (thiamine 250 mg oral tablet) 1 tab Oral (given by mouth) Every day Unchanged ascorbic acid (Vitamin C 500 mg oral tablet, chewable) 1 tab Chewed Every day Unchanged aspirin (aspirin 81 mg oral tablet, chewable) 1 tab Chewed Every day Unchanged cetirizine (cetirizine 10 mg oral tablet) 1 tab Oral (given by mouth) Every day as needed for as needed for allergy symptoms 1 Unknown ?? Unchanged cholecalciferol (Vitamin D3 125 mcg (5000 intl units) oral tablet, disintegrating) 1 tab Oral (given by mouth) Every day Unchanged cyanocobalamin (Vitamin B12 1000 mcg oral tablet) 1 tab Oral (given by mouth) Every day Unchanged multivitamin (multivitamin adult, oral tablet) 1 tab Oral (given by mouth) Every day Unchanged nystatin (nystatin 100,000 units/ mL oral suspension) 5 Milliliters Oral (given by mouth) 4 times a day COPD exacerbation Left lower lobe pneumonia Hyponatremia Lung mass Unchanged pyridoxine (Vitamin B6 100 mg oral tablet) 1 tab Oral (given by mouth) Every day Unchanged zinc gluconate (zinc (as gluconate) 50 mg oral tablet) 0.5 tab Oral (given by mouth) Every other day Unchanged zolpidem (zolpidem 10 mg oral tablet) 1 tab Oral (given by mouth) Every night at bedtime as needed for as needed for insomnia Pharmacy Information [facility]: [address] [place] [address] [phone] Your Summary Your Care Team Admitting Physician - Aileen Nielsen APRN Attending Physician - Lisset Slater MD Primary Care Physician - PRAKASH ALLRED APRN Your Diagnosis COPD with exacerbation Pneumonia Neuro-endocrine carcinoma Oral thrush Hyponatremia GERD without esophagitis Alcohol abuse Prediabetes Leukocytosis Problems Ongoing - Any problem that you are currently receiving treatment for. Acquired hypothyroidism Alcohol abuse Altered mental status COPD (chronic obstructive pulmonary disease) External ear conductive hearing loss Fibromyalgia GERD without esophagitis Impacted cerumen Incontinence of urine Lumbar degenerative disc disease Otorrhea Prediabetes Primary hypomagnesemia RLS (restless legs syndrome) Syncope and collapse Tonsil carcinoma Tests Performed/Pending .Manual Differential (LTTL) Automated Diff Blood Culture?-- Results Pending -- BMP CBC w/ Diff CBC w/ Manual Diff CMP Hemoglobin A1C Legionella Antigen Urine Procalcitonin PT/ INR Respiratory Panel 2.1 ([employer]) Streptococcus Pneumoniae Antigen Urine Troponin-I TSH w/ Rflx to Free T4 Vancomycin Level Trough White Blood Cell Count CT Angio Chest Discharge Vitals Temperature??(Temporal Artery) 97.7 ??F (36.5 ??C) Heart Rate??(Peripheral) 81 Respiratory Rate?? 22 Blood Pressure?? 139/93?? Allergies Duragesic-12??(Unknown) codeine??(Hives, itchy, SOB) morphine??(Unknown) varenicline??(confusion, disorientation) Education Materials Chronic Obstructive Pulmonary Disease Exacerbation Chronic obstructive pulmonary disease (COPD) is a long-term (chronic) lung problem. In COPD, the flow of air from the lungs is limited. COPD exacerbations are times that breathing gets worse and you need more than your normal treatment. Without treatment, they can be life-threatening. If they happen often, your lungs can become more damaged. What are the causes? Having infections that affect your airways and lungs. ? Being exposed to: ? Smoke. ? Air pollution. ? Chemical fumes. ? Dust. ? Things that can cause an allergic reaction (allergens). ? Not taking your usual COPD medicines as told. ? Having medical problems already, such as heart failure or infections not involving the lungs. In many cases, the cause is not known. What increases the risk? Smoking. ? Being an older adult. ? Having frequent prior COPD exacerbations. What are the signs or symptoms? Increased coughing. ? Increased mucus from your lungs. ? Increased wheezing. ? Increased shortness of breath. ? Fast breathing and finding it hard to breathe. ? Chest tightness. ? Less energy than usual. ? Sleep disruption from symptoms. ? Confusion. ? Increased sleepiness. Often, these symptoms happen or get worse even with the use of medicines. How is this treated? Treatment for this condition depends on how bad it is and the cause of the symptoms. You may need to stay in the hospital for treatment. Treatment may include: ? Taking medicines. ? Using oxygen. ? Being treated with different ways to clear your airway, such as using a mask to deliver oxygen. Follow these instructions at home: Medicines ? Take lyih-ijw-ujmnnyp and prescription medicines only as told by your doctor. ? Use all inhaled medicines the correct way. ? If you were prescribed an antibiotic or steroid medicine, take it as told by your doctor. Do not stop taking it even if you start to feel better. Lifestyle ? Do not smoke or use any products that contain nicotine or tobacco. If you need help quitting, ask your doctor. ? Eat healthy foods. ? Exercise regularly. ? Get enough sleep. Most adults need 7 or more hours per night. ? Avoid tobacco smoke and other things that can bother your lungs. ? Several times a day, wash your hands with soap and water for at least 20 seconds. If you cannot usesoap and water, use hand flexible babysitter. This may help keep you from getting an infection. ? During flu season, avoid areas that are crowded with people. General instructions ? Drink enough fluid to keep your pee (urine) pale yellow. Do not do this if your doctor has told younot to. ? Use a cool mist machine (vaporizer). ? If you use oxygen or a machine that turns medicine into a mist (nebulizer), continue to use it as told. ? Keep all follow-up visits. How is this prevented? Keep up with shots (vaccinations) as told by your doctor. Be sure to get a yearly flu (influenza) shot. ? If you smoke, quit smoking. Smoking makes the problem worse. ? Follow all instructions for rehabilitation. These are steps you can take to make your body work better. ? Work with your doctor to develop and follow an action plan. This tells you what steps to take when you experience certain symptoms. Contact a doctor if: ? Your COPD symptoms get worse than normal. Get help right away if: ? You are short of breath and it gets worse, even when you are resting. ? You have trouble talking. ? You have chest pain. ? You cough up blood. ? You have a fever. ? You keep vomiting. ? You feel weak or you pass out (faint). ? You feel confused. ? You are not able to sleep because of your symptoms. ? You have trouble doing daily activities. These symptoms may be an emergency. Get help right away. Call your local emergency services (911 int [place] ? Do not wait to see if the symptoms will go away. ? Do not drive yourself to the hospital. Summary ? COPD exacerbations are times that breathing gets worse and you need more treatment than normal. ? COPD exacerbations can be very serious and may cause your lungs to become more damaged. ? Do not smoke. If you need help quitting, ask your doctor. ? Stay up to date on your shots. Get a flu shot every year. This information is not intended to replace advice given to you by your health care provider. Make sure you discuss any questions you have with your health care provider. Document Revised: 08/22/2021 Document Reviewed: 08/07/2021 [employer] Patient Education ?? 2021 [employer] Medication Information prednisone?? (PRED mechelle clarke) ?? Greta?What is the most important information I should know about prednisone?You should not use prednisone if you have a fungal infection anywhere in your body. ?You should not stop using prednisone suddenly.?Follow your doctor's instructions about tapering your dose. ?What is prednisone?Prednisone is a steroid that reduces inflammation in the body, and also suppresses your immune system. ?Prednisone is used to treat many different conditions such as hormonal disorders, skin diseases, arthritis, lupus, psoriasis, allergic conditions, ulcerative colitis, Crohn's disease, eye diseases, lung diseases, asthma, tuberculosis, blood cell disorders, kidney disorders, leukemia, lymphoma, m ultiple sclerosis, organ transplant rejection, swelling from a brain tumor or injury. ?Prednisone may also be used for purposes not listed in this medication guide. ?What should I discuss with my healthcare provider before taking prednisone?You should not use prednisone if you are allergic to it, or if you have a fungal infection anywhere in your body. ?Steroid medication can weaken your immune system, making it easier for you to get an infection??or worsening an infection you already have. ??Tell your doctor about any illness or infection you've had within the past several weeks. ?Tell your doctor if you have ever had: ?heart problems, high blood pressure, or a heart attack; ?glaucoma or cataracts; ?herpes infection of the eyes; ?past or present tuberculosis; ?a parasite infection that causes diarrhea (such as threadworms); ?any illness that causes diarrhea; ?underactive thyroid; ?diabetes; ?a stomach ulcer, diverticulitis; ?a colostomy or ileostomy; ?osteoporosis or low bone mineral density (steroid medication can increase your risk of boneloss); ?low levels of calcium or potassium in your blood; ?cirrhosis or other liver disease; ?mental illness or psychosis; or ?a muscle disorder such as myasthenia gravis. ?Long-term use of steroids may lead to bone loss (osteoporosis), especially if you smoke or drink alcohol, if you do not exercise, or if you do not get enough vitamin D or calcium in your diet.?It is not known whether this medicine will harm an unborn baby. Tell your doctor if you are or plan to become . ?You should not breastfeed while using prednisone. ?How should I take prednisone?Follow all directions on your prescription label and read all medication guides or instruction sheets. ??Your doctor may occasionally change your dose. ??Use the medicine exactly as directed. ?Prednisone is taken daily or every other day, depending on the condition being treated. ??You may need to take the medicine at a certain time of day. ??Follow your doctor's instructions about when and how often to take this medicine.?Take with food if prednisone upsets your stomach. ?Measure??liquid medicine??carefully. Use the dosing syringe provided, or use a medicine dose-measuring device (not a kitchen spoon). ?Swallow the??delayed-release tablet??whole and do not crush, chew, or break it. ?Prednisone can weaken (suppress) your immune system, and you may get an infection more easily. Call your doctor if you have signs of infection (fever, weakness, cold or flu symptoms, skin sores, diarrhea, frequent or recurring illness). ?If you have major surgery or a severe injury or infection, your prednisone dose needs may change. ??Make sure any doctor caring for you knows you are using this medicine. ?If you use this medicine long-term, you may need medical tests and vision exams. ?In case of emergency, wear or carry medical identification to let others know you use a steroid. ?You should not stop using prednisone suddenly.?Follow your doctor's instructions about tapering your dose. ?Store at room temperature away from moisture, heat, and light. ?What happens if I miss a dose?Take the medicine as soon as you can, but skip the missed dose if it is almost time for your next dose.??Do not??take two doses at one time.?What happens if I overdose?Seek emergency medical attention or call the Poison Help line at . ?High doses or long-term use of prednisone??can lead to thinning skin, easy bruising, changes inbody fat (especially in your face, neck, back, and waist), increased acne or facial hair, menstrualproblems, impotence, or loss of interest in sex. ?What should I avoid while taking prednisone?Do not receive a 'live' vaccine while using prednisone.?The vaccine may not work as well andmay not fully protect you from disease. ??Live vaccines include measles, mumps, rubella (MMR), polio, rotavirus, typhoid, yellow fever, varicella (chickenpox), zoster (shingles), and nasal flu (influenza) vaccine. ?Avoid being near people who are sick or have infections. ??Call your doctor for preventive treatment if you are exposed to chickenpox or measles. ??These conditions can be serious or even fatal in people who are using steroid medicine. ?Avoid drinking alcohol. ?What are the possible side effects of prednisone?Get emergency medical help if you have??signs of an allergic reaction: ??hives; difficult breathing; swelling of your face, lips, tongue, or throat. ?Call your doctor at once if you have: ?muscle pain or weakness; ?blurred vision, tunnel vision, eye pain, or seeing halos around lights; ?severe depression, changes in personality, unusual thoughts or behavior;?bloody or tarry stools, coughing up blood or vomit that looks like coffee grounds; ?swelling, rapid weight gain, feeling short of breath; ?irregular heartbeats; ?severe headache, pounding in your neck or ears; ?decreased adrenal gland hormones--muscle weakness, tiredness, diarrhea, nausea, menstrual changes, skin discoloration, craving salty foods, and feeling light-headed; or ?low potassium level--leg cramps, constipation, irregular heartbeats, fluttering in your chest, increased thirst or urination, numbness or tingling, muscle weakness or limp feeling. ?Prednisone can affect growth in children. ??Tell your doctor if your child is not growing at a normal rate while using this medicine. ?Common side effects may include: ?weight gain (especially in your face or your upper back and torso);?increased appetite; ?mood changes, trouble sleeping; ?changes in your menstrual periods; ?problems with memory or thought; ?muscle or joint pain; ?weakness; ?headache, dizziness, spinning sensation; ?nausea, bloating, loss of appetite;?slow wound healing; or ?acne, increased sweating, thinning skin, bruising, pinpoint spots under your skin. ?This is not a complete list of side effects and others may occur. Call your doctor for medical advice about side effects. You may report side effects to FDA at 9-570-IZE-1169. ?What other drugs will affect prednisone?Sometimes it is not safe to use certain medications at the same time.?Some drugs can affect your blood levels of other drugs you take, which may increase side effects or make the medications less effective. ?Tell your doctor about all your current medicines.?Many drugs can affect prednisone, especially: ?bupropion; ?cyclosporine; ?digoxin; ?ketoconazole; ?an antibiotic; ? control pills or hormone replacement therapy; ?a diuretic or 'water pill'; ?insulin or oral diabetes medicine; ?a blood thinner--warfarin, Coumadin, Jantoven; or ?NSAIDs (nonsteroidal anti-inflammatory drugs)--aspirin, ibuprofen (Advil, Motrin), naproxen(Aleve), celecoxib, diclofenac, indomethacin, meloxicam, and others. ?This list is not complete and many other drugs may affect prednisone.??This includes prescription and zcec-nsf-vayfgqs medicines, vitamins, and herbal products. Not all possible drug interactionsare listed here. ?Where can I get more information?Your pharmacist can provide more information about prednisone. ?Remember, keep this and all other medicines out of the reach of children, never share your medicines with others, and use this medication only for the indication prescribed. ?Every effort has been made to ensure that the information provided by [employer]. ('[employer]') is accurate, up-to-date, and complete, but no guarantee is made to that effect. Drug information contained herein may be time sensitive. [employer] information has been compiled for use by healthcare practitioners and consumers in the [place] and therefore [employer] does not warrant that uses outside of the [place] are appropriate, unless specifically indicated otherwise. [employer] drug information does not endorse drugs, diagnose patients or recommend therapy. [employer] drug information is an informational resource designed to assist licensed healthcare practitioners in caring for their patients and/or to serve consumers viewing this service as a supplement to, and not a substitutefor, the expertise, skill, knowledge and judgment of healthcare practitioners. The absence of a warning for a given drug or drug combination in no way should be construed to indicate that the drug ordrug combination is safe, effective or appropriate for any given patient. [employer] does not assume any responsibility for any aspect of healthcare administered with the aid of information [employer] provides. The information contained herein is not intended to cover all possible uses, directions, precautions, warnings, drug interactions, allergic reactions, or adverse effects. If you have questions about the drugs you are taking, check with your doctor, nurse or pharmacist.? Copyright 7432-8407 [employer]. Version: 10. Revision Date: 01/07/2019. ?? linezolid (oral/injection)?? (yamileth EZ oh lid) ?? Zyvox?What is the most important information I should know about linezolid?Some medicines can cause unwanted or dangerous effects when used with linezolid.?Tell your doctor about all other medicines you use. ?Do not use this medicine if you have used an MAO inhibitor in the past 14 days,??such as isocarboxazid, linezolid, methylene blue injection, phenelzine, or tranylcypromine. ?What is linezolid?Linezolid is an antibiotic that fights bacteria in the body. Linezolid is also an MAO (monoamine oxidase) inhibitor.?Linezolid is used to treat different types of bacterial infections, such as pneumonia, skin infections, and infections that are resistant to other antibiotics. ?Linezolid may also be used for purposes not listed in this medication guide. ?What should I discuss with my healthcare provider before using linezolid?You should not use linezolid if you are allergic to it. ?Do not use linezolid if you have used an MAO inhibitor in the past 14 days.??A dangerous drug interaction could occur. MAO inhibitors include isocarboxazid, linezolid, methylene blue injection, phenelzine, tranylcypromine, and others. ?Tell your doctor if you also take stimulant medicine, opioid medicine, herbal products, or medicine for depression, mental illness, Parkinson's disease, migraine headaches, serious infections, orprevention of nausea and vomiting.??An interaction with linezolid could cause a serious condition called serotonin syndrome. ?Tell your doctor if you have ever had: ?high blood pressure; ?a thyroid disorder; ?a carcinoid tumor; ?bone marrow suppression or a weak immune system; ?kidney or liver disease; ?pheochromocytoma (adrenal gland tumor);?diabetes; ?seizures; or ?if you use a catheter. ?Tell your doctor if you are or . ?If you are , tell your doctor if you notice diarrhea or vomiting in the nursing baby. ?Linezolid??liquid??may contain phenylalanine and could be harmful if you have phenylketonuria (PKU). ?How is linezolid used?Follow all directions on your prescription label and read all medication guides or instruction sheets. Use the medicine exactly as directed. ?Linezolid??oral??is taken by mouth. ?Linezolid??tablets??or??liquid??can be taken with or without food. ?Gently mix the??oral suspension??(liquid) by turning the bottle upside down 3 to 5 times.??Do not shake.??Measure a dose with the supplied syringe or a dose-measuring device (not a kitchen spoon). ?Linezolid??injection??is given in a vein. ?Read and follow all Instructions for Use.??Ask your doctor or pharmacist if you need help. ?Prepare an injection only when you are ready to give it.??Call your pharmacist if the medicine has particles in it. ?Do not reuse a needle or syringe. Place them in a puncture-proof 'sharps' container and disposeof it following state or local laws. Keep out of the reach of children and pets. ?You will need frequent medical tests. Your vision and blood pressure may also need to be checked often. ?Keep using this medicine even if your symptoms quickly improve. Skipping doses could make your infection resistant to medication. Linezolid will not treat a viral infection (flu or a common cold). ?Store all forms of linezolid at room temperature away from moisture, heat, and light. Do not freeze. Throw away any??liquid??not used within 21 days. ?What happens if I miss a dose?Use the medicine as soon as you can, but skip the missed dose if it is almost time for your next dose.??Do not??use two doses at one time. ?What happens if I overdose?Seek emergency medical attention or call the Poison Help line at .?What should I avoid while using linezolid?Avoid taking anti-diarrhea medicine without first asking your doctor.??Diarrhea may be a sign of a new infection. ?Eating tyramine while you are using linezolid can raise your blood pressure to dangerous levels.?Avoid foods that have a high level of tyramine, such as: ?aged cheeses or meats; ?pickled or fermented meats, smoked or air-dried meats; ?sauerkraut; ?soy sauce; ?tap beer (alcoholic and nonalcoholic); ?red wine; or ?any meat, cheese, or other protein-based food that has been improperly stored. ?You should be very familiar with the list of foods you must avoid while you are using linezolid. ?What are the possible side effects of linezolid?Get emergency medical help if you have??signs of an allergic reaction??(hives, difficult breathing, swelling in your face or throat)??or a severe skin reaction??(fever, sore throat, burning eyes,skin pain, red or purple skin rash with blistering and peeling). ?Call your doctor at once if you have: ?vision problems, changes in color vision; ?severe stomach pain, diarrhea that is watery or bloody; ?a seizure; ?sweating, feeling anxious or shaky (may be signs of low blood sugar); ?lactic acidosis--unusual muscle pain, trouble breathing, stomach pain, vomiting, irregular heart rate, dizziness, feeling cold, or feeling very weak or tired; or ?low blood cell counts--fever, chills, tiredness, weakness, confusion, mouth sores, skin sores, easy bruising, unusual bleeding, pale skin, cold hands and feet, feeling light-headed or short of breath. ?Seek medical attention right away if you have symptoms of serotonin syndrome, such as:?agitation, hallucinations, fever, sweating, shivering, fast heart rate, muscle stiffness, twitching, lossof coordination, nausea, vomiting, or diarrhea. ?Common side effects may include: ?nausea, vomiting, diarrhea; ?rash; ?anemia (low red blood cells); or ?headache, dizziness. ?This is not a complete list of side effects and others may occur. Call your doctor for medical advice about side effects. You may report side effects to FDA at 1-261-ZSG-5409. ?What other drugs will affect linezolid?Many drugs can affect linezolid, and some drugs should not be used at the same time.??Tell yourdoctor about all other medicines you use. This includes prescription and xabi-bjl-[id number] medicines, vitamins, and herbal products.??Not all possible interactions are listed here. ?Where can I get more information?Your pharmacist can provide more information about linezolid. ?Remember, keep this and all other medicines out of the reach of children, never share your medicines with others, and use this medication only for the indication prescribed. ?Every effort has been made to ensure that the information provided by [employer]. [employer]') is accurate, up-to-date, and complete, but no guarantee is made to that effect. Drug information contained herein may be time sensitive. [employer] information has been compiled for use by healthcare practitioners and consumers in the [place] and therefore [employer] does not warrant that uses outside of the [place] are appropriate, unless specifically indicated otherwise. [facility]'s drug information does not endorse drugs, diagnose patients or recommend therapy. [facility] drug information is an informational resource designed to assist licensed healthcare practitioners in caring for their patients and/or to serve consumers viewing this service as a supplement to, and not a substitutefor, the expertise, skill, knowledge and judgment of healthcare practitioners. The absence of a warning for a given drug or drug combination in no way should be construed to indicate that the drug ordrug combination is safe, effective or appropriate for any given patient. [facility] does not assume any responsibility for any aspect of healthcare administered with the aid of information [facility] provides. The information contained herein is not intended to cover all possible uses, directions, precautions, warnings, drug interactions, allergic reactions, or adverse effects. If you have questions about the drugs you are taking, check with your doctor, nurse or pharmacist.? Copyright [employer] [employer]. Version: 08.14. Revision Date: 03/26/2021. ? Patient Name:YANICK MARC I have received this information and my questions have been answered. Patient/Bar Tender Name: Patient/Bar Tender Signature: Relationship to Patient: Witness Name/Signature: Date: Electronically Signed on: 03/05/2023 11:10 EDTSigned by:SW * Event Display: Discharge Instructions Respiratory therapy Hospital Progress note * Erica Le: PERFORM Event Display: Respiratory Therapy Progress Note Authored Date: [id number] Wilson concerning the NS neb and the Chest Percussion Therapy (CPT). Advised him theanother RT that has had the patient for 2 days states the CPT is not helping move any secretions and that it is not a good idea to nebulize normal saline due to the increased risk of entering bacteria into the lungs and causing inflammation due to the higher sodium content. He is agreeable to cancelling the two orders. Cosign request sent to Dr. Wilson for the above to be cancelled. Electronically Signed on 03/04/23 09:03 AM Erica Le Physician Emergency department Note * Bruno Mcguire MD: PERFORM Event Display: ED Note Physician Authored Date: [id number] YANICK MARC :1960 Age:62 years Sex:Male Visit Date:03/01/2023 Primary Care Physician: PRAKASH ALLRED APRN Basic Information Time Seen: Bruno Mcguire MD / 03/01/2023 16:51 Chief Complaint COPD , recent Dx Lung Ca Home O2 use , unable to cathc breath pt states had infection I dont think it clkeared History Of Present Illness: 62-year-old male??who appears decades older than his stated age,??history of COPD, states he stopped smoking 4 years ago,??hospitalization in January??with a??right??upper lobe mass, left pleural effusion,??treated with doxycycline, steroids,??nebulizers?presents with cough,??shortness of breathdyspnea on exertion, losing weight.?? Patient uses home oxygen chronically.?? Of note patient also has complaints of headache; he had a negative??CT with contrast of his head??4 weeks ago. Review of Systems: Review of Systems: Constitutional: [No measured fevers,??questionable chills]. ??Losing weight Eye: [No acute visual complaints] ENT: [Sore throat] Respiratory: [Chronic cough,??shortness of breath] Cardiovascular: [Chest discomfort] Gastrointestinal: [No nausea, vomiting, or diarrhea. No blooding or melena] Genitourinary: [No dysuria or hematuria] Musculoskeletal: [No acute back pain, neck pain, joint pain, muscle pain, decreased range of motion] Integumentary: [No rash, pruritus, abrasions] Neurologic: [No focal sensory or motor complaints. Denies syncope] ?? Physical Exam: General: [Alert and oriented, cachectic no acute distress].?Appears??significantly older than stated age; borderline tachycardia,??pulse ox 92% on oxygen Eye: [PERRL, EOMI, normal conjunctiva]. HENT: [Normocephalic, normal hearing, moist oral mucosa, no scleral icterus, no nasal discharge].?? Neck: [Ranging neck, normal inspection].?? Lungs: [Rhonchorous breath sounds, wheezing, prolonged inspiratory to expiratory ratio].?? Heart: [Tachycardia, regular rhythm, no murmur, gallop or edema]. Abdomen: [Scaphoid, non-tender, non-distended, normal bowel sounds].?? Musculoskeletal: [Normal range of motion and strength, no tenderness or swelling].?? Calf pain or swelling Skin: [Skin is warm, dry and pink,]. Neurologic: [Awake, alert and oriented X4, normal tone, moving all extremities with??fair strength]. Psychiatric: [Cooperative, appropriate mood and affect]. Physical Exam Vitals & Measurements T:??36.3?C ??(Tympanic)?? HR:??96??(Monitored)?? RR:??28?? BP:??113/73?? SpO2:??94%?? HT:??182.880??cm?? WT:??57.00??kg?? BMI:??17.000?? O2 Flow Rate:??3?? O2 Therapy:??Nasal cannula?? Medical Decision Making: CT angio of chest obtained; 1. ?? No evidence of acute pulmonary embolism.?? 2. ?? Slight increase in the size of the patient's right upper lobe pulmonary?? mass.?? 3. ?? Severe centrilobular emphysematous changes.?? 4. ?? Chronic left lower lobe collapse likely secondary to endobronchial lesion?? or bronchial occlusive compression.? White count is markedly elevated at??24,000 with a left shift. ??Platelets elevated at 682. ??Sodium is 126, albumin 3.2, troponin 0.04,??bio fire respiratory panel is completely negative. ??Patient was discharged??weeks ago on doxycycline. ??We will give IV Levaquin, 60 prednisone orally, DuoNeb, speak to hospitalist about admission. ?? Addendum??9 PM::??Seen and evaluated by hospitalist who agrees with admission plan. ?? Dx: Lung cancer, end-stage??COPD, hyponatremia??(? ??SIADH) Procedure No Qualifying Data Assessment/Plan Ordered: Blood Culture, Blood, Arm L, Stat collect, ST - Stat, 03/01/23 17:51:00 EDT, Once, Nurse collect, Print Label Blood Culture, Blood, Arm R, Stat collect, ST - Stat, 03/01/23 17:51:00 EDT, Once, Nurse collect, Print Label Medication Reconciliation Unchanged albuterol (Albuterol (Eqv-Ventolin HFA) 90 mcg/inh inhalation aerosol)2 Puffs Inhale (breathe in) every 6 hours as needed as needed for wheezing. ?? amoxicillin-clavulanate (amoxicillin-clavulanate 875 mg-125 mg oral tablet)1 tab Oral (given by mouth) every 12 hours (scheduled) for 2 Days. ?? aspirin (aspirin 81 mg oral tablet, chewable)1 [...] needed for allergy symptoms. 1 Unknown. ?? folic acid (folic acid [...] Oral (given by mouth) every day. ?? nystatin (nystatin 100,000 units/mL oral suspension)5 Milliliters Oral (given by mouth) 4 times a day. ?? omeprazole (omeprazole 40 mg oral delayed release capsule)1 Capsules Oral (given by mouth) every day. 90 EA, TAKE 1 CAPSULE BY MOUTH ONCE DAILY.. ?? ondansetron (ondansetron 4 mg oral tablet)1 tab Oral (given by mouth) every 8 hours as needed nausea/vomiting. 30 EA, TAKE 1 TABLET BY MOUTH EVERY 8 HOURS NEEDED FOR NAUSEA AND FOR VOMITING. ?? polyethylene glycol 3350 (MiraLax oral powder for reconstitution)17 Gram Oral (given by mouth) every day for 30 Days. Refills: 0. ?? rOPINIRole4 Milligrams Oral (given by mouth) every night at bedtime as needed other (see comment). ?? thiamine (thiamine 100 mg oral tablet)1 [...] tube???Repair of umbilical hernia???Splenectomy Medication Administration Given ipratropium-albuterol 0.5 mg-2.5 mg/3 mL inhalation solution, 3 mL, NEB levoFLOXacin, 750 mg, IV Piggyback predniSONE, 60 mg, Oral Allergies Duragesic-12??(Unknown) codeine??(Hives, itchy, SOB) morphine??(Unknown) varenicline??(confusion, disorientation) Social History Alcohol Current, Several times per day Electronic Cigarette/Vaping Electronic Cigarette Use: Never. Home/Environment Lives with Roomate(s)/Friend(s). Living situation: Home/Independent. Home equipment: Cane. Tobacco Former tobacco user Tobacco Use:. Family History Breast cancer: Mother. Family Member(s): ?? MOTHER, at age: Unknown. Cause of : Family Member(s): ?? FATHER, at age: Unknown. Cause of : Diagnostic Results CT Angio Chest 03/01/2023 19:[address] Angio Chest ?? 03/01/23 18:35:29 PROCEDURE INFORMATION: Exam: CTA Chest With Contrast Exam date and time: 03/01/2023 6:35 PM Age: 62 years old Clinical indication: Other: Chest pain ?? TECHNIQUE: Imaging protocol: Computed tomographic angiography of the chest with contrast. 3D rendering (Not supervised by radiologist): MIP and/or 3D reconstructed images were created by the technologist. Radiation optimization: All CT scans at this facility at least one of these dose optimization techniques: automated exposure control; mA and/or kV adjustment per patient size (includes targeted exams where dose is matched to clinical indication); or iterative reconstruction. Contrast material: [id number]; Contrast volume: 100 ml; Contrast route: INTRAVENOUS (IV); ?? REPORTING DATA: Count of CT and Cardiac NM exams in prior 12 months: This patient has received 5 known CTs and 0 known cardiac nuclear medicine studies in the 12 months prior to the current study. ?? COMPARISON: CT ANGIO CHEST 01/18/2023 10:23 AM ?? FINDINGS: Pulmonary arteries: The pulmonary arteries are normal in caliber. No evidence of acute pulmonary embolism. Aorta: The aorta is normal without evidence of aneurysmal dilatation, dissection or occlusive disease. ?? Lungs: Severe centrilobular emphysematous changes are present. There is 3.4 x 2.4 x 3.4 no upshot an measurement present is pretty darn discussed with the with the good free air utilizing clean where and mid cm mass present within the apex of the right lung consistent with patient???s known history of pulmonary neoplasm. This shows increased size compared to the prior study where it measured 3 x 2.1 x 3.4 cm. There is dense consolidation and collapse of the left lower lobe of the lung posterior basilar segment likely secondary to endobronchial lesion or occlusion unchanged compared to the prior study of 01/18/2023. There is no evidence of focal pulmonary consolidation. No evidence of pulmonary parenchymal inflammatory changes. There is no evidence of pulmonary masses. Pleural spaces: There is no evidence of pneumothorax. There are no pleural effusions present. Heart: The cardiac structures are normal. The right ventricular to left ventricular ratio is normal measuring approximately 0.9. No evidence of reflux of contrast into the inferior vena cava or hepatic veins to suggest right heart strain or pulmonary hypertension. Coronary arteries: There is mild atherosclerotic calcification of the coronary arteries. Lymph nodes: There is no evidence of lymphadenopathy. ?? Bones/joints: The spine, sternum, ribs, and pectoral girdles show no evidence of acute abnormality. Soft tissues: There are no soft tissue masses or fluid collections. The upper abdominal viscera are unremarkable. ?? Other findings: The mediastinal structures are normal. ?? IMPRESSION: 1. No evidence of acute pulmonary embolism. 2. Slight increase in the size of the patient???s right upper lobe pulmonary mass. 3. Severe centrilobular emphysematous changes. 4. Chronic left lower lobe collapse likely secondary to endobronchial lesion or bronchial occlusive compression. ?? COMMENTS: In the absence of a history or active diagnosis of lung cancer, it is recommended that this patient with emphysema be evaluated for enrollment in a low dose CT lung cancer screening program. ? THIS DOCUMENT HAS BEEN ELECTRONICALLY SIGNED BY PRAKASH SORTO MD on 03/01/2023 07:37 PM ?? Signed By: Prakash Sorto MD Lab Results CBC and Differential?? LATEST RESULTS?? HISTORICAL RESULTS?? WBC?? 03/01/23 18:33?? 24.8 ??High?? 01/22/23?? 23.2 ??High?? RBC?? 03/01/23 18:33?? 3.77 ??Low?? 01/22/23?? 3.78 ??Low?? Hgb?? 03/01/23 18:33?? 11.5 ??Low?? 01/22/23?? 11.8 ??Low?? Hct?? 03/01/23 18:33?? 34.6 ??Low?? 01/22/23?? 35.0 ??Low?? MCV?? 03/01/23 18:33?? 91.8?? 01/22/23?? 92.6?? MCH?? 03/01/23 18:33?? 30.5?? 01/22/23?? 31.2 ??High?? MCHC?? 03/01/23 18:33?? 33.2?? 01/22/23?? 33.7?? RDW-CV?? 03/01/23 18:33?? 14.7 ??High?? 01/22/23?? 14.8 ??High?? Platelets?? 03/01/23 18:33?? 682 ??High?? 01/22/23?? 433 ??High?? MPV?? 03/01/23 18:33?? 9.4?? 01/22/23?? 8.9?? Segs Man?? 03/01/23 18:33?? 72?? 01/20/23?? 97?? Lymph Man?? 03/01/23 18:33?? 3.0 ??Low?? 01/20/23?? 0.0 ??Low?? Davis Man?? 03/01/23 18:33?? 9.0?? 01/20/23?? 3.0?? Eos Man?? 03/01/23 18:33?? 0.00?? 01/20/23?? 0.00?? Baso Man?? 03/01/23 18:33?? 0.0?? 01/20/23?? 0.0?? Band Man?? 03/01/23 18:33?? 16?? 01/20/23?? 0?? Abs Neut Man?? 03/01/23 18:33?? 21.8 ??High?? 01/20/23?? 25.8 ??High?? Abs Lymph Man?? 03/01/23 18:33?? 0.7 ??Low?? 01/20/23?? 0.0 ??Low?? Abs Davis Man?? 03/01/23 18:33?? 2.2 ??High?? 01/20/23?? 0.8 ??High?? Abs Eos Man?? 03/01/23 18:33?? 0.0?? 01/20/23?? 0.0?? Abs Baso Man?? 03/01/23 18:33?? 0.0?? 01/20/23?? 0.0?? RBC Morph?? 03/01/23 18:33?? Abnormal Abnormal?? 01/20/23?? Abnormal Abnormal?? Hypochromia?? 03/01/23 18:33?? 2+ Abnormal? Plt Estimation?? 03/01/23 18:33?? Increased Abnormal?? 01/20/23?? Increased Abnormal?? Slide Review?? 03/01/23 18:33?? Man Diff?? 01/20/23?? Man Diff? Coagulation?? LATEST RESULTS?? Prothrombin Time?? 03/01/23 18:33?? 10.7 ??High?? INR?? 03/01/23 18:33?? 1.1? Routine Chemistry?? LATEST RESULTS?? HISTORICAL RESULTS?? Sodium Level?? 03/01/23 18:33?? 126 ??Critical?? 01/20/23?? 129 ??Low?? Potassium Level?? 03/01/23 18:33?? 3.5?? 01/20/23?? 3.5?? Chloride Level?? 03/01/23 18:33?? 85 ??Low?? 01/20/23?? 91 ??Low?? CO2?? 03/01/23 18:33?? 31?? 01/20/23?? 31?? Alk Phos?? 03/01/23 18:33?? 113?? 01/18/23?? 83?? AST?? 03/01/23 18:33?? 21?? 01/18/23?? 16?? ALT?? 03/01/23 18:33?? 10 ??Low?? 01/18/23?? 14 ??Low?? BUN?? 03/01/23 18:33?? 10?? 01/20/23?? 22?? Glucose Level?? 03/01/23 18:33?? 112 ??High?? 01/20/23?? 140 ??High?? Creatinine Level?? 03/01/23 18:33?? 0.72?? 01/20/23?? 0.70?? BUN/Creat Ratio?? 03/01/23 18:33?? 13.9?? 01/20/23?? 31.4 ??High?? Calcium Level?? 03/01/23 18:33?? 10.3?? 01/20/23?? 9.3?? Protein Total?? 03/01/23 18:33?? 7.5?? 01/18/23?? 7.1?? Albumin Level?? 03/01/23 18:33?? 3.2 ??Low?? 01/18/23?? 3.2 ??Low?? Globulin?? 03/01/23 18:33?? 4.3?? 01/18/23?? 3.9?? A/G Ratio?? 03/01/23 18:33?? 0.7?? 01/18/23?? 0.8?? Bilirubin Total?? 03/01/23 18:33?? 0.8?? 01/18/23?? 0.8?? Anion Gap?? 03/01/23 18:33?? 10.0?? 01/20/23?? 7.0?? Osmolality?? 03/01/23 18:33?? 253 ??Low?? 01/20/23?? 265 ??Low?? eGFR CKD-EPI?? 03/01/23 18:33?? 105?? 01/20/23?? 105? Cardiac Isoenzymes?? LATEST RESULTS?? HISTORICAL RESULTS?? Troponin-I?? 03/01/23 18:33?? 0.04?? 01/18/23?? 0.02? Infectious Disease?? LATEST RESULTS?? HISTORICAL RESULTS?? Adenovirus RespP-BFire?? 03/01/23 19:55?? Not Detected?? 01/18/23?? Not Detected?? Bordetella parapertussis RespP-BFire?? 03/01/23 19:55?? Not Detected?? 01/18/23?? Not Detected?? Bordetella pertussis RespP-BFire?? 03/01/23 19:55?? Not Detected?? 01/18/23?? Not Detected?? Chlamydophila pneumoniae RespP-BFire?? 03/01/23 19:55?? Not Detected?? 01/18/23?? Not Detected?? Coronavirus 229E (Not COVID-19) RP-BFire?? 03/01/23 19:55?? Not Detected?? 01/18/23?? Not Detected?? Coronavirus HKU1 (Not COVID-19) RP-BFire?? 03/01/23 19:55?? Not Detected?? 01/18/23?? Not Detected?? Coronavirus NL63 (Not COVID-19) RP-BFire?? 03/01/23 19:55?? Not Detected?? 01/18/23?? Not Detected?? Coronavirus OC43 (Not COVID-19) RP-BFire?? 03/01/23 19:55?? Not Detected?? 01/18/23?? Not Detected?? SARS-CoV-2 (COVID-19) RP-BFire?? 03/01/23 19:55?? Not Detected?? 01/18/23?? Not Detected?? Human Metapneumonovirus RespP-BFire?? 03/01/23 19:55?? Not Detected?? 01/18/23?? Not Detected?? Human Rhinovirus/Enterovirus RespP-BFir?? 03/01/23 19:55?? Not Detected?? 01/18/23?? Not Detected?? Influenza A RespP-BFire?? 03/01/23 19:55?? Not Detected?? 01/18/23?? Not Detected?? Influenza B RespP-BFire?? 03/01/23 19:55?? Not Detected?? 01/18/23?? Not Detected?? Mycomplasma pneumoniae RespP-BFire?? 03/01/23 19:55?? Not Detected?? 01/18/23?? Not Detected?? Parainfluenza Virus 1 RespP-BFire?? 03/01/23 19:55?? Not Detected?? 01/18/23?? Not Detected?? Parainfluenza Virus 2 RespP-BFire?? 03/01/23 19:55?? Not Detected?? 01/18/23?? Not Detected?? Parainfluenza Virus 3 RespP-BFire?? 03/01/23 19:55?? Not Detected?? 01/18/23?? Not Detected?? Parainfluenza Virus 4 RespP-BFire?? 03/01/23 19:55?? Not Detected?? 01/18/23?? Not Detected?? Respiratory Syncytial Virus RespP-BFire?? 03/01/23 19:55?? Not Detected?? 01/18/23?? Not Detected?? Employed in healthcare??? 03/01/23 19:55?? Unknown?? 01/18/23?? No?? Symptomatic as defined by [facility]??? 03/01/23 19:55?? Unknown?? 01/18/23?? No?? Hospitalized due to COVID-19??? 03/01/23 19:55?? Unknown?? 01/18/23?? No?? In ICU??? 03/01/23 19:55?? Unknown?? 01/18/23?? No?? Group care resident??? 03/01/23 19:55?? Unknown?? 01/18/23?? No?? status??? 03/01/23 19:55?? Unknown?? 01/18/23?? Not ? Electronically Signed on 03/01/23 09:05 PM Shayla SLATER, Bruno Orosco Nutrition and dietetics Progress note * Letha Guerra: PERFORM Event Display: Nutrition Note Authored Date: [id number] Assessment and Monitoring ?? Reason for Referral:??nutrition shira score of probable inadeuqate ?? Usual Body Weight: 135-145# reported, stable ~55-58kg since last admission in January Weight Change: ?10#-20#, unclear timeline Skin: intact Edema: n/a Chewing/Swallowing: yes, no teeth and reports throat 'shrinking' ? Nutrition Assessment: 62 yo M admit with increase SOB. PMH significant for COPD, lung cancer, GERD, alcohol abuse and former smoker. Patient known from previous admission. Met with him while??he was eating lunch- soup, protein shake,??and a dessert. Reports he think he's lost weight. Visibly, collar bone is quite visible, cheek/ bucal area sunken. Eyes appear sunken in as well, indicating??muscle and fat losses. He was eating lunch, didn't do a physical??exam but could see??some of his ankles as well and??appears quite thin. Has trouble chewing/swallowing as well.??Tolerates liquids/??soft foods better. Will orderEnsure Enlive TID (350kcal??20g protein). Enc high calorie foods/drinks and condiments as well. Verbalizes understanding. Chronic hyponatremia, Cr low as well. Skin intact. ? Monitor/Evaluation:??weights, pos, skin, labs, GI Nutrition Diagnosis inadequate oral intake r/t increased energy/protein needs as evidenced by Lung CA and radiation, appears fat/muscle loss around buccal, orbital and clavicle. Nutrition Goals POs >75% of meals Skin w/o Nick Labs WNL Promote weight gain toward 135-145# Nutrition Interventions Ensure Enlive Vanilla TID Enc high calorie foods/drinks/condiments Regular diet weights weekly Anthropometrics/Estimated Needs Aqqjuh11.000 kg(Recorded: 03/01/2023 22:59 EDT) Gicizc714.880 cm(Recorded: 03/01/2023 22:26 EDT) Body Mass Index17.040 kg/m2(Recorded: 03/01/2023 22:26 EDT) Estimated Energy Needs: 1710-1995kcal (30-35kcal/kg actual BW) Estimated Fluid Needs: 1710-1995ml (1ml/kcal) Estimated Protein Needs: 68-86g (1.2-1.5g/kg actual BW) Reason for Visit increase short of breath Problem List/Past Medical History Ongoing Acquired hypothyroidism [...] Cane. Tobacco Former tobacco user Tobacco Use:. Family History Breast cancer: Mother. Family Member(s): ?? MOTHER, at age: Unknown. Cause of : Family Member(s): ?? FATHER, at age: Unknown. Cause of : Diet Orders Diet Order, 03/01/23 20:50:00 EDT, Regular Allergies Duragesic-12??(Unknown) codeine??(Hives, itchy, SOB) morphine??(Unknown) varenicline??(confusion, disorientation) Nutrition Lab Results Test Name Test Result Date/Time WBC 27.4 K/mcL 03/03/2023 06:10 EDT Hgb 9.1 g/dL 03/03/2023 06:10 EDT Hct 26.7 % 03/03/2023 06:10 EDT MCV 91.1 fL 03/03/2023 06:10 EDT Platelets 560 K/mcL 03/03/2023 06:10 EDT INR 1.1 03/01/2023 18:33 EDT Sodium Level 128 mmol/L 03/03/2023 06:10 EDT Potassium Level 3.5 mmol/L 03/03/2023 06:10 EDT Chloride Level 92 mmol/L 03/03/2023 06:10 EDT CO2 27 mmol/L 03/03/2023 06:10 EDT Alk Phos 113 IntlUnit/L 03/01/2023 18:33 EDT ALT 10 IntlUnit/L 03/01/2023 18:33 EDT BUN 12 mg/dL 03/03/2023 06:10 EDT Glucose Level 170 mg/dL 03/03/2023 06:10 EDT Creatinine Level 0.51 mg/dL 03/03/2023 06:10 EDT Albumin Level 3.2 g/dL 03/01/2023 18:33 EDT Bilirubin Total 0.8 mg/dL 03/01/2023 18:33 EDT Medications Inpatient acetaminophen, 650 mg= 2 tab, Oral, every 6 hr, PRN albuterol, 180 mcg= 2 puffs, Inhale, every 6 hr, PRN aspirin, 81 mg= 1 tab, Chewed, Daily baclofen, 20 mg= 2 tab, Oral, BID, PRN cetirizine, 10 mg= 1 tab, Oral, Daily, PRN enoxaparin, 40 mg= 0.4 mL, Subcutaneous, Daily folic acid, 1 mg= 1 tab, Oral, Daily guaiFENesin, 400 mg= 20 mL, Oral, every 4 hr ipratropium-albuterol 0.5 mg-2.5 mg/3 mL inhalation solution, 3 mL, NEB, every 3 hr, PRN ipratropium-albuterol 0.5 mg-2.5 mg/3 mL inhalation solution, 3 mL, NEB, every 6 hr levoFLOXacin, 750 mg= 150 mL, IV Piggyback, Daily levothyroxine, 100 mcg= 1 tab, Oral, Daily LORazepam, 1 mg= 0.5 mL, IV Push, every 1 hr, PRN magnesium oxide, 400 mg= 1 tab, Oral, Daily methylPREDNISolone, 60 mg= 1.5 mL, IV, every 8 hr (yun) MiraLax, 17 g= 1 EA, Oral, Daily, PRN montelukast, 10 mg= 1 tab, Oral, Daily nystatin 100,000 units/mL oral suspension, [id number] units= 5 mL, Oral, QID ondansetron, 4 mg= 1 tab, Oral, every 8 hr, PRN pantoprazole, 40 mg= 1 tab, Oral, Daily sodium chloride, 3 mL, NEB, every 6 hr thiamine, 100 mg= 1 tab, Oral, Daily vancomycin Zosyn Home Albuterol (Eqv-Ventolin HFA) 90 mcg/inh inhalation aerosol, 2 puffs, Inhale, every 4 hr, PRN aspirin 81 mg oral tablet, chewable, 81 mg= 1 tab, Chewed, Daily azelastine 137 mcg/inh (0.1%) nasal spray, 2 sprays, Nasal, BID, PRN baclofen 20 mg oral tablet, 20 mg= 1 tab, Oral, BID, PRN cetirizine 10 mg oral tablet, 10 mg= 1 tab, Oral, Daily, PRN folic acid 1 mg oral tablet, 1 mg= 1 tab, Oral, every morning ipratropium-albuterol 0.5 mg-2.5 mg/3 mL inhalation solution, 3 mL, NEB, every 4 hr, PRN levothyroxine 100 mcg (0.1 mg) oral tablet, 100 mcg= 1 tab, Oral, every morning magnesium oxide 400 mg (241.3 mg elemental magnesium) oral tablet, 400 mg= 1 tab, Oral, every morning montelukast 10 mg oral tablet, 10 mg= 1 tab, Oral, every morning multivitamin adult, oral tablet, 1 tab, Oral, Daily nystatin 100,000 units/mL oral suspension, [id number] units= 5 mL, Oral, QID omeprazole 40 mg oral delayed release capsule, 40 mg= 1 cap, Oral, every morning ondansetron 4 mg oral tablet, 4 mg= 1 tab, Oral, every 8 hr, PRN [id number] oral powder for reconstitution, 17 g, Oral, Daily, PRN Symbicort 160 mcg-4.5 mcg/inh inhalation aerosol, 2 puffs, Inhale, BID thiamine 250 mg oral tablet, 250 mg= 1 tab, Oral, Daily Vitamin B12 1000 mcg oral tablet, 1000 mcg= 1 tab, Oral, Daily Vitamin B6 100 mg oral tablet, 100 mg= 1 tab, Oral, Daily Vitamin C 500 mg oral tablet, chewable, 500 mg= 1 tab, Chewed, Daily Vitamin D3 125 mcg (5000 intl units) oral tablet, disintegrating, 125 mcg= 1 tab, Oral, Daily zinc (as gluconate) 50 mg oral tablet, 25 mg= 0.5 tab, Oral, every other day zolpidem 10 mg oral tablet, 10 mg= 1 tab, Oral, every night at bedtime, PRN Electronically Signed on 03/03/23 03:03 PM Letha Guerra Progress note * Keanu Wilson MD: PERFORM Event Display: Progress Note - Physician Authored Date: [id number] YANICK MARC :1960 Age:62 years Sex:Male Visit Date:03/01/2023 Primary Care Physician: PRAKASH ALLRED APRN Anticipated Discharge Date Tomorrow Subjective The patient??basically stronger, closer to baseline. Review of Systems Constitutional: Feeling better ENT:??No ear pain, nasal congestion, sore throat Respiratory: Some congestion, some elements of chronicity, chronic right-sided chest pain may be may be oncological related Cardiovascular:??No Chest pain, palpitations, syncope Gastrointestinal:??No nausea, vomiting, diarrhea Genitourinary:??No hematuria Musculoskeletal:??No back pain, neck pain, joint pain, muscle pain, decreased range of motion Neurologic:??Alert & oriented X 4 Objective Vitals & Measurements T:??36.8?C ??(Temporal Artery)?? TMIN:??36.4?C ??(Oral)?? TMAX:??36.8?C ??(Temporal Artery)?? HR:??104??(Peripheral)?? RR:??22?? BP:??136/90?? SpO2:??94%?? Pain Score:??4?? O2 Flow Rate:??2?? O2 Therapy:??Nasal cannula?? Physical Exam General: Oriented x4, baseline dysarthria.?? HENT: Baseline anatomical changes.?? Lungs: Decreased breath sounds in the left lower lobe, otherwise air movement is appropriate.?? Heart:??Normal rate, regular rhythm, no murmur, gallop or edema. Abdomen:??Soft, non-tender, non-distended, normal bowel sounds, no masses.?? Musculoskeletal:??Normal range of motion and strength, no tenderness or swelling. Skin:??Skin is warm, dry and pink, no rashes or lesions. Neurologic:??Awake, alert and oriented X4, CN I-XII intact Lab Results Last 24 Hours?? Chemistry ? Event Name?? Event Result?? Date/Time?? Sodium Level 129 mmol/L??Low 03/04/23 06:20:00 Potassium Level 3.3 mmol/L??Low 03/04/23 06:20:00 Chloride Level 90 mmol/L??Low 03/04/23 06:20:00 CO2 30 mmol/L 03/04/23 06:20:00 BUN 17 mg/dL 03/04/23 06:20:00 Glucose Level 141 mg/dL??High 03/04/23 06:20:00 Creatinine Level 0.51 mg/dL??Low 03/04/23 06:20:00 BUN/Creat Ratio 33.3??High 03/04/23 06:20:00 Calcium Level 9.6 mg/dL 03/04/23 06:20:00 Anion Gap 9 03/04/23 06:20:00 Osmolality 263 mOsm/kg??Low 03/04/23 06:20:00 eGFR CKD-EPI 116 mL/min/1.73 m2 03/04/23 06:20:00 ? Hematology ? Event Name?? Event Result?? Date/Time?? WBC 36.5 K/mcL??Critical 03/04/23 15:30:00 RBC 3.22 Million/mcL??Low 03/04/23 15:30:00 Hgb 10 g/dL??Low 03/04/23 15:30:00 Hct 29.5 %??Low 03/04/23 15:30:00 MCV 91.6 fL 03/04/23 15:30:00 MCH 31.1 pg??High 03/04/23 15:30:00 MCHC 33.9 g/dL 03/04/23 15:30:00 RDW-CV 15.1 %??High 03/04/23 15:30:00 Platelets 601 K/mcL??High 03/04/23 15:30:00 MPV 8.8 fL 03/04/23 15:30:00 Segs Man 98 03/04/23 06:20:00 Lymph Man 0 %??Low 03/04/23 06:20:00 Davis Man 2 % 03/04/23 06:20:00 Eos Man 0 % 03/04/23 06:20:00 Baso Man 0 % 03/04/23 06:20:00 Band Man 0 % 03/04/23 06:20:00 Abs Neut Man 33.9 K/mcL??High 03/04/23 06:20:00 Abs Lymph Man 0 K/mcL??Low 03/04/23 06:20:00 Abs Davis Man 0.7 K/mcL??High 03/04/23 06:20:00 Abs Eos Man 0 K/mcL 03/04/23 06:20:00 Abs Baso Man 0 K/mcL 03/04/23 06:20:00 RBC Morph Normal 03/04/23 06:20:00 Plt Estimation Increased Abnormal 03/04/23 06:20:00 Slide Review Man Diff 03/04/23 06:20:00 ? All Other Results ? Event Name?? Event Result?? Date/Time?? Vanco Tr 25.6 mcg/mL 03/04/23 12:38:00 Vanco Tr Ds Dt. 03/04/23 03/04/23 12:38:00 Vanco Tr Ds Tm. 1230 03/04/23 12:38:00 ? Assessment/Plan 1.??COPD with exacerbation??J44.1 Convert to prednisone, short burst. ??In 2 days. 2.??Pneumonia??J18.9 Triple therapy. ??Plan per??pulmonology is 14 days of Bactrim??upon discharge. 3.??Neuro-endocrine carcinoma??C7A.8 Patient has follow-up for radiation, oncological. 4.??Oral thrush??B37.0 Nystatin 5.??Hyponatremia??E87.1 Chronic,??multifactorial. 6.??Acquired hypothyroidism??E03.9 Continue Synthroid. 7.??GERD without esophagitis??K21.9 Continue??PPI. 8.??Alcohol abuse??F10.10 Detox protocol. 9.??Prediabetes??R73.03 6.2 hemoglobin A1c, lifestyle modification. ?? Leukocytosis-patient always has some element of chronic leukocytosis. ??He is coming in??with??infection of the left lower lobe??that is going to have some chronicity to it required 2 weeks of treatment,??neuroendocrine tumor, and steroids due to combination of??significant leukocytosis that seems to reach its maximum??and should improve??with??reduction of steroids but only to some level with the??potential colonization chronically of??MRSA in the left lower lobe and with??the neuroendocrine tumor. ?? Time??spent on patient care today is 40 minutes. Orders: vancomycin, 1 g = 1 EA, IV Piggyback, Injection, every 12 hr, Antibiotic Indication Pneumonia- HAP/VAP, Administer over: 60 minutes, First Dose: 03/04/23 18:00:00 EDT, Physician Stop, Routine, 250 mL/hr .Manual Differential (LTTL), Blood, Routine, Collected, 03/04/23 15:30:00 EDT, Once, Lab Collect, [id number] Blood Culture, Blood, Routine collect, RT - Routine, 03/04/23 16:16:00 EDT, Once, Nurse collect, Print Label Blood Culture, Blood, Routine collect, RT - Routine, 03/04/23 16:16:00 EDT, Once, Nurse collect, Print Label Discharge Patient, 03/04/23 16:12:00 EDT, Home Independently Electronically Signed on 03/04/23 04:28 PM Steve SLATER, Keanu * Lisset Slater MD: PERFORM Event Display: Progress Note - Physician Authored Date: [id number] YANICK MARC :1960 Age:62 years Sex:Male Visit Date:03/01/2023 Primary Care Physician: PRAKASH ALLRED APRN Anticipated Discharge Date 03/04/23 Subjective 62 yo M with hx advanced COPD on home O2 3-4 lpm, admission last month for LLL pneumonia, and recent diagnosis of RUL high grade neuroendocrine cancer presenting with 3 days of progressive dyspnea and cough productive of green sputum. Was also without O2 on the night of admission due to battery failure. 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 The LLL was evaluated and was obstructed with large purulent secretions which were + MRSA - no endobronchial lesions on the left/felt to be totally unrelated to his RUL disease.??He received 1 week of doxycycline finishing 02/25. During his January admission, he was treated with Zosyn and Augmentin. This admission, he is on levofloxacin, Zosyn??and vancomycin. ?? No events overnight. He remains on his home O2 3-4 lpm NC.??Feels better than when he??came in and near recent baseline.?? Objective Vitals & Measurements T:??36.8?C ??(Temporal Artery)?? TMIN:??36.1?C ??(Temporal Artery)?? TMAX:??36.8?C ??(Temporal Artery)?? HR:??96??(Peripheral)?? RR:??20?? BP:??132/78?? SpO2:??99%?? Pain Score:??2?? O2 Flow Rate:??2.5?? O2 Therapy:??Nasal cannula?? Physical Exam General: cachectic, appears older than stated age HEENT: post-radiation changes to neck CV: RRR, distant heart sounds Lungs: scattered wheezes and rhonchi improved; dullness LLL Abdomen: protuberant, normoactive BS, soft, nt/nd Ext: no edema Lab Results Last 24 Hours?? Chemistry ? Event Name?? Event Result?? Date/Time?? Sodium Level 128 mmol/L??Low 03/03/23 06:10:00 Potassium Level 3.5 mmol/L 03/03/23 06:10:00 Chloride Level 92 mmol/L??Low 03/03/23 06:10:00 CO2 27 mmol/L 03/03/23 06:10:00 BUN 12 mg/dL 03/03/23 06:10:00 Glucose Level 170 mg/dL??High 03/03/23 06:10:00 Creatinine Level 0.51 mg/dL??Low 03/03/23 06:10:00 BUN/Creat Ratio 23.5??High 03/03/23 06:10:00 Calcium Level 9.9 mg/dL 03/03/23 06:10:00 Anion Gap 9 03/03/23 06:10:00 eAvg Glucose 131 03/03/23 06:10:00 eAvg Glucose 126 03/03/23 06:10:00 Osmolality 261 mOsm/kg??Low 03/03/23 06:10:00 Hgb A1c Percent 6.2 %??High 03/03/23 06:10:00 Hgb A1c Percent 6 % 03/03/23 06:10:00 .Hb 9.1 g/dL 03/03/23 06:10:00 .Hb 9.5 g/dL 03/03/23 06:10:00 .Hgb A1c 0.4 g/dL 03/03/23 06:10:00 .Hgb A1c 0.4 g/dL 03/03/23 06:10:00 eGFR CKD-EPI 116 mL/min/1.73 m2 03/03/23 06:10:00 ? Hematology ? Event Name?? Event Result?? Date/Time?? WBC 27.4 K/mcL??Critical 03/03/23 06:10:00 RBC 2.93 Million/mcL??Low 03/03/23 06:10:00 Hgb 9.1 g/dL??Low 03/03/23 06:10:00 Hct 26.7 %??Low 03/03/23 06:10:00 MCV 91.1 fL 03/03/23 06:10:00 MCH 31.1 pg??High 03/03/23 06:10:00 MCHC 34.1 g/dL 03/03/23 06:10:00 RDW-CV 14.6 %??High 03/03/23 06:10:00 Platelets 560 K/mcL??High 03/03/23 06:10:00 MPV 8.9 fL 03/03/23 06:10:00 Segs Man 96 03/03/23 06:10:00 Lymph Man 0 %??Low 03/03/23 06:10:00 Davis Man 2 % 03/03/23 06:10:00 Eos Man 0 % 03/03/23 06:10:00 Baso Man 0 % 03/03/23 06:10:00 Band Man 2 % 03/03/23 06:10:00 Abs Neut Man 26.9 K/mcL??High 03/03/23 06:10:00 Abs Lymph Man 0 K/mcL??Low 03/03/23 06:10:00 Abs Davis Man 0.5 K/mcL 03/03/23 06:10:00 Abs Eos Man 0 K/mcL 03/03/23 06:10:00 Abs Baso Man 0 K/mcL 03/03/23 06:10:00 RBC Morph Normal 03/03/23 06:10:00 Plt Estimation Increased Abnormal 03/03/23 06:10:00 Slide Review Man Diff 03/03/23 06:10:00 Assessment/Plan 62 yo M advanced COPD, chronic LLL pneumonia with lobar collapse, RUL neuroendocrine cancer admitted with worsening productive cough and SOB. Suspect rebound of his pneumonia following incomplete tx with outpatient doxycycline. Doing much better and can likely go home tomorrow. ?? 1.??COPD with exacerbation??J44.1 Methylprednisolone. Home O2 3-4 lpm at baseline. Will discharge with short course of prednisone. ?? 2.??Pneumonia J18.9 Persistent after hospitalizations in January with chronic LLL collapse. Bronchoscopy [facility] [place] 02/11 no LLL mass but thick secretions suctions and MRSA positive resistant to clindamycin and erythromycin; sensitive to Bactrim, tetracyclines, cipro. HCAP as he had IV antibiotics in January. Resp panel negative. Strep pneumo, legionella ag negative. Sputum culture finally obtained today. Case discussed with [facility] pulmonology at the time of admission Dr. Christine. Agreed w/ abx and steroids; also recommended chest PT, hypertonic saline nebs and duonebs. Spoke today with Dr. Quinn who did pt's bronchoscopy - anticipate chronic lobar collapse will continue to act as nidus for infection; treat only if clinical scenario warrants. Agreed on 14-day course of Bactrim as an outpatient, f/u with PCP and can call pulmonology prn. Continue vanco, zosyn and levofloxacin while inpatient. ?? 3.??Neuro-endocrine carcinoma??C7A.8 ??Followed by [facility]. PET scan 03/07 and first radiation treatment 03/13. ?? 4. Prediabetes. New diagnosis with A1c 6.2 performed due to persistently high glucoses. Education given to pt and family. No tx required. ?? 5.??Oral thrush??B37.0 ??Nystatin suspension QID.? 6. Hx SCC tonsil with neck irradiation and chronic swallowing difficulties. Mechanical soft diet and some difficulty swallowing large pills. ?? 7.??Hyponatremia??E87.1. Chronic. 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 At??baseline. ?? 8.??Acquired hypothyroidism??E03.9.??Levothyroxine. ?? 9.??GERD without esophagitis??K21.9. Stable. Pantoprazole. ?? 10.??Alcohol abuse??F10.10. CIWA protocol. ?? 11. DVT prophylaxis - lovenox. ?? 12. Full code. Confirmed with patient who states he revised his AD after January admission and revoked DNR.?? Electronically Signed on 03/03/23 03:50 PM Lisset Slater MD * Lisset Slater MD: PERFORM Event Display: Progress Note - Physician Authored Date: [id number] YANICK MARC :1960 Age:62 years Sex:Male Visit Date:03/01/2023 Primary Care Physician: PRAKASH ALLRED APRN Subjective 62 yo M with hx advanced COPD on home O2 3-4 lpm, admission last month for LLL pneumonia, and recent diagnosis of RUL high grade neuroendocrine cancer presenting with 3 days of progressive dyspnea and cough productive of green sputum. Was also without O2 on the night of admission due to battery failure. 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 The LLL was evaluated and was obstructed with large purulent secretions which were + MRSA - no endobronchial lesions on the left/felt to be totally unrelated to his RUL disease.??He received 1 week of doxycycline finishing 02/25. During his January admission, he was treated with Zosyn and Augmentin. This admission, he was started on levofloxacin and vancomycin. ?? No events overnight. He remains on his home O2 3-4 lpm NC. Reports dyspnea a bit better. Objective Vitals & Measurements T:??36.4?C ??(Temporal Artery)?? TMIN:??36.3?C ??(Tympanic)?? TMAX:??36.4?C ??(Oral)?? HR:??96??(Peripheral)?? RR:??20?? BP:??123/87?? SpO2:??93%?? HT:??182.880??cm?? WT:??57.000??kg?? BMI:??17.040?? Pain Score:??0?? O2 Flow Rate:??3?? O2 Therapy:??Nasal cannula?? Physical Exam General: cachectic, appears older than stated age HEENT: post-radiation changes to neck CV: RRR, distant heart sounds Lungs: scattered wheezes and rhonchi; dullness LLL Abdomen: protuberant, normoactive BS, soft, nt/nd Ext: no edema Lab Results Last 24 Hours?? Chemistry ? Event Name?? Event Result?? Date/Time?? Sodium Level 125 mmol/L??Critical 03/02/23 05:17:00 Potassium Level 3.8 mmol/L 03/02/23 05:17:00 Chloride Level 87 mmol/L??Low 03/02/23 05:17:00 CO2 29 mmol/L 03/02/23 05:17:00 Alk Phos 113 IntlUnit/L 03/01/23 18:33:00 AST 21 IntlUnit/L 03/01/23 18:33:00 ALT 10 IntlUnit/L??Low 03/01/23 18:33:00 BUN 12 mg/dL 03/02/23 05:17:00 Glucose Level 125 mg/dL??High 03/02/23 05:17:00 Creatinine Level 0.64 mg/dL 03/02/23 05:17:00 BUN/Creat Ratio 18.8 03/02/23 05:17:00 Calcium Level 10 mg/dL 03/02/23 05:17:00 Protein Total 7.5 g/dL 03/01/23 18:33:00 Albumin Level 3.2 g/dL??Low 03/01/23 18:33:00 Globulin 4.3 03/01/23 18:33:00 A/G Ratio 0.7 03/01/23 18:33:00 Bilirubin Total 0.8 mg/dL 03/01/23 18:33:00 Anion Gap 9 03/02/23 05:17:00 Osmolality 253 mOsm/kg??Low 03/02/23 05:17:00 eGFR CKD-EPI 108 mL/min/1.73 m2 03/02/23 05:17:00 Troponin-I 0.04 ng/mL 03/01/23 18:33:00 TSH 1.38 mIntlUnit/mL 03/01/23 18:33:00 Procalcitonin 0.64??High 03/01/23 18:33:00 ? Hematology ? Event Name?? Event Result?? Date/Time?? WBC 22.8 K/mcL??High 03/02/23 05:17:00 RBC 3.45 Million/mcL??Low 03/02/23 05:17:00 Hgb 10.6 g/dL??Low 03/02/23 05:17:00 Hct 32.1 %??Low 03/02/23 05:17:00 MCV 93 fL 03/02/23 05:17:00 MCH 30.7 pg 03/02/23 05:17:00 MCHC 33 g/dL 03/02/23 05:17:00 RDW-CV 14.8 %??High 03/02/23 05:17:00 Platelets 650 K/mcL??High 03/02/23 05:17:00 MPV 9 fL 03/02/23 05:17:00 Neutro Auto 69.8 % 03/02/23 05:17:00 Lymph Auto 1.1 %??Low 03/02/23 05:17:00 Davis Auto 1.5 %??Low 03/02/23 05:17:00 Eos, Auto 26.2 %??High 03/02/23 05:17:00 Basophil Auto 0.2 % 03/02/23 05:17:00 Imm Gran Auto 1.2 %??High 03/02/23 05:17:00 Neutro Absolute 15.9 K/mcL??High 03/02/23 05:17:00 Lymph Absolute 0.2 K/mcL??Low 03/02/23 05:17:00 Davis Absolute 0.4 K/mcL 03/02/23 05:17:00 Eos Absolute 6 K/mcL??High 03/02/23 05:17:00 Baso Absolute 0 K/mcL 03/02/23 05:17:00 Imm Gran Absolute 0.27 03/02/23 05:17:00 Segs Man 72 03/01/23 18:33:00 Lymph Man 3 %??Low 03/01/23 18:33:00 Davis Man 9 % 03/01/23 18:33:00 Eos Man 0 % 03/01/23 18:33:00 Baso Man 0 % 03/01/23 18:33:00 Band Man 16 % 03/01/23 18:33:00 Abs Neut Man 21.8 K/mcL??High 03/01/23 18:33:00 Abs Lymph Man 0.7 K/mcL??Low 03/01/23 18:33:00 Abs Davis Man 2.2 K/mcL??High 03/01/23 18:33:00 Abs Eos Man 0 K/mcL 03/01/23 18:33:00 Abs Baso Man 0 K/mcL 03/01/23 18:33:00 RBC Morph Abnormal Abnormal 03/01/23 18:33:00 Hypochromia 2+ Abnormal 03/01/23 18:33:00 Plt Estimation Increased Abnormal 03/01/23 18:33:00 Slide Review Man Diff 03/01/23 18:33:00 ? Coagulation/Thrombosis ? Event Name?? Event Result?? Date/Time?? Prothrombin Time 10.7 seconds??High 03/01/23 18:33:00 INR 1.1 03/01/23 18:33:00 ? All Other Results ? Event Name?? Event Result?? Date/Time?? Legionella Ag Ur Negative 03/02/23 04:15:00 Streptococcus Pneumonia Antigen Negative 03/02/23 04:15:00 Adenovirus RespP-BFire Not Detected BF 03/01/23 19:55:00 Bordetella parapertussis RespP-BFire Not Detect-BioFire 03/01/23 19:55:00 Bordetella pertussis RespP-BFire Not Detect-BioFire 03/01/23 19:55:00 Chlamydophila pneumoniae RespP-BFire Not Detect-BioFire 03/01/23 19:55:00 Coronavirus 229E (Not COVID-19) RP-BFire Not Detect-BioFire 03/01/23 19:55:00 Coronavirus HKU1 (Not COVID-19) RP-BFire Not Detect-BioFire 03/01/23 19:55:00 Coronavirus NL63 (Not COVID-19) RP-BFire Not Detect-BioFire 03/01/23 19:55:00 Coronavirus OC43 (Not COVID-19) RP-BFire Not Detect-BioFire 03/01/23 19:55:00 SARS-CoV-2 (COVID-19) RP-BFire Not Detect-BioFire 03/01/23 19:55:00 Human Metapneumonovirus RespP-BFire Not Detect-BioFire 03/01/23 19:55:00 Human Rhinovirus/Enterovirus RespP-BFir Not Detect-BioFire 03/01/23 19:55:00 Influenza A RespP-BFire Not Detect-BioFire 03/01/23 19:55:00 Influenza B RespP-BFire Not Detect-BioFire 03/01/23 19:55:00 Mycomplasma pneumoniae RespP-BFire Not Detect-BioFire 03/01/23 19:55:00 Parainfluenza Virus 1 RespP-BFire Not Detect-BioFire 03/01/23 19:55:00 Parainfluenza Virus 2 RespP-BFire Not Detect-BioFire 03/01/23 19:55:00 Parainfluenza Virus 3 RespP-BFire Not Detect-BioFire 03/01/23 19:55:00 Parainfluenza Virus 4 RespP-BFire Not Detect-BioFire 03/01/23 19:55:00 Respiratory Syncytial Virus RespP-BFire Not Detect-BioFire 03/01/23 19:55:00 Employed in healthcare? Unknown 03/01/23 19:55:00 Symptomatic as defined by CDC? Unknown 03/01/23 19:55:00 Hospitalized due to COVID-19? Unknown 03/01/23 19:55:00 In ICU? Unknown 03/01/23 19:55:00 Group care resident? Unknown 03/01/23 19:55:00 status? Unknown 03/01/23 19:55:00 ? Assessment/Plan 62 yo M advanced COPD, chronic LLL pneumonia with lobar collapse, RUL neuroendocrine cancer admitted with worsening productive cough and SOB. Suspect rebound of his pneumonia following incomplete tx with outpatient doxycycline. ?? 1.??COPD with exacerbation??J44.1 Added methylprednisolone today. Home O2 3-4 lpm at baseline. ?? 2.??Pneumonia J18.9 Persistent after hospitalizations in January with chronic LLL collapse. Bronchoscopy [facility] [place] 02/11 no LLL mass but thick secretions suctions and MRSA positive. HCAP as he had IV antibiotics in January.??Leukocytosis. Resp panel negative. Strep pneumo, legionella ag and sputum culture pending. Recent abx courses Zosyn, Augmentin and this month 7 days doxycycline finishing 02/25. Case discussed with [facility] pulmonology at the time of admission Dr. Álvarez. Agreed w/ abx and steroids; also recommended chest PT, hypertonic saline nebs and duonebs. Continue vanco for MRSA, levofloxacin for pseudomonal coverage but add Zosyn for double coverage. ?? 3.??Neuro-endocrine carcinoma??C7A.8 ??Followed by [facility]. PET scan 03/07 and first radiation treatment 03/13. ?? 4.??Oral thrush??B37.0 ??Nystatin suspension QID.? 5. Hx SCC tonsil with neck irradiation and chronic swallowing difficulties. Mechanical soft diet and some difficulty swallowing large pills. ?? 6.??Hyponatremia??E87.1. Chronic. 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 At??baseline. ?? 7.??Acquired hypothyroidism??E03.9.??Levothyroxine. ?? 8.??GERD without esophagitis??K21.9. Stable. Pantoprazole. ?? 9.??Alcohol abuse??F10.10. CIWA protocol. ?? 10. DVT prophylaxis - lovenox. ?? 11. Full code. Confirmed with patient who states he revised his AD after January admission and revoked DNR.?? 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 Chronic home O2 use of 3-4 LNC. Not requiring higher flow. He adds that overnight he was without oxygen due to battery failure in his O2 delivery unit. ?? No other acute complaints. Chronic transient anorexia, nausea, headaches and variable chest pressure. ?? Recent thrush, prescribed nystatin which he states he took and finished bottle, but thrush persists. ?? He had a bronchoscopy on 02/11. Per [facility] notes RUL nodule is high grade neuroendocrine carcinoma with large cell features, it was ruled out to be head and neck cancer. The LLL was evaluated and was obstructed with large purulent secretions which were + MRSA - no endobronchial lesions on the left/felt to be totally unrelated to his RUL disease. Patient thinks he was prescribed antibiotics after this finding but wasn't certain and could not recall it's name. ?? He has PET scan scheduled for 03/07 and first radiation treatment scheduled for 03/13. ?? He had 2 admissions in January for pneumonia and COPD exacerbation. He was treated for bacterial pneumonia though notes state it was difficult to really say for certainty??as he seems to have a chronically partially collapsed left lower lobe.??He is on chronic prednisone. ?? He no longer smokes, quit 4 years ago, after an 80 pack year habit. ?? History of alcohol use disorder, currently drinking about 3 beers daily. Daily cannabis edibles. ?? In the ED Afebrile, a little tachycardic and tachypneic. O2 sats 94% on 3L NC. WBC 24.8, Platelets 682. Sodium 126, Potassium 3.5, normal renal function. Procalcitonin 0.64 ?? CTA chest IMPRESSION:?? 1. ?? No evidence of acute pulmonary embolism.??2. ?? Slight increase in the size of the patient's right upper lobe pulmonary??mass.??3.?Severe centrilobular emphysematous changes.??4.??Chronic left lower lobe collapse likely secondary to endobronchial lesion??or bronchial occlusive compression.? He sister, Andressa Marc, is emergency contact. [phone] Review of Systems Constitutional: No fevers, chills, sweats, or unintentional weight loss Eye: No blurred or double vision, or drainage ENNT: Persistent thrush. No ear pain, nasal congestion, stiff neck, or sore throat Respiratory: Exertional dyspnea, productive cough of green sputum Cardiovascular: Chronic, transient, self limiting chest discomfort that is variable in presentation. No palpitations or syncope Gastrointestinal: Chronic transient nausea. No vomiting, diarrhea, dark or bloody stools Genitourinary: No hematuria, burning or frequency Sushant/Lymph: No bruising tendency or swollen lymph glands Endocrine: No excessive thirst/hunger or heat/cold intolerance Musculoskeletal: No joint pain, muscle pain,??or decreased range of motion Integumentary: No rash, pruritus, abrasions or ulcerations Neurologic: No confusion, speech/swallow difficulty, or limb weakness/paralysis Psychiatric: No anxiety, depression, or suicide/homicide ideation ? Physical Exam Vitals & Measurements T:??36.4?C ??(Oral)?? TMIN:??36.3?C ??(Tympanic)?? TMAX:??36.4?C ??(Oral)?? HR:??92??(Peripheral)?? RR:??28?? BP:??122/80?? SpO2:??93%?? HT:??182.880??cm?? WT:??57.000??kg?? BMI:??17.040?? O2 Flow Rate:??3?? O2 Therapy:??Nasal cannula?? General: Alert and oriented, cachetic and chronically ill-appearing, appears older than stated age,in no acute distress Eye: PERRL, EOMI, normal conjunctiva, no scleral icterus HENT: Normocephalic, dry oral mucosa with yellow/white lesions coating tongue and oropharynx Neck: Supple, non-tender, negative for carotid bruits, JVD, and lymphadenopathy Lungs: Diminshed breath sounds throughout, faint scattered rhonchi, prolonged expiratory phase withfaint low pitch??expiratory wheezes, egophonic over right upper and middle posterior argueta, as well has left middle posterior lung field. Non-labored respirations Heart: Normal rate, regular rhythm, hypophonic heart sounds, no appreciable murmur, rub, gallop, S3or S4 Peripheral: Pulses 3+ and symmetric, cap refill < 3 secs, no edema, no calf tenderness Abdomen: Schaphoid, soft, non-tender, normal bowel sounds, no rebound, guarding, or masses Musculoskeletal: Normal range of motion and strength, no tenderness or swelling Skin: [place], warm, dry, no rashes, lesions or discolorations Neurologic: Awake, alert and oriented X4, CN II-XII intact, motor and sensory intact Psychiatric: Cooperative, appropriate mood and affect ? Assessment/Plan 1.??COPD with exacerbation??J44.1 Increase prednisone to 60 mg daily. PRN duonebs. Continue montelukast. ?? 2.??Pneumonia??J18.9 Respiratory panel negative. Elevated procalcitonin. Recently treated 6 weeks ago with Zosyn, discharged on Augmentin. Post bronchoscopy on 02/11, biopsy taken of RUL nodule and findings included +MRSA purulent secretions obstructing LLL. Will need pseudomonal and MRSA coverage. Received IV Levaquin and IV Vancomycin. [facility] pulmonology (Dr. Christine) consulted, agrees with plan for antibiotic treatment with levaquin and vancomycin. Recommends hypertonic saline nebs, chest PT, and standing nebulizers. ?? Check strep pneumo, legionella, sputum culture. ?? 3.??Neuro-endocrine carcinoma??C7A.8 Followed by [facility]. PET scan scheduled for 03/07 and first radiation treatment scheduled for 03/13. Slight increase in the size of the patient's right upper lobe pulmonary??mass on CT. Defer to oncology. ?? 4.??Oral thrush??B37.0 Nystatin suspension QID. ?? 5.??Hyponatremia??E87.1 Chronic. May be multifactorial with dehydration, low solute intake, beer drinkers potomania, and probable SIADH with lung mass. Gentle hydration with NS. ?? 6.??Acquired hypothyroidism??E03.9 Levothyroxine. Check TSH. ?? 7.??GERD without esophagitis??K21.9 Stable. Pantoprazole. ?? 8.??Alcohol abuse??F10.10 CIWA protocol. ? DVT prophylaxis - lovenox ?? Full code ? He sister, Andressa Marc, is emergency contact. [phone] Orders: acetaminophen, 650 mg = 2 tab, Oral, Tab, every 6 hr, PRN pain, mild, First Dose: 03/01/23 20:50:00EDT, Routine albuterol, 180 mcg = 2 puffs, Inhale, Aerosol, every 6 hr, PRN wheezing, First Dose: 03/01/23 21:21:00 EDT, Routine aspirin, 81 mg = 1 tab, Chewed, Tab-Chew, Daily, First Dose: 03/02/23 9:00:00 EDT, Routine baclofen, 20 mg = 2 tab, Oral, Tab, BID, PRN other (see comment), First Dose: 03/01/23 21:22:00 EDT, Routine cetirizine, 10 mg = 1 tab, Oral, Tab, Daily, PRN allergy symptoms, First Dose: 03/01/23 21:23:00 EDT, Routine enoxaparin, 40 mg = 0.4 mL, Subcutaneous, Injection, Daily, First Dose: 03/02/23 9:00:00 EDT, Routine folic acid, 1 mg = 1 tab, Oral, Tab, Daily, First Dose: 03/02/23 9:00:00 EDT, Routine Mucinex, 1,200 mg = 2 tab, Oral, Tab-ER, BID for 30 days, First Dose: 03/02/23 9:00:00 EDT, Stop Date: 04/01/23 8:59:00 EDT, Physician Stop, Routine ipratropium 500 mcg/2.5 mL inhalation solution, 0.5 mg = 2.5 mL, NEB, Soln, every 6 hr RT for 30 days, First Dose: 03/02/23 0:00:00 EDT, Stop Date: 03/31/23 23:59:00 EDT, Physician Stop, Routine ipratropium-albuterol 0.5 mg-2.5 mg/3 mL inhalation solution, 3 mL, NEB, Soln, every 3 hr, PRN shortness of breath, First Dose: 03/01/23 20:50:00 EDT, Routine levoFLOXacin, 750 mg = 150 mL, IV Piggyback, Injection, Daily for 3 days, Antibiotic Indication Pneumonia, Administer over: 90 minutes, First Dose: 03/02/23 19:00:00 EDT, Stop Date: 03/05/23 18:59:00EDT, Physician Stop, Routine, 100 mL/hr levothyroxine, 100 mcg = 1 tab, Oral, Tab, Daily, First Dose: 03/02/23 6:30:00 EDT, Routine LORazepam, 1 mg = 0.5 mL, IV Push, Injection, every 1 hr, PRN symptoms of alcohol withdrawal, FirstDose: 03/02/23 8:39:00 EDT, Routine magnesium oxide, 400 mg = 1 tab, Oral, Tab, Daily, First Dose: 03/02/23 9:00:00 EDT, Routine montelukast, 10 mg = 1 tab, Oral, Tab, Daily, First Dose: 03/02/23 9:00:00 EDT, Routine nystatin 100,000 units/mL oral suspension, 500,000 units = 5 mL, Oral, Susp, QID for 30 days, Antibiotic Indication Canididiasis, First Dose: 03/01/23 21:00:00 EDT, Stop Date: 03/31/23 20:59:00 EDT, Physician Stop, Routine ondansetron, 4 mg = 1 tab, Oral, Tab-Dis, every 8 hr, PRN nausea/vomiting, First Dose: 03/01/23 21:24:00 EDT, Routine pantoprazole, 40 mg = 1 tab, Oral, Tab-DR, Daily for 30 days, First Dose: 03/02/23 6:30:00 EDT, Stop Date: 04/01/23 6:29:00 EDT, Physician Stop, Routine MiraLax, 17 g = 1 EA, Oral, Powder-Recon, Daily, PRN constipation, First Dose: 03/01/23 21:24:00 EDT, Routine rOPINIRole, 4 mg = 4 tab, Oral, Tab, every night at bedtime, PRN other (see comment), First Dose: 03/01/23 21:24:00 EDT, Routine NS drip 1,000 mL, Total Volume (mL): 1,000, 1,000 mL, Soln-IV, IV, 100 mL/hr, Order Duration: 30 days, Start Date: 03/01/23 22:21:00 EDT, Stop Date: 03/31/23 22:20:00 EDT, 57 kg, Populate Charting Weight From Order, 1.7, m2 thiamine, 100 mg = 1 tab, Oral, Tab, Daily, First Dose: 03/02/23 9:00:00 EDT, Routine vancomycin, 1 g = 1 EA, IV Piggyback, Injection, every 12 hr (yun) for 3 days, Antibiotic Indication Pneumonia, Administer over: 60 minutes, First Dose: 03/02/23 11:00:00 EDT, Stop Date: 03/05/23 10:59:00 EDT, Physician Stop, Routine, 250 mL/hr Basic Metabolic Panel, Blood, Routine, 03/01/23 20:51:00 EDT, Daily, for 3 days, Lab Collect CBC w/ Diff, Blood, Routine, 03/01/23 20:51:00 EDT, Daily, for 3 days, Lab Collect Chest Percussive Therapy (CPT), every 4 hr-WA, Difficulty with Secretion Clearance CIWA Alcohol Withdrawal, 03/02/23 8:38:00 EDT Diet Order, 03/01/23 20:50:00 EDT, Regular Notify Provider, 03/02/23 8:39:00 EDT, Constant order, of seizure activity, severe hallucincations or delusions, or CIWA score of 19 or above Notify Provider of Vital Signs, 03/02/23 8:39:00 EDT, T > 38.3, HR > 110, Constant Indicator Patient Condition, 03/01/23 20:50:00 EDT, Condition Good/ Stable PSO Admit to Inpatient, [facility], Inpatient, Lisset Slater MD, 03/01/23 20:44:00 EDT, 03/01/23 20:44:00 EDT, 03/01/23 20:44:00 EDT, Less than 96 hours Resuscitation Status, 03/01/23 20:50:00 EDT, Full Code Sputum Culture, Sputum, Routine collect, RT - Routine, 03/01/23 20:50:00 EDT, Once, Nurse collect Up ad Radha, 03/01/23 20:50:00 EDT, Constant Order, at nurse's discretion, 03/01/23 20:50:00 EDT Vital Signs, 03/01/23 20:50:00 EDT, QID Vital Signs, 03/02/23 8:39:00 EDT, Constant order, Assess on admission, q1h after each dose of medication until CIWA is less than 8 while awake, and q4h if CIWA is less than 8 x 24 hours while awake Images X-Ray:?? Computed Tomography: ?? CT Angio Chest ?? 03/01/23 18:35:29 PROCEDURE INFORMATION: Exam: CTA Chest With Contrast Exam date and time: 03/01/2023 6:35 PM Age: 62 years old Clinical indication: Other: Chest pain ?? TECHNIQUE: Imaging protocol: Computed tomographic angiography of the chest with contrast. 3D rendering (Not supervised by radiologist): MIP and/or 3D reconstructed images were created by the technologist. Radiation optimization: All CT scans at this facility at least one of these dose optimization techniques: automated exposure control; mA and/or kV adjustment per patient size (includes targeted exams where dose is matched to clinical indication); or iterative reconstruction. Contrast material: [id number]; Contrast volume: 100 ml; Contrast route: INTRAVENOUS (IV); ?? REPORTING DATA: Count of CT and Cardiac NM exams in prior 12 months: This patient has received 5 known CTs and 0 known cardiac nuclear medicine studies in the 12 months prior to the current study. ?? COMPARISON: CT ANGIO CHEST 01/18/2023 10:23 AM ?? FINDINGS: Pulmonary arteries: The pulmonary arteries are normal in caliber. No evidence of acute pulmonary embolism. Aorta: The aorta is normal without evidence of aneurysmal dilatation, dissection or occlusive disease. ?? Lungs: Severe centrilobular emphysematous changes are present. There is 3.4 x 2.4 x 3.4 no upshot an measurement present is pretty darn discussed with the with the good free air utilizing clean where and mid cm mass present within the apex of the right lung consistent with patient???s known history of pulmonary neoplasm. This shows increased size compared to the prior study where it measured 3 x 2.1 x 3.4 cm. There is dense consolidation and collapse of the left lower lobe of the lung posterior basilar segment likely secondary to endobronchial lesion or occlusion unchanged compared to the prior study of 01/18/2023. There is no evidence of focal pulmonary consolidation. No evidence of pulmonary parenchymal inflammatory changes. There is no evidence of pulmonary masses. Pleural spaces: There is no evidence of pneumothorax. There are no pleural effusions present. Heart: The cardiac structures are normal. The right ventricular to left ventricular ratio is normal measuring approximately 0.9. No evidence of reflux of contrast into the inferior vena cava or hepatic veins to suggest right heart strain or pulmonary hypertension. Coronary arteries: There is mild atherosclerotic calcification of the coronary arteries. Lymph nodes: There is no evidence of lymphadenopathy. ?? Bones/joints: The spine, sternum, ribs, and pectoral girdles show no evidence of acute abnormality. Soft tissues: There are no soft tissue masses or fluid collections. The upper abdominal viscera are unremarkable. ?? Other findings: The mediastinal structures are normal. ?? IMPRESSION: 1. No evidence of acute pulmonary embolism. 2. Slight increase in the size of the patient???s right upper lobe pulmonary mass. 3. Severe centrilobular emphysematous changes. 4. Chronic left lower lobe collapse likely secondary to endobronchial lesion or bronchial occlusive compression. ?? COMMENTS: In the absence of a history or active diagnosis of lung cancer, it is recommended that this patient with emphysema be evaluated for enrollment in a low dose CT lung cancer screening program. ? THIS DOCUMENT HAS BEEN ELECTRONICALLY SIGNED BY PRAKASH SORTO MD on 03/01/2023 07:37 PM ?? Signed By: Prakash Sorto MD Ultrasound:?? MRI:?? Echo:?? Mammography:? Problem List/Past Medical History Ongoing Acquired hypothyroidism Alcohol abuse Altered mental status COPD (chronic obstructive pulmonary disease) External ear conductive hearing loss Fibromyalgia GERD without esophagitis Impacted cerumen Incontinence of urine Lumbar degenerative disc disease Otorrhea Primary hypomagnesemia RLS (restless legs syndrome) Syncope and collapse Tonsil carcinoma Historical No qualifying data Procedure/Surgical History ???Cardiac catheterization???Cholecystectomy???Colonoscopy???Insertion of chest tube???Repair of umbilical hernia???Splenectomy Medications Inpatient acetaminophen, 650 mg= 2 tab, Oral, every 6 hr, PRN albuterol, 180 mcg= 2 puffs, Inhale, every 6 hr, PRN aspirin, 81 mg= 1 tab, Chewed, Daily baclofen, 20 mg= 2 tab, Oral, BID, PRN cetirizine, 10 mg= 1 tab, Oral, Daily, PRN enoxaparin, 40 mg= 0.4 mL, Subcutaneous, Daily folic acid, 1 mg= 1 tab, Oral, Daily ipratropium-albuterol 0.5 mg-2.5 mg/3 mL inhalation solution, 3 mL, NEB, every 3 hr, PRN levothyroxine, 100 mcg= 1 tab, Oral, Daily magnesium oxide, 400 mg= 1 tab, Oral, Daily MiraLax, 17 g= 1 EA, Oral, Daily, PRN montelukast, 10 mg= 1 tab, Oral, Daily Mucinex, 1200 mg= 2 tab, Oral, BID NS drip 1,000 mL, 1000 mL, IV nystatin 100,000 units/mL oral suspension, [id number] units= 5 mL, Oral, QID ondansetron, 4 mg= 1 tab, Oral, every 8 hr, PRN pantoprazole, 40 mg= 1 tab, Oral, Daily rOPINIRole, 4 mg= 4 tab, Oral, every night at bedtime, PRN thiamine, 100 mg= 1 tab, Oral, Daily vancomycin Home Albuterol (Eqv-Ventolin HFA) 90 mcg/inh inhalation aerosol, 2 puffs, Inhale, every 6 hr, PRN amoxicillin-clavulanate 875 mg-125 mg oral tablet, 1 tab, Oral, every 12 hr (yun) aspirin 81 mg oral tablet, chewable, 81 [...] adult, oral tablet, 1 tab, Oral, Daily nystatin 100,000 units/mL oral suspension, [id number] units= 5 mL, Oral, QID omeprazole 40 mg oral delayed release capsule, [...] Cane. Tobacco Former tobacco user Tobacco Use:. Family History Breast cancer: Mother. Family Member(s): ?? MOTHER, at age: Unknown. Cause of : Family Member(s): ?? FATHER, at age: Unknown. Cause of : Lab Results Test Name Test Result Date/Time Slide Review Man Diff 03/01/2023 18:33 EDT WBC 24.8 K/mcL 03/01/2023 18:33 EDT RBC 3.77 Million/mcL 03/01/2023 18:33 EDT Hgb 11.5 g/dL 03/01/2023 18:33 EDT Hct 34.6 % 03/01/2023 18:33 EDT MCV 91.8 fL 03/01/2023 18:33 EDT MCH 30.5 pg 03/01/2023 18:33 EDT MCHC 33.2 g/dL 03/01/2023 18:33 EDT RDW-CV 14.7 % 03/01/2023 18:33 EDT Platelets 682 K/mcL 03/01/2023 18:33 EDT MPV 9.4 fL 03/01/2023 18:33 EDT Segs Man 72 03/01/2023 18:33 EDT Lymph Man 3.0 % 03/01/2023 18:33 EDT Davis Man 9.0 % 03/01/2023 18:33 EDT Eos Man 0.00 % 03/01/2023 18:33 EDT Baso Man 0.0 % 03/01/2023 18:33 EDT Band Man 16 % 03/01/2023 18:33 EDT Abs Neut Man 21.8 K/mcL 03/01/2023 18:33 EDT Abs Lymph Man 0.7 K/mcL 03/01/2023 18:33 EDT Abs Davis Man 2.2 K/mcL 03/01/2023 18:33 EDT Abs Eos Man 0.0 K/mcL 03/01/2023 18:33 EDT Abs Baso Man 0.0 K/mcL 03/01/2023 18:33 EDT RBC Morph Abnormal 03/01/2023 18:33 EDT Hypochromia 2+ 03/01/2023 18:33 EDT Plt Estimation Increased 03/01/2023 18:33 EDT Prothrombin Time 10.7 seconds 03/01/2023 18:33 EDT INR 1.1 03/01/2023 18:33 EDT Sodium Level 126 mmol/L 03/01/2023 18:33 EDT Potassium Level 3.5 mmol/L 03/01/2023 18:33 EDT Chloride Level 85 mmol/L 03/01/2023 18:33 EDT CO2 31 mmol/L 03/01/2023 18:33 EDT Alk Phos 113 IntlUnit/L 03/01/2023 18:33 EDT AST 21 IntlUnit/L 03/01/2023 18:33 EDT ALT 10 IntlUnit/L 03/01/2023 18:33 EDT BUN 10 mg/dL 03/01/2023 18:33 EDT Glucose Level 112 mg/dL 03/01/2023 18:33 EDT Creatinine Level 0.72 mg/dL 03/01/2023 18:33 EDT BUN/Creat Ratio 13.9 03/01/2023 18:33 EDT Calcium Level 10.3 mg/dL 03/01/2023 18:33 EDT Protein Total 7.5 g/dL 03/01/2023 18:33 EDT Albumin Level 3.2 g/dL 03/01/2023 18:33 EDT Globulin 4.3 03/01/2023 18:33 EDT A/G Ratio 0.7 03/01/2023 18:33 EDT Bilirubin Total 0.8 mg/dL 03/01/2023 18:33 EDT Anion Gap 10.0 03/01/2023 18:33 EDT Osmolality 253 mOsm/kg 03/01/2023 18:33 EDT eGFR CKD-EPI 105 mL/min/1.73 m2 03/01/2023 18:33 EDT Troponin-I 0.04 ng/mL 03/01/2023 18:33 EDT Procalcitonin 0.64 03/01/2023 18:33 EDT Adenovirus RespP-BFire Not Detected BF 03/01/2023 19:55 EDT Bordetella parapertussis RespP-BFire Not Detect-BioFire 03/01/2023 19:55 EDT Bordetella pertussis RespP-BFire Not Detect-BioFire 03/01/2023 19:55 EDT Chlamydophila pneumoniae RespP-BFire Not Detect-BioFire 03/01/2023 19:55 EDT Coronavirus 229E (Not COVID-19) RP-BFire Not Detect-BioFire 03/01/2023 19:55 EDT Coronavirus HKU1 (Not COVID-19) RP-BFire Not Detect-BioFire 03/01/2023 19:55 EDT Coronavirus NL63 (Not COVID-19) RP-BFire Not Detect-BioFire 03/01/2023 19:55 EDT Coronavirus OC43 (Not COVID-19) RP-BFire Not Detect-BioFire 03/01/2023 19:55 EDT SARS-CoV-2 (COVID-19) RP-BFire Not Detect-BioFire 03/01/2023 19:55 EDT Human Metapneumonovirus RespP-BFire Not Detect-BioFire 03/01/2023 19:55 EDT Human Rhinovirus/Enterovirus RespP-BFir Not Detect-BioFire 03/01/2023 19:55 EDT Influenza A RespP-BFire Not Detect-BioFire 03/01/2023 19:55 EDT Influenza B RespP-BFire Not Detect-BioFire 03/01/2023 19:55 EDT Mycomplasma pneumoniae RespP-BFire Not Detect-BioFire 03/01/2023 19:55 EDT Parainfluenza Virus 1 RespP-BFire Not Detect-BioFire 03/01/2023 19:55 EDT Parainfluenza Virus 2 RespP-BFire Not Detect-BioFire 03/01/2023 19:55 EDT Parainfluenza Virus 3 RespP-BFire Not Detect-BioFire 03/01/2023 19:55 EDT Parainfluenza Virus 4 RespP-BFire Not Detect-BioFire 03/01/2023 19:55 EDT Respiratory Syncytial Virus RespP-BFire Not Detect-BioFire 03/01/2023 19:55 EDT Employed in healthcare? Unknown 03/01/2023 19:55 EDT Symptomatic as defined by CDC? Unknown 03/01/2023 19:55 EDT Hospitalized due to COVID-19? Unknown 03/01/2023 19:55 EDT In ICU? Unknown 03/01/2023 19:55 EDT Group care resident? Unknown 03/01/2023 19:55 EDT status? Unknown 03/01/2023 19:55 EDT Electronically Signed on 03/02/23 08:43 AM Aileen Nielsen APRN Discharge summary * Keanu Wilson MD: PERFORM, MODIFY, MODIFY Event Display: Discharge Summary Authored Date: [id number] YANICK MARC :1960 Age:62 years Sex:Male Visit Date:03/01/2023 Primary Care Physician: PRAKASH ALLRED APRN [facility] Course This is a patient I am quite familiar with.?? He has multiple medical problems and is quite ill. ?? He has been seen by palliative caregivers non medical. ??He was DNR. ??He has revoked that to be full code??despite his condition worsening with a new diagnosis of a neuroendocrine tumor. ?? He has a past medical history that includes?? Hypertension, hypothyroidism, restless leg syndrome and fibromyalgia??with anxiety. ?? He has tobacco abuse with??severe COPD, oxygen dependent, emphysema. ?? He has a history of SCC of the neck with surgical??manipulation, radiation and sequelae. ?? The patient has severe alcohol disorder with Warnicke's encephalopathy. ?? As stated he has a new diagnosis of??neuroendocrine tumor in the right upper lung. He also has a collapsed left lower lung. ?? Bronchoscopy performed at [facility] on skin. ??There the neuroendocrine tumor was diagnosed. ??He also had left lower lung??collapse??which seems to be??chronic, inhabited by MRSA.?? He came in with worsening shortness of breath. ?? He had been on triple antibiotic therapy.?? Recommendation??is for him to go home with 2 weeks of Bactrim and future to treat the left lower lobe only if symptomatically. ?? Hyponatremia and alcoholism I am reluctant to use Bactrim. ??That might drive him into a severely dangerous level.?? I spoke to pulmonology about this and we decided he will go home on linezolid.?? He will finish his treatment for thrush.?? Pulmonology, pulmonology referral from PCP as needed.?? Hewill go on with his oncological treatments which will be dependent on upcoming PET scan. Significant Findings X-Ray:?? Computed Tomography: ?? CT Angio Chest ?? 03/01/23 18:35:29 PROCEDURE INFORMATION: Exam: CTA Chest With Contrast Exam date and time: 03/01/2023 6:35 PM Age: 62 years old Clinical indication: Other: Chest pain ?? TECHNIQUE: Imaging protocol: Computed tomographic angiography of the chest with contrast. 3D rendering (Not supervised by radiologist): MIP and/or 3D reconstructed images were created by the technologist. Radiation optimization: All CT scans at this facility at least one of these dose optimization techniques: automated exposure control; mA and/or kV adjustment per patient size (includes targeted exams where dose is matched to clinical indication); or iterative reconstruction. Contrast material: [id number]; Contrast volume: 100 ml; Contrast route: INTRAVENOUS (IV); ?? REPORTING DATA: Count of CT and Cardiac NM exams in prior 12 months: This patient has received 5 known CTs and 0 known cardiac nuclear medicine studies in the 12 months prior to the current study. ?? COMPARISON: CT ANGIO CHEST 01/18/2023 10:23 AM ?? FINDINGS: Pulmonary arteries: The pulmonary arteries are normal in caliber. No evidence of acute pulmonary embolism. Aorta: The aorta is normal without evidence of aneurysmal dilatation, dissection or occlusive disease. ?? Lungs: Severe centrilobular emphysematous changes are present. There is 3.4 x 2.4 x 3.4 no upshot an measurement present is pretty darn discussed with the with the good free air utilizing clean where and mid cm mass present within the apex of the right lung consistent with patient???s known history of pulmonary neoplasm. This shows increased size compared to the prior study where it measured 3 x 2.1 x 3.4 cm. There is dense consolidation and collapse of the left lower lobe of the lung posterior basilar segment likely secondary to endobronchial lesion or occlusion unchanged compared to the prior study of 01/18/2023. There is no evidence of focal pulmonary consolidation. No evidence of pulmonary parenchymal inflammatory changes. There is no evidence of pulmonary masses. Pleural spaces: There is no evidence of pneumothorax. There are no pleural effusions present. Heart: The cardiac structures are normal. The right ventricular to left ventricular ratio is normal measuring approximately 0.9. No evidence of reflux of contrast into the inferior vena cava or hepatic veins to suggest right heart strain or pulmonary hypertension. Coronary arteries: There is mild atherosclerotic calcification of the coronary arteries. Lymph nodes: There is no evidence of lymphadenopathy. ?? Bones/joints: The spine, sternum, ribs, and pectoral girdles show no evidence of acute abnormality. Soft tissues: There are no soft tissue masses or fluid collections. The upper abdominal viscera are unremarkable. ?? Other findings: The mediastinal structures are normal. ?? IMPRESSION: 1. No evidence of acute pulmonary embolism. 2. Slight increase in the size of the patient???s right upper lobe pulmonary mass. 3. Severe centrilobular emphysematous changes. 4. Chronic left lower lobe collapse likely secondary to endobronchial lesion or bronchial occlusive compression. ?? COMMENTS: In the absence of a history or active diagnosis of lung cancer, it is recommended that this patient with emphysema be evaluated for enrollment in a low dose CT lung cancer screening program. ? THIS DOCUMENT HAS BEEN ELECTRONICALLY SIGNED BY PRAKASH SORTO MD on 03/01/2023 07:37 PM ?? Signed By: Prakash Sorto MD Ultrasound:?? MRI:?? Echo:?? Mammography:?? Position Emission Tomography (PET):?? Physical Exam Vitals & Measurements T:??36.5?C ??(Temporal Artery)?? TMIN:??36.5?C ??(Temporal Artery)?? TMAX:??37.3?C ??(Temporal Artery)?? HR:??81??(Peripheral)?? RR:??22?? BP:??139/93?? SpO2:??100%?? Pain Score:??6?? O2 Flow Rate:??1?? O2 Therapy:??Nasal cannula?? =pecomplete General: Oriented x4.?? HENT: Altered anatomy, baseline.?? Lungs: Air movement is good,??near baseline, right upper quadrant rhonchi, left lower lung field decreased breath sounds.?? Heart:??Normal rate, regular rhythm, no murmur, gallop or edema. Abdomen:??Soft, non-tender, non-distended, normal bowel sounds, no masses.?? Musculoskeletal:??Normal range of motion and strength, no tenderness or swelling. Skin:??Skin is warm, dry and pink, no rashes or lesions. Neurologic:??Awake, alert and oriented X4, CN I-XII intact ?? Medications Inpatient acetaminophen, 650 mg= 20.3 mL, Oral, every 6 hr, PRN albuterol, 180 mcg= 2 puffs, Inhale, every 6 hr, PRN aspirin, 81 mg= 1 tab, Chewed, Daily baclofen, 20 mg= 2 tab, Oral, BID, PRN cetirizine, 10 mg= 1 tab, Oral, Daily, PRN enoxaparin, 40 mg= 0.4 mL, Subcutaneous, Daily folic acid, 1 mg= 1 tab, Oral, Daily guaiFENesin, 400 mg= 20 mL, Oral, every 4 hr ipratropium-albuterol 0.5 mg-2.5 mg/3 mL inhalation solution, 3 mL, NEB, every 3 hr, PRN ipratropium-albuterol 0.5 mg-2.5 mg/3 mL inhalation solution, 3 mL, NEB, every 6 hr levoFLOXacin, 750 mg= 150 mL, IV Piggyback, Daily levothyroxine, 100 mcg= 1 tab, Oral, Daily LORazepam, 1 mg= 0.5 mL, IV Push, every 1 hr, PRN magnesium oxide, 400 mg= 1 tab, Oral, Daily MiraLax, 17 g= 1 EA, Oral, Daily, PRN montelukast, 10 mg= 1 tab, Oral, Daily nystatin 100,000 units/mL oral suspension, 780263 units= 5 mL, Oral, QID ondansetron, 4 mg= 1 tab, Oral, every 8 hr, PRN pantoprazole, 40 mg= 1 EA, Oral, Daily predniSONE, 40 mg= 2 tab, Oral, Daily thiamine, 100 mg= 1 tab, Oral, Daily vancomycin Zosyn Home Albuterol (Eqv-Ventolin HFA) 90 mcg/inh inhalation aerosol, 2 puffs, Inhale, every 4 hr, PRN aspirin 81 mg oral tablet, chewable, 81 mg= 1 tab, Chewed, Daily azelastine 137 mcg/inh (0.1%) nasal spray, 2 sprays, Nasal, BID, PRN baclofen 20 mg oral tablet, 20 mg= 1 tab, Oral, BID, PRN cetirizine 10 mg oral tablet, 10 mg= 1 tab, Oral, Daily, PRN folic acid 1 mg oral tablet, 1 mg= 1 tab, Oral, every morning ipratropium-albuterol 0.5 mg-2.5 mg/3 mL inhalation solution, 3 mL, NEB, every 4 hr, PRN levothyroxine 100 mcg (0.1 mg) oral tablet, 100 mcg= 1 tab, Oral, every morning magnesium oxide 400 mg (241.3 mg elemental magnesium) oral tablet, 400 mg= 1 tab, Oral, every morning montelukast 10 mg oral tablet, 10 mg= 1 tab, Oral, every morning multivitamin adult, oral tablet, 1 tab, Oral, Daily nystatin 100,000 units/mL oral suspension, [id number] units= 5 mL, Oral, QID omeprazole 40 mg oral delayed release capsule, 40 mg= 1 cap, Oral, every morning ondansetron 4 mg oral tablet, 4 mg= 1 tab, Oral, every 8 hr, PRN [id number] oral powder for reconstitution, 17 g, Oral, Daily, PRN Symbicort 160 mcg-4.5 mcg/inh inhalation aerosol, 2 puffs, Inhale, BID thiamine 250 mg oral tablet, 250 mg= 1 tab, Oral, Daily Vitamin B12 1000 mcg oral tablet, 1000 mcg= 1 tab, Oral, Daily Vitamin B6 100 mg oral tablet, 100 mg= 1 tab, Oral, Daily Vitamin C 500 mg oral tablet, chewable, 500 mg= 1 tab, Chewed, Daily Vitamin D3 125 mcg (5000 intl units) oral tablet, disintegrating, 125 mcg= 1 tab, Oral, Daily zinc (as gluconate) 50 mg oral tablet, 25 mg= 0.5 tab, Oral, every other day zolpidem 10 mg oral tablet, 10 mg= 1 tab, Oral, every night at bedtime, PRN Procedure/Surgical History ???Cardiac catheterization???Cholecystectomy???Colonoscopy???Insertion of chest tube???Repair of umbilical hernia???Splenectomy Social History Alcohol Current, Several times per day Electronic Cigarette/Vaping Electronic Cigarette Use: Never. Home/Environment Lives with Roomate(s)/Friend(s). Living situation: Home/Independent. Home equipment: Cane. Tobacco Former tobacco user Tobacco Use:. Discharge Plan 1.??COPD with exacerbation??J44.1 Air movement appears baseline. ??Finish short burst of prednisone tomorrow. 2.??Pneumonia??J18.9 Neurology 3 times.?? Treatment for??the left lower lobe collapse with MRSA??when indicated. ??On this admission he will complete a course of linezolid.?? Pulmonology follow-up as needed per primary. 3.??Neuro-endocrine carcinoma??C7A.8 Patient has a PET scan and I believe is scheduled for radiation therapy. 4.??Oral thrush??B37.0 Complete course of nystatin. 5.??Hyponatremia??E87.1 Chronic, I did avoid Bactrim as such. 6.??GERD without esophagitis??K21.9 PPI. 7.??Alcohol abuse??F10.10 On the drivers for his hyponatremia.?Counseling, thiamine. 8.??Prediabetes??R73.03 Lifestyle modification. 9.??Leukocytosis??D72.829 Multifactorial including baseline leukocytosis, neuroendocrine tumor, and high- dose steroids most likely.?Seem to reach patrice yesterday new cultures are pending. ??Patient refuses further blood draw.?? Patient??ready to leave today. ??Will not make leave AGAINST MEDICAL ADVICE with multiple reasons for??leukocytosis as noted. ?? Time??spent on patient care today 40 minutes. Orders: predniSONE, 40 mg = 2 tab, Oral, Tab, Daily for 30 days, First Dose: 03/05/23 9:00:00 EDT, Stop Date: 04/04/23 8:59:00 EDT, Physician Stop, Routine vancomycin, 1 g = 1 EA, IV Piggyback, Injection, every 12 hr (yun), Antibiotic Indication Pneumonia- HAP/VAP, Administer over: 60 minutes, First Dose: 03/04/23 19:00:00 EDT, Physician Stop, Routine, 250 mL/hr Blood Culture, Periph Bld, Arm L, Routine collect, RT - Routine, 03/04/23 16:16:00 EDT, Once, Nursecollect, Print Label Blood Culture, Periph Bld, Arm R, Routine collect, RT - Routine, 03/04/23 16:16:00 EDT, Once, Nursecollect, Print Label Discharge Patient, 03/04/23 16:12:00 EDT, Home Independently All Diagnoses This Visit COPD with exacerbation Pneumonia Neuro-endocrine carcinoma Oral thrush Hyponatremia GERD without esophagitis Alcohol abuse Prediabetes Leukocytosis Patient Discharge Condition Stable but he does have poor prognosis going forward Discharge Disposition Patient has PET scan, radiology follow-up. ??Complete course of linezolid with PCP follow-up and pulmonology as needed. Medication Reconciliation Changed albuterol (Albuterol (Eqv-Ventolin HFA) 90 mcg/inh inhalation aerosol)2 Puffs Inhale (breathe in) every 4 hours as needed as needed for wheezing. ?? azelastine nasal (azelastine 137 mcg/inh (0.1%) nasal spray)2 Sprays Nasal (into the nose) 2 times a day as needed as needed for allergy symptoms. ?? baclofen (baclofen 20 mg oral tablet)1 tab Oral (given by mouth) 2 times a day as needed other (seecomment). NEEDED FOR NECK PAIN. ?? budesonide-formoterol (Symbicort 160 mcg-4.5 mcg/inh inhalation aerosol)2 Puffs Inhale (breathe in)2 times a day. ?? folic acid (folic acid 1 mg oral tablet)1 tab Oral (given by mouth) every morning. ?? ipratropium-albuterol (ipratropium-albuterol 0.5 mg-2.5 mg/3 mL inhalation solution)3 Milliliters Nebulized inhalation (inhale using nebulizer) every 4 hours as needed as needed for shortness of breath or wheezing. ?? levothyroxine (levothyroxine 100 mcg (0.1 mg) oral tablet)1 tab Oral (given by mouth) every morning. ?? magnesium oxide (magnesium oxide 400 mg (241.3 mg elemental magnesium) oral tablet)1 tab Oral (given by mouth) every morning. ?? montelukast (montelukast 10 mg oral tablet)1 tab Oral (given by mouth) every morning. ?? omeprazole (omeprazole 40 mg oral delayed release capsule)1 Capsules Oral (given by mouth) every morning. ?? ondansetron (ondansetron 4 mg oral tablet)1 tab Oral (given by mouth) every 8 hours as needed nausea/vomiting. ?? polyethylene glycol 3350 ([id number] oral powder for reconstitution)17 Gram Oral (given by mouth) every day as needed constipation. ?? thiamine (thiamine 250 mg oral tablet)1 tab Oral (given by mouth) every day. ?? Unchanged ascorbic acid (Vitamin C 500 mg oral tablet, chewable)1 tab Chewed every day. ?? aspirin (aspirin 81 mg oral tablet, chewable)1 tab Chewed every day. ?? cetirizine (cetirizine 10 mg oral tablet)1 tab Oral (given by mouth) every day as needed as needed for allergy symptoms. 1 Unknown. ?? cholecalciferol (Vitamin D3 125 mcg (5000 intl units) oral tablet, disintegrating)1 tab Oral (givenby mouth) every day. ?? cyanocobalamin (Vitamin B12 1000 mcg oral tablet)1 tab Oral (given by mouth) every day. ?? multivitamin (multivitamin adult, oral tablet)1 tab Oral (given by mouth) every day. ?? nystatin (nystatin 100,000 units/mL oral suspension)5 Milliliters Oral (given by mouth) 4 times a day. ?? pyridoxine (Vitamin B6 100 mg oral tablet)1 tab Oral (given by mouth) every day. ?? zinc gluconate (zinc (as gluconate) 50 mg oral tablet)0.5 tab Oral (given by mouth) every other day. ?? zolpidem (zolpidem 10 mg oral tablet)1 tab Oral (given by mouth) every night at bedtime as needed as needed for insomnia. Electronically Signed on 03/05/23 11:01 AM Keanu Wilson MD CTA Chest vessels W contrast IV * Prakash Sorto MD: VERIFY, VERIFY Event Display: Report PROCEDURE INFORMATION: Exam: CTA Chest With Contrast Exam date and time: 03/01/2023 6:35 PM Age: 62 years old Clinical indication: Other: Chest pain TECHNIQUE: Imaging protocol: Computed tomographic angiography of the chest with contrast. 3D rendering (Not supervised by radiologist): MIP and/or 3D reconstructed images were created by the technologist. Radiation optimization: All CT scans at this facility at least one of these dose optimization techniques: automated exposure control; mA and/or kV adjustment per patient size (includes targeted exams where dose is matched to clinical indication); or iterative reconstruction. Contrast material: [id number]; Contrast volume: 100 ml; Contrast route: INTRAVENOUS (IV); REPORTING DATA: Count of CT and Cardiac NM exams in prior 12 months: This patient has received 5 known CTs and 0 known cardiac nuclear medicine studies in the 12 months prior to the current study. COMPARISON: CT ANGIO CHEST 01/18/2023 10:23 AM FINDINGS: Pulmonary arteries: The pulmonary arteries are normal in caliber. No evidence of acute pulmonary embolism. Aorta: The aorta is normal without evidence of aneurysmal dilatation, dissection or occlusive disease. Lungs: Severe centrilobular emphysematous changes are present. There is 3.4 x 2.4 x 3.4 no upshot an measurement present is pretty darn discussed with the with the good free air utilizing clean where and mid cm mass present within the apex of the right lung consistent with patient's known history of pulmonary neoplasm. This shows increased size compared to the prior study where it measured 3 x 2.1 x 3.4 cm. There is dense consolidation and collapse of the left lower lobe of the lung posterior basilar segment likely secondary to endobronchial lesion or occlusion unchanged compared to the prior study of 01/18/2023. There is no evidence of focal pulmonary consolidation. No evidence of pulmonary parenchymal inflammatory changes. There is no evidence of pulmonary masses. Pleural spaces: There is no evidence of pneumothorax. There are no pleural effusions present. Heart: The cardiac structures are normal. The right ventricular to left ventricular ratio is normal measuring approximately 0.9. No evidence of reflux of contrast into the inferior vena cava or hepatic veins to suggest right heart strain or pulmonary hypertension. Coronary arteries: There is mild atherosclerotic calcification of the coronary arteries. Lymph nodes: There is no evidence of lymphadenopathy. Bones/joints: The spine, sternum, ribs, and pectoral girdles show no evidence of acute abnormality. Soft tissues: There are no soft tissue masses or fluid collections. The upper abdominal viscera are unremarkable. Other findings: The mediastinal structures are normal. IMPRESSION: 1. No evidence of acute pulmonary embolism. 2. Slight increase in the size of the patient's right upper lobe pulmonary mass. 3. Severe centrilobular emphysematous changes. 4. Chronic left lower lobe collapse likely secondary to endobronchial lesion or bronchial occlusive compression. COMMENTS: In the absence of a history or active diagnosis of lung cancer, it is recommended that this patient with emphysema be evaluated for enrollment in a low dose CT lung cancer screening program. THIS DOCUMENT HAS BEEN ELECTRONICALLY SIGNED BY PRAKASH SORTO MD on 03/01/2023 07:37 PM Final Signed by: Prakash Sorto MD Signed (Electronic Signature): 03/01/2023 7:37 pm Patient Care team information Care Team Personnel Name: BRIGIDA PURCELL PRAKASH MIREYA Position: No Access Member Role: Primary Care Physician Address: Address: [address] [place] [id number] [place] Name: Reanna Swann Position: Nurse Member Role: ED Nurse Name: Bruno Mcguire MD Position: Physician Member Role: ED Physician Address: Address: [facility] EMERGENCY DEPT [address] [place] [id number] Name: Dede Lyons Position: Nurse Member Role: ED Nurse Care Team Related Persons Name: ANDRESSA MARC Address: Home [address] [place] [address] [facility] Name: GARRICK PASTRANA Address: Home [address], [place] [id number] [facility] Address: Mailing [address] [place] [phone]
[2023-03-13 21:44] LABS: TSH (W/Ref FT4) 1.56 uIU/mL (0.36-3.74)
[2023-03-13] MEDS: Enoxaparin 40 MG/0.4 ML SYR SC (22:35)
[2023-03-14] VITALS (9 sets, daily range): BP systolic 135–156; BP diastolic 84–96; PULSE 89–114; RESP 16–20; TEMP 36.3–36.9; O2SAT 93–100; BMI 16.7
--- NOTE | 2023-03-14 | DI.CT_ITS ---
Exam(s) CT HEAD WO EXAM: CT HEAD WO CLINICAL HISTORY: headache, h/o malignancy. TECHNIQUE: Imaging Protocol: Axial computed tomography images with coronal and sagittal reformatted images were created and reviewed COMPARISON: No exams were available for comparison FINDINGS: Ventricles and Extra axial spaces: Normal in size and morphology for the patient's age. Hemorrhage: None. Cerebral parenchyma: Atrophy, somewhat disproportionate for the patient's age. No evidence mass or i nfarct.. Midline shift: None. Brainstem/Cerebellum: Normal. Calvarium: Normal. Visualized Paranasal sinuses/Mastoids: Large, invasive mass partially included in the field of view i nvolving the left maxillary sinus and extending posteriorly to the spine. This lateral extent is to the level of the mandible. There is no visible destruction of the mandible. The posterior wall of t he left maxillary sinus and pterygoid plates as well as portions of the ethmoid sinuses are eroded. There is some mass effect on the nasopharynx. There is no definite invasion into the brain or orbits . There is some opacification of the ethmoid sinuses and sphenoid sinus. Soft Tissues: Orbits are unremarkable. IMPRESSION: Large invasive mass partially included in the field of view extending from the left maxillary sinus p osterior to the spine. No visible brain metastases. RADIATION DOSE DELIVERED: 719.95mGy.cm Total DLP DATA REPOSITORY: All CT scans at this facility are submitted to the National Radiology Data Registry (NRDR) Dose Index Registry (DIR) with the [employer] (ACR). RADIATION OPTIMIZATION: All CT scans at this facility use at least one of these dose optimization te chniques: automated exposure control; mA and/or kV adjustment per patient size (includes targeted exa ms where dose is matched to clinical indication); or iterative reconstruction.
[2023-03-14] MEDS: POTASSIUM CHLORIDE/0.9% NACL 1,000 ML 125 MEQ IV ×2 (00:06→08:59)
[2023-03-14] MEDS: Acetaminophen 325 MG TAB PO ×2 (00:07→04:32)
[2023-03-14] MEDS: Albuterol HFA 8 GM 60 PUFF INH IH ×4 (01:30→13:15)
[2023-03-14] MEDS: Levothyroxine 100 MCG TAB PO (05:09)
[2023-03-14] MEDS: CEFEPIME 1 GM in Normal Saline 50 ML IVPB ×2 (05:10→14:40)
[2023-03-14 06:47] LABS: HCT 28.3 % (40.0-50.0); HGB 9.5 g/dL (13.5-17.5); MCHC 33.6 % (32.0-36.0); MCV 93 fL (80-95); MPV 9.6 fL (8.0-11.0); Platelet Count 412 10^3/uL (130-400); RBC 3.06 10^6/uL (4.36-5.78); RDW 15.7 % (11.8-14.1); RDW-SD 51.8 fL
[2023-03-14 06:50] LABS: WBC 25.18 10^3/uL (4.4-10.8)
[2023-03-14 07:07] LABS: ALT 16 U/L (16-63); AST 19 U/L (15-37); Albumin 2.6 g/dL (3.4-5.0); Alkaline Phosphatase 107 U/L (46-116); BUN 7 mg/dL (7-18); Bilirubin, Total 0.3 mg/dL (0.2-1.0); CREATININE 0.8 mg/dL (0.70-1.30); Calcium 9.4 mg/dL (8.5-10.1); Chloride 94 mmol/L (98-107); Estimated GFR 101.32 (mL/min/1.73m2); Glucose 97 mg/dL (74-106); Magnesium 1.4 mg/dL (1.8-2.4); Potassium 3.5 mmol/L (3.5-5.1); Sodium 128 mmol/L (136-145); Total Protein 6.7 g/dL (6.4-8.2)
[2023-03-14 07:14] LABS: NT-proBNP 843 pg/mL (<300); PHOSPHORUS 3.1 mg/dL (2.6-4.7)
--- NOTE | 2023-03-14 08:00 | DI.US_ITS ---
APPROVED REPORT EXAM: Comprehensive 2D, Doppler, and color-flow Echocardiogram Patient Location: In-Patient Room/Bed: 231 Mdm Sr: Kat Feng RDCS (AE) Indications: Hypoxemia with elevate BNP, COPD Other Information Study Quality: Fair. Technically limited study due to body habitus, lung disease. Conclusion Normal left ventricular wall thickness and chamber size. Ejection fraction is 55%. Wall motion is n ormal Right ventricular size and systolic systolic function appear normal Both atria are normal in size There are no structural valvular abnormalities Mild mitral regurgitation Right ventricular systolic pressure could not be estimated Wall motion Left Ventricle Low parasternal imaging. The overall left ventricular systolic function appears normal. There is norm al left ventricular wall thickness. There is normal LV segmental wall motion. There is no ventricular septal defect visualized. LVEF is 55%. Right Ventricle Right ventricle is grossly normal in size. Right ventricular systolic function is grossly normal. Atria The left atrium size is normal. The right atrium size is normal. The interatrial septum is intact wit h no evidence for an atrial septal defect. Aortic Valve The aortic valve is normal in structure. There is no aortic valvular stenosis. No aortic regurgitatio n is present. Mitral Valve The mitral valve is normal in structure. No evidence of mitral valve stenosis. Mild mitral regurgita tion. Tricuspid Valve The tricuspid valve is normal in structure. There is no tricuspid valve stenosis. Trace tricuspid reg urgitation. Unable to assess PA pressure. Pulmonic Valve The pulmonary valve is normal in structure. There is no pulmonic valvular stenosis. There is no pulmo gio valvular regurgitation. Great Vessels The aortic root is normal in size. Ascending aorta is not well visualized. Aortic arch is not well vi sualized. IVC is normal in size and collapses >50% with inspiration. Pericardium There is no pericardial effusion. 2D Dimensions IVSD d PLAX 1.11 cm M: 0.6-1.2 LV Vol A2C d MOD 119.4 mL LVPW d PLAX 1.13 cm M: 0.6 - 1.2 LV Vol A4C d MOD 126.2 mL LVID d PLAX 5.21 cm M: 4.2 - 5.8 LV EF A4C MOD 50.3 % LVDs 3.80 cm M: 2.5 - 4.0 LV EF A2C MOD 55.1 % Ao Root d 3.49 cm M: 3.1 - 3.7 LV EF Biplane MOD 52.0 % RA Area A4C 14.86 cm2 SV 65.83 mL RA Vol/ BSA A4C s A-L 23.9 mL/m2 SV Index 37.99 mL/m2 LV EF Teichholz 51.6 % LVEF (Lebron's) 51.95 % M: 52 - 72 LV Volume 99.92 mL M: 62 - 150 LV Volume Index 57.75 mL/m2 M: 34 - 74 LV Vol Biplane MOD 126.7 mL FS 26.55 % M-Mode TAPSE 2.44 cm (M/F) >1.7 LV Diastology MV E' lateral 0.147 (>0.1 m/s) E/A Ratio 0.6 LV E/e LAT 2.80 (<14) MV E Vmax 0.41 (0.4-1.3 m/s) MV E/E' lateral 2.81 MV A Vmax 0.70 (0.4-1.3 m/s) MV E/A Ratio 0.56 Aortic Valve LVOT Area 3.54 cm2 AoV Area Vmax 2.79 cm2 LVOT Vmax 0.79 m/s AoV Area/ BSA (Vmax) 1.61 cm2/m2 LVOT Mean Best. 0.50 m/s SARA Mean Best. 2.54 cm2 LVOT Peak Grad 2.5 mmHg SARA Mean Best. Index 1.46 cm2/m2 LVOT Mean Grad 1.2 mmHg LVOT VTI 0.114 m LVOT Diam s 2.10 cm AoV Vmax 1.00 m/s Velocity Ratio 0.79 AoV Mean Best. 0.70 m/s AoV Peak Grad 4.0 mmHg LVOT SV 40.51 mL AoV Mean Grad 2.2 mmHg AoV VTI 0.155 m AoV Area VTI 2.61 cm2 AoV Area/ BSA (VTI) 1.50 cm/m2 Mitral Valve MV DT 257 (160-240 msec) MV PHT 74 msec MV Area PHT 2.96 cm2 Pulmonary Valve PV Vmax 0.90 (0.5-1.5 m/s) RVOT Peak Gr. 2.37 mmHg PV Peak Grad 3.2 mmHg RVOT Mean Gr. 0.85 mmHg PV Mean Grad 1.7 mmHg RVOT VTI 0.127 m PV VTI 0.145 m RVOT Vmax 0.77 m/s
[2023-03-14] MEDS: Budesonide/Formoterol 80/4.5 6.9 GM 60 PUFF INH IH (08:35)
[2023-03-14] MEDS: Aspirin E.C. 81 MG TABEC PO (08:57)
[2023-03-14] MEDS: Baclofen 10 MG TAB 20 MG PO (08:57)
[2023-03-14] MEDS: Cyanocobalamin 500 MCG TAB 1000 MCG PO (08:58)
[2023-03-14] MEDS: Folic Acid 1 MG TAB PO (08:58)
[2023-03-14] MEDS: Thiamine 100 MG TAB PO (08:59)
[2023-03-14] MEDS: Ascorbic Acid 500 MG TAB PO (08:59)
[2023-03-14] MEDS: Lidocaine 5% Patch 1 PATCH TD (09:00)
--- NOTE | 2023-03-14 10:26 | PDOC.CMIN ---
Date of service: 03/14/23 Time of Service: 10:27 Care Management Initial Assmt Initial Assessment REASON FOR HOSPITALIZATION:: [facility] Pneumonia, hypoxemia PREVIOUS FUNCTIONAL STATUS/SOCIAL/FAMILY SUPPORTS:: Zak lives in [place], [place]. He rents a room from a friend, Tim, who he states is supportive. He has some family nearby who are also supportive. He is currently receiving cancer treatments at [facility] in [facility]. CURRENT FUNCTIONAL STATUS:: Zak was sitting up in bed when CM met with him. He stated that he is feeling ok today. He reported that he was at [facility], at his first appointment for his new diagnosis of lung cancer, and he was sent the the ED from there. He stated that he is currently on 4LO2, which is his baseline. He has support at home from his friend who he rents a room from, but he is generally very independent. CM will continue to follow. ADVANCE DIRECTIVES:: Not on file. Palliative Care consulted. Has patient been provided with info about the portal/API?: Yes Did the patient sign up for the portal?: No CODE STATUS:: Full Code INSURANCE COVERAGE / FINANCIAL ISSUES:: [employer] CURRENT HOME/COMMUNITY SERVICES/EQUIPMENT:: [facility] PRIMARY CARE PHYSICIAN:: Chanda Kaplan POTENTIAL DISCHARGE NEEDS:: Evaluations for further needs, follow up appointments. PATIENT/FAMILY EDUCATION NEEDS:: Review discharge instructions and limitations, discussion of self care needs including ask me three. ANTICIPATED BARRIERS TO DISCHARGE:: None identified. TRANSPORTATION:: Via private vehicle by family. PLAN:: Anticipate Zak will return home when medically cleared. His family will transport him home via private vehicle. He will follow up with his PCP and his discharge plan of care. CM will continue to follow. 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
[2023-03-14] MEDS: MORPHine 2 MG/ML SYR IVP (10:55)
[2023-03-14] MEDS: Normal Saline Flush 10 ML SYR IVP (10:57)
[2023-03-14] MEDS: MAGNESIUM SULFATE 4 GM/100 ML BAG IVPB (10:57)
[2023-03-14 11:20] LABS: Procalcitonin 0.5 ng/mL
[2023-03-14 11:30] LABS: Lab Add On Test DONE
--- NOTE | 2023-03-14 11:37 | W.PM.PROGNOT ---
Date of Service Date of service: 03/14/23 Time of Service: 11:37 Subjective Subjective Interval history since last seen: radha blood coming out of his mouth suddenly this afternoon approx 1620, states this has happened on 3 other times. denies dizziness, chest pain or no increased shortness of breath. Exam Const General: cooperative, frail appearing and ill appearing acutely Nutritional Appearance: cachectic Orientation: alert, awake and oriented x3 HENMT Head: normal to inspection Mouth: other (unable to evaluate d/t active bleeding) Objective Last Vital Signs Temp 36.7 C 03/14/23 07:30 Pulse 97 H 03/14/23 07:30 Resp 16 03/14/23 07:30 BP 146/85 H 03/14/23 07:30 Pulse Ox 95 03/14/23 08:36 Laboratory Results - last 24 hr 03/13/23 03/13/23 03/13/23 08:25 15:00 15:00 WBC 26.49 H* RBC 3.20 L Hgb 9.9 L Hct 28.5 L MCV 89 MCH 30.9 MCHC 34.7 RDW 15.4 H Plt Count 519 H MPV 8.5 Immature Gran % 0.0 Neutrophils % 84.0 Band Neutrophils % 8 Lymphocytes % 3.0 Monocytes % 5.0 Eosinophils % 0.0 Basophils % 0.0 Nucleated RBC % 0.0 Absolute Neutrophils 24.37 H Absolute Lymphocytes 0.79 L Absolute Monocytes 1.32 H Absolute Eosinophils 0.00 Absolute Basophils 0.00 RBC Morphology Normal PT INR APTT VBG pH VBG pCO2 VBG pO2 VBG HCO3 VBG Total CO2 VBG O2 Saturation VBG Base Excess VBG Lactate Sodium 126 L Potassium 3.4 L Chloride 87 L Carbon Dioxide 31.7 Anion Gap 7.3 BUN 7 Creatinine 0.7 Est GFR (CKD-EPI 2020) 105.49 Glucose 97 Calcium 9.7 Phosphorus Magnesium Total Bilirubin 0.5 AST 19 ALT 18 Alkaline Phosphatase 113 Troponin I < 50 < 50 NT-Pro-B Natriuret Pep 1098 H Total Protein 7.5 Albumin 2.9 L Procalcitonin TSH COVID-19 Source SARS-CoV-2 (PCR) Influenza Type A (PCR) Influenza Type B (PCR) RSV (PCR) Add-On Test Request 03/13/23 03/13/23 03/13/23 15:00 17:40 17:40 WBC RBC Hgb Hct MCV MCH MCHC RDW Plt Count MPV Immature Gran % Neutrophils % Band Neutrophils % Lymphocytes % Monocytes % Eosinophils % Basophils % Nucleated RBC % Absolute Neutrophils Absolute Lymphocytes Absolute Monocytes Absolute Eosinophils Absolute Basophils RBC Morphology PT 10.1 INR 1.0 APTT 30.2 VBG pH 7.33 VBG pCO2 60 H VBG pO2 35 VBG HCO3 32 H VBG Total CO2 31 H VBG O2 Saturation 56 VBG Base Excess 6 H VBG Lactate 1.3 Sodium Potassium Chloride Carbon Dioxide Anion Gap BUN Creatinine Est GFR (CKD-EPI 2020) Glucose Calcium Phosphorus Magnesium Total Bilirubin AST ALT Alkaline Phosphatase Troponin I NT-Pro-B Natriuret Pep Total Protein Albumin Procalcitonin TSH COVID-19 Source SARS-CoV-2 (PCR) Influenza Type A (PCR) Influenza Type B (PCR) RSV (PCR) Add-On Test Request 03/13/23 03/13/23 03/14/23 17:40 20:05 06:15 WBC RBC Hgb Hct MCV MCH MCHC RDW Plt Count MPV Immature Gran % Neutrophils % Band Neutrophils % Lymphocytes % Monocytes % Eosinophils % Basophils % Nucleated RBC % Absolute Neutrophils Absolute Lymphocytes Absolute Monocytes Absolute Eosinophils Absolute Basophils RBC Morphology PT INR APTT VBG pH VBG pCO2 VBG pO2 VBG HCO3 VBG Total CO2 VBG O2 Saturation VBG Base Excess VBG Lactate Sodium Potassium Chloride Carbon Dioxide Anion Gap BUN Creatinine Est GFR (CKD-EPI 2020) Glucose Calcium Phosphorus 3.1 Magnesium Total Bilirubin AST ALT Alkaline Phosphatase Troponin I NT-Pro-B Natriuret Pep 843 H Total Protein Albumin Procalcitonin TSH 1.56 COVID-19 Source Nasopharynx SARS-CoV-2 (PCR) Negative Influenza Type A (PCR) Negative Influenza Type B (PCR) Negative RSV (PCR) Negative Add-On Test Request 03/14/23 03/14/23 03/14/23 06:15 06:15 06:15 WBC 25.18 H* RBC 3.06 L Hgb 9.5 L Hct 28.3 L MCV 93 D MCH 31.0 MCHC 33.6 RDW 15.7 H Plt Count 412 H MPV 9.6 Immature Gran % Neutrophils % Band Neutrophils % Lymphocytes % Monocytes % Eosinophils % Basophils % Nucleated RBC % Absolute Neutrophils Absolute Lymphocytes Absolute Monocytes Absolute Eosinophils Absolute Basophils RBC Morphology PT INR APTT VBG pH VBG pCO2 VBG pO2 VBG HCO3 VBG Total CO2 VBG O2 Saturation VBG Base Excess VBG Lactate Sodium 128 L Potassium 3.5 Chloride 94 L Carbon Dioxide 28.0 Anion Gap 6.0 BUN 7 Creatinine 0.8 Est GFR (CKD-EPI 2020) 101.32 Glucose 97 Calcium 9.4 Phosphorus Magnesium 1.4 L Total Bilirubin 0.3 AST 19 ALT 16 Alkaline Phosphatase 107 Troponin I NT-Pro-B Natriuret Pep Total Protein 6.7 Albumin 2.6 L Procalcitonin TSH COVID-19 Source SARS-CoV-2 (PCR) Influenza Type A (PCR) Influenza Type B (PCR) RSV (PCR) Add-On Test Request DONE 03/14/23 06:15 WBC RBC Hgb Hct MCV MCH MCHC RDW Plt Count MPV Immature Gran % Neutrophils % Band Neutrophils % Lymphocytes % Monocytes % Eosinophils % Basophils % Nucleated RBC % Absolute Neutrophils Absolute Lymphocytes Absolute Monocytes Absolute Eosinophils Absolute Basophils RBC Morphology PT INR APTT VBG pH VBG pCO2 VBG pO2 VBG HCO3 VBG Total CO2 VBG O2 Saturation VBG Base Excess VBG Lactate Sodium Potassium Chloride Carbon Dioxide Anion Gap BUN Creatinine Est GFR (CKD-EPI 2020) Glucose Calcium Phosphorus Magnesium Total Bilirubin AST ALT Alkaline Phosphatase Troponin I NT-Pro-B Natriuret Pep Total Protein Albumin Procalcitonin 0.5 TSH COVID-19 Source SARS-CoV-2 (PCR) Influenza Type A (PCR) Influenza Type B (PCR) RSV (PCR) Add-On Test Request
[2023-03-14] MEDS: VANCOMYCIN/WATER (PEG) 750 MG/150 ML BAG 150 MG IV (12:56)
--- NOTE | 2023-03-14 13:09 | NUR.NOTE ---
Tele order complete on pt. Tried to call ICU to make them aware. No answer x2.
--- NOTE | 2023-03-14 13:27 | RESPIRATORY ---
RT Assessment Start: 03/14/23 09:01 Freq: .q shift and prn Status: Active Protocol: Document 03/14/23 13:18 RT.[email or web address] (Rec: 03/14/23 13:27 [email or web address].[email or web address] [id number]) RT Assessment Pulmonary History Pulmonary History COPD Smoking History Smoking/Tobacco Use Status Former Tobacco Use Tobacco: How many years used 40 Quit Date 03/13/18 Tobacco Type cigarettes,cigars Packs per Day 2 Years smoked 40 Smoking packs per day 2 OXYGEN HISTORY: Supplemental O2 At Rest 3 With Exertion 4 CPAP Can use home machine No BIPAP Can you home machine No Trilogy/AVAPS Can use home machine No DME/Compliance DME [facility] Compliance yes Current Respiratory Symptoms Current Respiratory Symptoms Chest Pain,Cough,Shortness of breath,Sputum production, Wheezing Activity Activity Level Basic house keeping/hygiene tasks (cooking, laundry, showering) Respiratory Breath Sounds Breath Sounds Any abnormal sounds, decreased breath sounds Response Mild response,subjective improvement Pulse Rate >100 Respiratory Rate 18-25 Shortness of Breath On exertion Respiratory Therapy Score Total 5 Assessment and Plan RT Treatment Protocol Bronchodilator Aerosol Therapy Protocol,Lung Expansion Therapy Protocol,Bronchial Hygiene Therapy Protocol Note Continue home med regimen ( albuterol and symbicort). Discussed deep breathing/ coughing, provided instruction on IS and Acapella therapy.
--- NOTE | 2023-03-14 14:30 | W.PALLCONSUL ---
Date of service: 03/14/23 Time of Service: 14:30 History of Present Illness Narrative: Zak was seen in his room at the hospital. He is familiar with palliative, he has been seen by Dr. Watson, Palliative in [place]. He lives in [place] and normally receives care in [place]. He was admitted to [facility] from the cancer center. He reports that he was on hospice in the past for a different cancer (likely head and neck). He is currently beginning treatment for lung cancer. Discussed CODE status briefly. He wishes to remain a FULL CODE at this time. States he has AD. He knows he can talk about this with Dr. Watson. He has a daughter in [place] and a son but he is not clear where his son is right now. 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. Palliative was consulted to discuss goals of care. Zak reports that he is connected with Palliative in [place], Dr. Watson, near his home. He reports that he has been on hospice in the past and is familiar with how hospice works. He wishes to remain a full code at this time. He is aware he can discuss with Dr. Watson. He will follow up with Palliative in [place]. He is advised that he can also reach out to the [facility] Palliative office with any questions of concerns. Review of Systems Narrative: He reports that he is feeling better than he was at the time of admission. 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 Appears older than stated age. Is able to engage in conversation and answer questions appropriately. HEENT: Normocephalic, atraumatic, EOMI, mucous membranes moist. Respiratory: Respirations appear even and unlabored. Extremities: Moves all extremities freely. Results Last Vital Signs Temp 36.3 C L 03/14/23 11:35 Pulse 89 03/14/23 11:35 Resp 18 03/14/23 11:35 BP 156/93 H 03/14/23 11:35 Pulse Ox 100 03/14/23 11:35 Labs 03/14/23 16:51 03/14/23 16:51 Labs: Laboratory Results - last 24 hr 03/13/23 03/13/23 03/13/23 08:25 15:00 15:00 WBC 26.49 H* RBC 3.20 L Hgb 9.9 L Hct 28.5 L MCV 89 MCH 30.9 MCHC 34.7 RDW 15.4 H Plt Count 519 H MPV 8.5 Immature Gran % 0.0 Neutrophils % 84.0 Band Neutrophils % 8 Lymphocytes % 3.0 Monocytes % 5.0 Eosinophils % 0.0 Basophils % 0.0 Nucleated RBC % 0.0 Absolute Neutrophils 24.37 H Absolute Lymphocytes 0.79 L Absolute Monocytes 1.32 H Absolute Eosinophils 0.00 Absolute Basophils 0.00 RBC Morphology Normal PT INR APTT VBG pH VBG pCO2 VBG pO2 VBG HCO3 VBG Total CO2 VBG O2 Saturation VBG Base Excess VBG Lactate Sodium 126 L Potassium 3.4 L Chloride 87 L Carbon Dioxide 31.7 Anion Gap 7.3 BUN 7 Creatinine 0.7 Est GFR (CKD-EPI 2020) 105.49 Glucose 97 Calcium 9.7 Phosphorus Magnesium Total Bilirubin 0.5 AST 19 ALT 18 Alkaline Phosphatase 113 Troponin I < 50 < 50 NT-Pro-B Natriuret Pep 1098 H Total Protein 7.5 Albumin 2.9 L Procalcitonin TSH COVID-19 Source SARS-CoV-2 (PCR) Influenza Type A (PCR) Influenza Type B (PCR) RSV (PCR) Add-On Test Request 03/13/23 03/13/23 03/13/23 15:00 17:40 17:40 WBC RBC Hgb Hct MCV MCH MCHC RDW Plt Count MPV Immature Gran % Neutrophils % Band Neutrophils % Lymphocytes % Monocytes % Eosinophils % Basophils % Nucleated RBC % Absolute Neutrophils Absolute Lymphocytes Absolute Monocytes Absolute Eosinophils Absolute Basophils RBC Morphology PT 10.1 INR 1.0 APTT 30.2 VBG pH 7.33 VBG pCO2 60 H VBG pO2 35 VBG HCO3 32 H VBG Total CO2 31 H VBG O2 Saturation 56 VBG Base Excess 6 H VBG Lactate 1.3 Sodium Potassium Chloride Carbon Dioxide Anion Gap BUN Creatinine Est GFR (CKD-EPI 2020) Glucose Calcium Phosphorus Magnesium Total Bilirubin AST ALT Alkaline Phosphatase Troponin I NT-Pro-B Natriuret Pep Total Protein Albumin Procalcitonin TSH COVID-19 Source SARS-CoV-2 (PCR) Influenza Type A (PCR) Influenza Type B (PCR) RSV (PCR) Add-On Test Request 03/13/23 03/13/23 03/14/23 17:40 20:05 06:15 WBC RBC Hgb Hct MCV MCH MCHC RDW Plt Count MPV Immature Gran % Neutrophils % Band Neutrophils % Lymphocytes % Monocytes % Eosinophils % Basophils % Nucleated RBC % Absolute Neutrophils Absolute Lymphocytes Absolute Monocytes Absolute Eosinophils Absolute Basophils RBC Morphology PT INR APTT VBG pH VBG pCO2 VBG pO2 VBG HCO3 VBG Total CO2 VBG O2 Saturation VBG Base Excess VBG Lactate Sodium Potassium Chloride Carbon Dioxide Anion Gap BUN Creatinine Est GFR (CKD-EPI 2020) Glucose Calcium Phosphorus 3.1 Magnesium Total Bilirubin AST ALT Alkaline Phosphatase Troponin I NT-Pro-B Natriuret Pep 843 H Total Protein Albumin Procalcitonin TSH 1.56 COVID-19 Source Nasopharynx SARS-CoV-2 (PCR) Negative Influenza Type A (PCR) Negative Influenza Type B (PCR) Negative RSV (PCR) Negative Add-On Test Request 03/14/23 03/14/23 03/14/23 06:15 06:15 06:15 WBC 25.18 H* RBC 3.06 L Hgb 9.5 L Hct 28.3 L MCV 93 D MCH 31.0 MCHC 33.6 RDW 15.7 H Plt Count 412 H MPV 9.6 Immature Gran % Neutrophils % Band Neutrophils % Lymphocytes % Monocytes % Eosinophils % Basophils % Nucleated RBC % Absolute Neutrophils Absolute Lymphocytes Absolute Monocytes Absolute Eosinophils Absolute Basophils RBC Morphology PT INR APTT VBG pH VBG pCO2 VBG pO2 VBG HCO3 VBG Total CO2 VBG O2 Saturation VBG Base Excess VBG Lactate Sodium 128 L Potassium 3.5 Chloride 94 L Carbon Dioxide 28.0 Anion Gap 6.0 BUN 7 Creatinine 0.8 Est GFR (CKD-EPI 2020) 101.32 Glucose 97 Calcium 9.4 Phosphorus Magnesium 1.4 L Total Bilirubin 0.3 AST 19 ALT 16 Alkaline Phosphatase 107 Troponin I NT-Pro-B Natriuret Pep Total Protein 6.7 Albumin 2.6 L Procalcitonin TSH COVID-19 Source SARS-CoV-2 (PCR) Influenza Type A (PCR) Influenza Type B (PCR) RSV (PCR) Add-On Test Request DONE 03/14/23 06:15 WBC RBC Hgb Hct MCV MCH MCHC RDW Plt Count MPV Immature Gran % Neutrophils % Band Neutrophils % Lymphocytes % Monocytes % Eosinophils % Basophils % Nucleated RBC % Absolute Neutrophils Absolute Lymphocytes Absolute Monocytes Absolute Eosinophils Absolute Basophils RBC Morphology PT INR APTT VBG pH VBG pCO2 VBG pO2 VBG HCO3 VBG Total CO2 VBG O2 Saturation VBG Base Excess VBG Lactate Sodium Potassium Chloride Carbon Dioxide Anion Gap BUN Creatinine Est GFR (CKD-EPI 2020) Glucose Calcium Phosphorus Magnesium Total Bilirubin AST ALT Alkaline Phosphatase Troponin I NT-Pro-B Natriuret Pep Total Protein Albumin Procalcitonin 0.5 TSH COVID-19 Source SARS-CoV-2 (PCR) Influenza Type A (PCR) Influenza Type B (PCR) RSV (PCR) Add-On Test Request
[2023-03-14] MEDS: Tranexamic Acid 650 MG TAB UD (16:45)
[2023-03-14 17:16] LABS: HCT 28.6 % (40.0-50.0); HGB 9.9 g/dL (13.5-17.5); MCH 31.7 pg (27.0-33.0); MCHC 34.6 % (32.0-36.0); MCV 92 fL (80-95); MPV 8.4 fL (8.0-11.0); Platelet Count 499 10^3/uL (130-400); RBC 3.12 10^6/uL (4.36-5.78); RDW 15.9 % (11.8-14.1); RDW-SD 52.3 fL
[2023-03-14] MEDS: Ondansetron 4 MG/2 ML VIAL IVP (17:17)
[2023-03-14 17:24] LABS: WBC 27.19 10^3/uL (4.4-10.8)
[2023-03-14 17:25] LABS: Prothrombin Time 9.8 sec (9.3-11.0)
--- NOTE | 2023-03-14 17:28 | W.PM.DS.N ---
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 (6) Hyponatremia: Status: Chronic (7) Hypokalemia: Status: Acute (8) Alcohol abuse, daily use: Status: Chronic (9) Leukocytosis (leucocytosis): Status: Chronic (10) Wernicke encephalopathy syndrome: Status: Chronic Discharge Plan Disposition Patient Disposition: Transfer-Acute Inpatient Care Specific Acute Inpt Facility: [facility] Condition: Serious Discharge Details Reason For Visit: HCA Pneumonia, Hypoxemia Admit Date/Time: 03/13/23 19:31 Admit Provider: Esteban Huerta Attending Provider: Esteban Huerta Primary Care Provider: Le[place],[facility] Course Hospital Course: Mr Marc is a 62 year old male with PMHx of Head and neck cancer s/p XRT (reportedly), as well as 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, COPD (not oxygen dependent), and ongoing alcohol abuse, who was referred to [facility] ED from [email or web address] after presenting there hypoxic to 60s and 70s on room air. He was reporting worsening chest pain and shortness of breath as well as episodes of hemoptysis. He was initiated on nasal canula, transitioned to nonrebreather as he was tachypneic and speaking in short sentences. PE was ruled out with a negative CTA, but pneumonia was suspected. The patient was initiated on empiric antibiotics for HCAP coverage (vancomycin, cefepime, azithromycin). Hospitalist admission was requested. At this point, he was transitioned back to nasal canula. He met with palliative care and continued to want to remain full code and pursue aggressive treatment. The patient was doing well until he suddenly developed hemorrhage from his mouth without coughing or vomiting. The blood was bright red in appearance and was flowing passively out of his mouth. The patient was ordered iced water + TXA rinses as well as IV TXA. The patient did not do well with TXA rinses - had difficulty given his anatomy. The bleeding did resolve. As [facility] does not have ENT in-house, ER provider was asked to evaluate the patient for a possible intubation while he was being transferred to the ICU and arrangements were being made for transfer to a tertiary care facility/[facility] where ENT would be available. The patient appears to have bled from the mass located at the junction of his soft and hard palates. [facility] ENT called back, felt the patient had a sentinel bleed and was at a high risk of recurrence and would benefit from transfer to [facility] surgical ICU under the ENT team. He was accepted in transfer by Dr Momin. The patient was recommended to be intubated prior to transfer and for the wound to be packed with TXA-soaked material. General surgery and anesthesia took the patient to the OR for intubation due to the high risk of conversion to a surgical airway. The patient was intubated uneventfully without recurrence of bleeding, and was packed with combat gauze rather than TXA-soaked packing. He is on sedation with propofol. He is now felt stable for transfer, but will need an ABG and CXR upon arrival to [facility] as we did not have time to obtain these studies prior to the patient's departure. Prior to the patient's intubation, I did discuss with him that his prognosis was poor, and he still wanted to remain full code and to be intubated. He had also asked me to talk to his sister Cathy ([phone]) whom I updated on the patient's condition. We appreciate the assistance of the [facility] ENT team and wish the patient well. Total Critical Care Time spent on care for patient, documentation, and coordination of transfer was 60 minutes. Please, look at MAR for the list of inpatient medications. The list of medications below reflects his outpatient prescriptions. Home Meds and New Rx's Prescriptions: No Action albuterol sulfate [Ventolin HFA] 90 mcg/actuation Hfa Aerosol Inhaler 90 mcg INHALATION Q4H ipratropium-albuterol [DuoNeb] 0.5 mg-3 mg(2.5 mg base)/3 mL Solution For Nebulization 3 ml INHALATION Q4H PRN cyanocobalamin (vitamin B-12) 1,000 mcg Tablet 1,000 mcg PO DAILY aspirin 81 mg Tablet,Delayed Release (Dr/Ec) 81 mg PO 1XD baclofen 20 mg Tablet 20 mg PO BID levothyroxine 100 mcg Tablet 100 mcg PO 1XD ascorbic acid (vitamin C) 500 mg Tablet 500 mg PO 1XD lidocaine [Lidoderm] 5 % Adhesive Patch,Medicated 1 patch transdermal 1XD budesonide 0.5 mg/2 mL Suspension For Nebulization 0.5 mg inhalation 2XD folic acid 1 mg Tablet 1 mg PO DAILY azelastine 137 mcg (0.1 %) Aerosol,[place] 137 mcg INTRANASAL 2XD ipratropium bromide 42 mcg (0.06 %) [place],Non-Aerosol 2 spray intranasal 4XD budesonide-formoterol 80-4.5 mcg/actuation Hfa Aerosol Inhaler 2 inh INHALATION 2XD multivitamin Tablet 1 tab PO DAILY nystatin 100,000 unit/mL Suspension 5 ml PO QID Rx Instructions: swish and swallow polyethylene glycol 3350 [Miralax] 17 gram Powder In Packet 17 g PO DAILY PRN cetirizine 10 mg Tablet 10 mg PO DAILY PRN thiamine HCl (vitamin B1) 250 mg Tablet 250 mg PO DAILY omeprazole 40 mg Capsule,Delayed Release(Dr/Ec) 40 mg PO DAILY montelukast 10 mg Tablet 10 mg PO DAILY zinc 50 mg Tablet 50 mg PO Q OTHER DAY pyridoxine (vitamin B6) 100 mg Tablet 100 mg PO DAILY zolpidem 10 mg Tablet 10 mg PO QHS PRN ondansetron 4 mg Tablet,Disintegrating 4 mg PO Q8H PRN PRN Rx Instructions: 4 mg orally budesonide-formoterol [Symbicort] 160-4.5 mcg/actuation Hfa Aerosol Inhaler 2 puff INHALATION BID cholecalciferol (vitamin D3) [Vitamin D3] 125 mcg (5,000 unit) Tablet 125 mcg PO DAILY mecobalamin (vitamin B12) [B12 Active] 1,000 mcg Tablet,Chewable 1,000 mcg PO DAILY Discharge Instructions Activity:: bedrest, turn q2hrs Equipment/Supplies:: vent Diet:: NPO Discharge Orders Discharge Orders: Discharge Order (Routine); Ordered 03/14/23 Ordered By: Virginia Frazier DS: Summary Time Spent with Patient providing and/or coordinating discharge services: Greater than 30 minutes Status at Discharge Functional status at discharge: bed bound Overall status at discharge: patient is not back to baseline Mental Status: other (sedated) Speech and Movement: other (sedated) Mood: other (sedated) Affect: other (sedated) Exam Narrative Exam Narrative: General: Pleasant middle-aged male seen multiple times today, A&Ox2-3 on original visit, no evidence of EtOH w/d, answering questions, following commands, dried blood on lips HEENT: EOMI, MMM, malignancy evident on both soft and hard palates when not actively bleeding Heart: RRR Lungs: CTAB Abdomen: soft, nontender, nondistended Extremities: no edema BLEs Psych Mental Status: other (sedated) Speech and Movement: other (sedated) Mood: other (sedated) Affect: other (sedated) DS: Data Vitals/I&O Vitals and I&O: Vital Signs Temperature 36.3 C L 03/14/23 11:35 Temperature Source Tympanic 03/14/23 11:35 Pulse 89 03/14/23 11:35 Pulse Rhythm Regular 03/14/23 15:22 Pulse 91 H 03/13/23 20:50 Respiratory Rate 18 03/14/23 11:35 Respiratory Effort Short of Breath, Pursed Lip 03/14/23 15:22 Respiratory Depth Shallow 03/14/23 15:22 Respiratory Pattern Normal 03/14/23 15:22 Blood Pressure 156/93 H 03/14/23 11:35 Blood Pressure Mean 93 03/13/23 20:45 Blood Pressure Position Sitting 03/13/23 14:48 Pulse Oximetry 100 03/14/23 11:35 Oxygen Delivery Method Nasal Cannula 03/14/23 11:35 Oxygen Flow Rate 4 03/14/23 11:35 Pain Level 8 03/14/23 11:35 Comment Pt c/o headache at this time. In bed, watching TV 03/14/23 07:30 Intake & Output 03/13/23 03/14/23 03/14/23 23:59 11:59 23:59 Intake Total 1250 / 1250 1050 / 2350 1300 / 2350 Output Total 1500 / 1830 330 / 1830 Balance 1250 / 1250 -450 / 520 970 / 520 Weight 55.792 kg Intake: IV 1250 / 1250 1050 / 2350 1300 / 2350 Output: Urine 1500 / 1830 330 / 1830 Other: Urine Color Yellow Urine Appearance Clear Clear Clear Urine Odor Normal Voiding Methods Urinal Data Completed and Pending Completed studies during hospitalization [Text1]: CTA chest 03/13/23: 1. No evidence of acute pulmonary emboli.? 2. 3.5 x 2.2 cm right upper lobe mass suspicious for malignancy. 3. Prominent area of left lower lobe volume loss.? Also suspicious for neoplasm with nonvisualized bronchus. Comparison to prior outside studies would be helpful CT abdomen/pelvis ;Nonspecific gaseous distension of small and large bowel.? No findings to suggest obstruction.? No bowel wall thickening. CT head w/o contrast: Large invasive mass partially included in the field of view extending from the left maxillary sinus posterior to the spine. No visible brain metastases. Echo: Normal left ventricular wall thickness and chamber size.? Ejection fraction is 55%.? Wall motion is normal Right ventricular size and systolic systolic function appear normal Both atria are normal in size There are no structural valvular abnormalities Mild mitral regurgitation Right ventricular systolic pressure could not be estimated Labs on day of discharge: Labs from last 24 hours 03/14/23 03/14/23 03/14/23 16:51 16:51 16:51 WBC RBC Hgb Hct MCV MCH MCHC RDW Plt Count MPV Immature Gran % Neutrophils % Lymphocytes % Monocytes % Eosinophils % Basophils % Absolute Neutrophils Absolute Lymphocytes Absolute Monocytes Absolute Eosinophils Absolute Basophils PT 9.8 INR 1.0 VBG pH VBG pCO2 VBG pO2 VBG HCO3 VBG Total CO2 VBG O2 Saturation VBG Base Excess VBG Lactate Sodium Pending Potassium Pending Chloride Pending Carbon Dioxide Pending Anion Gap Pending BUN Pending Creatinine Pending Est GFR (CKD-EPI 2020) Pending Glucose Pending Calcium Pending Phosphorus Magnesium Total Bilirubin Pending AST Pending ALT Pending Alkaline Phosphatase Pending Troponin I NT-Pro-B Natriuret Pep Total Protein Pending Albumin Pending Procalcitonin TSH COVID-19 Source SARS-CoV-2 (PCR) Influenza Type A (PCR) Influenza Type B (PCR) RSV (PCR) Add-On Test Request Patient ABO/Rh Pending 03/14/23 03/14/23 03/14/23 16:51 06:15 06:15 WBC Pending RBC Pending Hgb Pending Hct Pending MCV Pending MCH Pending MCHC Pending RDW Pending Plt Count Pending MPV Pending Immature Gran % Pending Neutrophils % Pending Lymphocytes % Pending Monocytes % Pending Eosinophils % Pending Basophils % Pending Absolute Neutrophils Pending Absolute Lymphocytes Pending Absolute Monocytes Pending Absolute Eosinophils Pending Absolute Basophils Pending PT INR VBG pH VBG pCO2 VBG pO2 VBG HCO3 VBG Total CO2 VBG O2 Saturation VBG Base Excess VBG Lactate Sodium Potassium Chloride Carbon Dioxide Anion Gap BUN Creatinine Est GFR (CKD-EPI 2020) Glucose Calcium Phosphorus Magnesium Total Bilirubin AST ALT Alkaline Phosphatase Troponin I NT-Pro-B Natriuret Pep Total Protein Albumin Procalcitonin 0.5 TSH COVID-19 Source SARS-CoV-2 (PCR) Influenza Type A (PCR) Influenza Type B (PCR) RSV (PCR) Add-On Test Request DONE Patient ABO/Rh 03/14/23 03/14/23 03/14/23 06:15 06:15 06:15 WBC 25.18 H* RBC 3.06 L Hgb 9.5 L Hct 28.3 L MCV 93 D MCH 31.0 MCHC 33.6 RDW 15.7 H Plt Count 412 H MPV 9.6 Immature Gran % Neutrophils % Lymphocytes % Monocytes % Eosinophils % Basophils % Absolute Neutrophils Absolute Lymphocytes Absolute Monocytes Absolute Eosinophils Absolute Basophils PT INR VBG pH VBG pCO2 VBG pO2 VBG HCO3 VBG Total CO2 VBG O2 Saturation VBG Base Excess VBG Lactate Sodium 128 L Potassium 3.5 Chloride 94 L Carbon Dioxide 28.0 Anion Gap 6.0 BUN 7 Creatinine 0.8 Est GFR (CKD-EPI 2020) 101.32 Glucose 97 Calcium 9.4 Phosphorus 3.1 Magnesium 1.4 L Total Bilirubin 0.3 AST 19 ALT 16 Alkaline Phosphatase 107 Troponin I NT-Pro-B Natriuret Pep 843 H Total Protein 6.7 Albumin 2.6 L Procalcitonin TSH COVID-19 Source SARS-CoV-2 (PCR) Influenza Type A (PCR) Influenza Type B (PCR) RSV (PCR) Add-On Test Request Patient ABO/Rh 03/13/23 03/13/23 03/13/23 20:05 17:40 17:40 WBC RBC Hgb Hct MCV MCH MCHC RDW Plt Count MPV Immature Gran % Neutrophils % Lymphocytes % Monocytes % Eosinophils % Basophils % Absolute Neutrophils Absolute Lymphocytes Absolute Monocytes Absolute Eosinophils Absolute Basophils PT INR VBG pH 7.33 VBG pCO2 60 H VBG pO2 35 VBG HCO3 32 H VBG Total CO2 31 H VBG O2 Saturation 56 VBG Base Excess 6 H VBG Lactate Sodium Potassium Chloride Carbon Dioxide Anion Gap BUN Creatinine Est GFR (CKD-EPI 2020) Glucose Calcium Phosphorus Magnesium Total Bilirubin AST ALT Alkaline Phosphatase Troponin I NT-Pro-B Natriuret Pep Total Protein Albumin Procalcitonin TSH 1.56 COVID-19 Source Nasopharynx SARS-CoV-2 (PCR) Negative Influenza Type A (PCR) Negative Influenza Type B (PCR) Negative RSV (PCR) Negative Add-On Test Request Patient ABO/Rh 03/13/23 03/13/23 17:40 08:25 WBC RBC Hgb Hct MCV MCH MCHC RDW Plt Count MPV Immature Gran % Neutrophils % Lymphocytes % Monocytes % Eosinophils % Basophils % Absolute Neutrophils Absolute Lymphocytes Absolute Monocytes Absolute Eosinophils Absolute Basophils PT INR VBG pH VBG pCO2 VBG pO2 VBG HCO3 VBG Total CO2 VBG O2 Saturation VBG Base Excess VBG Lactate 1.3 Sodium Potassium Chloride Carbon Dioxide Anion Gap BUN Creatinine Est GFR (CKD-EPI 2020) Glucose Calcium Phosphorus Magnesium Total Bilirubin AST ALT Alkaline Phosphatase Troponin I < 50 NT-Pro-B Natriuret Pep Total Protein Albumin Procalcitonin TSH COVID-19 Source SARS-CoV-2 (PCR) Influenza Type A (PCR) Influenza Type B (PCR) RSV (PCR) Add-On Test Request Patient ABO/Rh 03/13/23 21:48 Nose MRSA Screen - Pending 03/13/23 17:30 Blood Blood Culture - Pending 03/13/23 17:10 Blood Blood Culture - Pending Preliminary micro results at discharge 03/13/23 21:48 MRSA Screen - Pending Nose 03/13/23 17:30 Blood Culture - Pending Blood 03/13/23 17:10 Blood Culture - Pending Blood PFSH All Active Problems (Updated 03/14/23 @ 19:15 by Virginia Frazier MD) Nasopharyngeal mass (Acute) Oral hemorrhage (Acute) Wernicke encephalopathy syndrome (Chronic) Leukocytosis (leucocytosis) (Chronic) Alcohol abuse, daily use (Chronic) Hypokalemia (Acute) Hyponatremia (Chronic) Acute respiratory failure with hypoxia and hypercarbia (Acute) HCAP (healthcare-associated pneumonia) (Acute) 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 (Chronic) Acute hypoxemic respiratory failure (Acute) Medical History Aspiration pneumonia Social History Smoking/Tobacco Use Status: Former Tobacco Use Quit Date: 03/13/18 Tobacco: How many years used: 40 Smoking risk assessment performed?: Yes Time Spent with Patient Time Spent with Patient: 45-69 minutes Time was spent: preparing to see the patient(eg.review tests), obtaining and/or reviewing separately otained hiistory, ordering medications,tests, procedures, referring, communicating with other health critical care technician, indepentently interpreting results, counseling the patient and care coordination
[2023-03-14 17:32] LABS: ALT 18 U/L (16-63); AST 15 U/L (15-37); Albumin 2.8 g/dL (3.4-5.0); Alkaline Phosphatase 119 U/L (46-116); Anion Gap 4.6 mmol/L (3-11); BUN 7 mg/dL (7-18); Bilirubin, Total 0.3 mg/dL (0.2-1.0); CO2 31.4 mmol/L (21.0-32.0); CREATININE 0.8 mg/dL (0.70-1.30); Calcium 9.2 mg/dL (8.5-10.1); Chloride 91 mmol/L (98-107); Estimated GFR 101.32 (mL/min/1.73m2); Glucose 128 mg/dL (74-106); Potassium 3.6 mmol/L (3.5-5.1); Sodium 127 mmol/L (136-145); Total Protein 7.2 g/dL (6.4-8.2)
[2023-03-14 17:43] LABS: Absolute Basophil Count 0.27 10^3/uL (0.0-0.2); Absolute Eosinophil Count 0.27 10^3/uL (0.0-0.7); Absolute Lymphocyte Count 1.09 10^3/uL (1.2-3.4); Absolute Monocyte Count 1.09 10^3/uL (0.1-0.8); Absolute Neutrophil Count 24.47 10^3/uL (1.2-6.7); Bands % 6; Diff Comment Manual Differential; Polychromasia Present
--- NOTE | 2023-03-14 17:48 | W.ANESPRE ---
General Info Date of Service Date Performed: 03/14/23 Height: 6 ft Weight: 55.792 kg Body Mass Index (BMI): 16.7 Meds Allergies and Home Medications Allergies Allergy/AdvReac Type Severity Reaction Status Date / Time codeine Allergy Unverified 03/13/23 21:20 varenicline [From Chantix] Allergy Unverified 03/13/23 21:19 Home Medication Medication Instructions Recorded albuterol sulfate 90 mcg/actuation 90 mcg inhalation Q4H 03/13/23 aerosol inhaler (Ventolin HFA) ascorbic acid (vitamin C) 500 mg 500 mg PO 1XD 03/13/23 tablet aspirin 81 mg tablet,delayed 81 mg PO 1XD 03/13/23 release azelastine 137 mcg (0.1 %) nasal 137 mcg intranasal 2XD 03/13/23 spray aerosol baclofen 20 mg tablet 20 mg PO BID 03/13/23 budesonide 0.5 mg/2 mL suspension 0.5 mg inhalation 2XD 03/13/23 for nebulization budesonide-formoterol HFA 80 2 inh inhalation 2XD 03/13/23 mcg-4.5 mcg/actuation aerosol inhaler cyanocobalamin (vitamin B-12) 1,000 mcg PO DAILY 03/13/23 1,000 mcg tablet folic acid 1 mg tablet 1 mg PO DAILY 03/13/23 ipratropium 0.5 mg-albuterol 3 mg 3 ml inhalation Q4H PRN 03/13/23 (2.5 mg base)/3 mL nebulization soln ipratropium bromide 42 mcg (0.06 2 spray intranasal 4XD 03/13/23 %) nasal spray levothyroxine 100 mcg tablet 100 mcg PO 1XD 03/13/23 lidocaine 5 % topical patch 1 patch transdermal 1XD 03/13/23 (Lidoderm) budesonide-formoterol HFA 160 2 puff inhalation BID 03/14/23 mcg-4.5 mcg/actuation aerosol inhaler (Symbicort) cetirizine 10 mg tablet 10 mg PO DAILY PRN 03/14/23 cholecalciferol (vitamin D3) 125 125 mcg PO DAILY 03/14/23 mcg (5,000 unit) tablet (Vitamin D3) mecobalamin (vitamin B12) 1,000 1,000 mcg PO DAILY 03/14/23 mcg chewable tablet (B12 Active) montelukast 10 mg tablet 10 mg PO DAILY 03/14/23 multivitamin 1 tab PO DAILY 03/14/23 nystatin 100,000 unit/mL oral 5 ml PO QID 03/14/23 suspension omeprazole 40 mg capsule,delayed 40 mg PO DAILY 03/14/23 release ondansetron 4 mg disintegrating 4 mg PO Q8H PRN PRN 03/14/23 tablet polyethylene glycol 3350 17 gram 17 g PO DAILY PRN 03/14/23 oral powder packet (Miralax) pyridoxine (vitamin B6) 100 mg 100 mg PO DAILY 03/14/23 tablet thiamine HCl (vitamin B1) 250 mg 250 mg PO DAILY 03/14/23 tablet zinc 50 mg tablet 50 mg PO Q OTHER DAY 03/14/23 zolpidem 10 mg tablet 10 mg PO QHS PRN 03/14/23 Current Visit Medications: Current Medications Generic Name Dose Route Start Last Admin Trade Name Freq PRN Reason Stop Dose Admin Acetaminophen 650 mg 03/14/23 16:25 Acetaminophen 325 Mg Tab PO QID FALGUNI Al Hydrox/Mg Hydrox/Simethicone 30 ml 03/13/23 19:36 Mylanta Suspension 30 Ml Cup PO Q2H PRN PRN Albuterol Sulfate 2 puff 03/14/23 00:00 03/14/23 16:41 Albuterol Hfa 8 Gm 60 Puff Inh IH Not Given Q4H FALGUNI Albuterol/Ipratropium 3 ml 03/14/23 07:15 Albuterol/Ipratropium 3 Ml Upd Vial IH Q4H PRN PRN Ascorbic Acid 500 mg 03/14/23 08:30 03/14/23 08:59 Ascorbic Acid 500 Mg Tab PO 500 mg DAILY FALGUNI Administration Aspirin 81 mg 03/14/23 08:30 03/14/23 08:57 Aspirin E.C. 81 Mg Tabec PO 81 mg DAILY FALGUNI Administration Baclofen 20 mg 03/14/23 08:30 03/14/23 08:57 Baclofen 10 Mg Tab PO 20 mg BID FALGUNI Administration Budesonide/Formoterol Fumarate 2 puff 03/14/23 08:30 03/14/23 08:35 Budesonide/Formoterol 80/4.5 6.9 Gm 60 Puff Inh IH 2 puffs BID FALGUNI Administration Budesonide/Formoterol Fumarate 2 puff 03/14/23 20:00 Budesonide/Formoterol 160/4.5 6 Gm 60 Puff Inh IH BID FALGUNI Cyanocobalamin 1,000 mcg 03/14/23 08:30 03/14/23 08:58 Cyanocobalamin 500 Mcg Tab PO 1,000 mcg DAILY FALGUNI Administration Device 1 each 03/13/23 23:00 Inhaler, Assist Device MC DIRECTED [facility] Device 1 each 03/14/23 17:00 Inhaler, Assist Device MC DIRECTED [facility] Dimethicone/Zinc Oxide 0 gm 03/13/23 19:31 Wes Protect Cream 142 Gm Tube TP PRN PRN Docusate Sodium 100 mg 03/14/23 20:00 Docusate Sodium 100 Mg Cap PO BID [facility] Folic Acid 1 mg 03/14/23 08:30 03/14/23 08:58 Folic Acid 1 Mg Tab PO 1 mg DAILY FALGUNI Administration Potassium Chloride/Sodium Chloride 1,000 mls @ 125 mls/hr 03/13/23 19:45 03/14/23 17:07 Kcl 20meq/Ns IV Infused INFUSION [facility] Infusion Azithromycin 500 mg/ Sodium 250 mls @ 250 mls/hr 03/14/23 18:00 Chloride IVPB Q24H FALGUNI Cefepime HCl 1 gm/ Sodium 50 mls @ 100 mls/hr 03/14/23 04:00 03/14/23 15:47 Chloride IVPB Infused Q8H [facility] Infusion Sodium Chloride 500 mls @ 0 mls/hr 03/13/23 23:26 Saline 500ml Bag IV PRN PRN As Directed Vancomycin/PEG/NADA/Lysine/Water 750 mg in 150 mls @ 150 mls/hr 03/14/23 10:00 03/14/23 14:00 Vancocin Injection IV Infused Q12H [facility] Infusion Sodium Chloride 1,000 mls @ 100 mls/hr 03/14/23 16:58 Saline 1000ml Bag IV INFUSION [facility] IV Miscellaneous Supplies 1 each 03/13/23 23:30 Iv Access IV DIRECTED [facility] Iohexol 100 ml 03/13/23 16:45 03/13/23 18:12 Omnipaque 350 Mg/Ml 100 Ml Btl IJ 04/12/23 23:59 100 ml DIRECTED [facility] Administration Ipratropium Golden 0 ml 03/14/23 08:30 Ipratropium 0.06% 15 Ml Btl NS QID FALGUNI Levothyroxine Sodium 100 mcg 03/14/23 06:00 03/14/23 05:09 Levothyroxine 100 Mcg Tab PO 100 mcg 0600 FALGUNI Administration Lidocaine 1 patch 03/14/23 08:30 03/14/23 09:00 Lidocaine 5% Patch TD 1 patch DAILY FALGUNI Administration Lorazepam 0 mg 03/13/23 23:26 Lorazepam 1 Mg Tab PO/SL DIRECTED PRN Magnesium Hydroxide 30 ml 03/13/23 19:36 Milk Of Magnesia 30 Ml Cup PO DAILY PRN PRN Miscellaneous 1 each 03/14/23 20:30 Patch Removal TP 2030 FALGUNI Morphine Sulfate 2 mg 03/14/23 09:09 03/14/23 10:55 Morphine 2 Mg/Ml Syr IVP 2 mg Q2H PRN PRN Administration Ondansetron HCl 4 mg 03/14/23 16:58 03/14/23 17:17 Ondansetron 4 Mg/2 Ml Vial IVP 4 mg Q6H PRN PRN Administration Polyethylene Glycol 17 gm 03/14/23 20:00 Polyethylene Glycol 3350 17 Gm Packet PO BID FALGUNI Sodium Chloride 0 ml 03/13/23 16:19 03/14/23 10:57 Normal Saline Flush 10 Ml Syr IVP 10 ml PRN PRN Administration Sodium Chloride 50 ml 03/13/23 16:45 03/13/23 18:16 Normal Saline - Diluent 50 Ml Vial IJ 50 ml .FOR DI USE FALGUNI Administration Sodium Chloride 0 ml 03/13/23 23:26 Normal Saline Flush 10 Ml Syr IVP PRN PRN Thiamine HCl 100 mg 03/14/23 08:30 03/14/23 08:59 Thiamine 100 Mg Tab PO 03/20/23 08:31 100 mg QAM FALGUNI Administration PFSH Active Problems Active Problems: Problem Status Onset Code Oral hemorrhage K13.79 Wernicke encephalopathy syndrome E51.2 Leukocytosis (leucocytosis) D72.829 Alcohol abuse, daily use F10.10 Hypokalemia E87.6 Hyponatremia E87.1 Acute respiratory failure with hypoxia and hypercarbia J96.01, J96.02 HCAP (healthcare-associated pneumonia) J18.9 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36-5.78) L 03/14/23 16:51 Hemoglobin 9.9 g/dL (13.5-17.5) L 03/14/23 16:51 Hematocrit 28.6 % (40.0-50.0) L 03/14/23 16:51 Platelet Count 499 10^3/uL (130-400) H 03/14/23 16:51 Venous Blood Lactate 1.3 mmol/L (0.6-1.4) 03/13/23 17:40 Complete Metabolic Panel: Sodium 127 mmol/L (136-145) L 03/14/23 16:51 Potassium 3.6 mmol/L (3.5-5.1) 03/14/23 16:51 Chloride 91 mmol/L (98-107) L 03/14/23 16:51 Carbon Dioxide 31.4 mmol/L (21.0-32.0) 03/14/23 16:51 BUN 7 mg/dL (7-18) 03/14/23 16:51 Creatinine 0.8 mg/dL (0.70-1.30) 03/14/23 16:51 Est GFR (CKD-EPI 2020) 101.32 (mL/min/1.73m2) 03/14/23 16:51 Magnesium 1.4 mg/dL (1.8-2.4) L 03/14/23 06:15 Calcium 9.2 mg/dL (8.5-10.1) 03/14/23 16:51 Albumin 2.8 g/dL (3.4-5.0) L 03/14/23 16:51 Glucose 128 mg/dL (74-106) H 03/14/23 16:51 Liver Function Panel: Alanine Aminotransferase (ALT/SGPT) 18 U/L (16-63) 03/14/23 16:51 Aspartate Amino Transf (AST/SGOT) 15 U/L (15-37) 03/14/23 16:51 Coagulation Panel: INR International Normalized Ratio 1.0 (0.9-1.1) 03/14/23 16:51 Prothrombin Time 9.8 sec (9.3-11.0) 03/14/23 16:51 Activated Partial Thromboplast Time 30.2 sec (21.5-31.9) 03/13/23 15:00 Cardiac Panel: Troponin I < 50 ng/L (<or=60) 03/13/23 NT-Pro-B Natriuret Pep 843 pg/mL (<300) H 03/14/23 Arterial Blood Gas: No Data to Display Venous Blood Gas: Venous Blood pH 7.33 (7.31-7.41) 03/13/23 17:40 Venous Blood Partial Pressure O2 35 mmHg 03/13/23 17:40 Venous Blood Partial Pressure CO2 60 mmHg (41-51) H 03/13/23 17:40 Venous Blood Oxygen Saturation 56 % 03/13/23 17:40 Venous Blood HCO3 32 mmol/L (23-28) H 03/13/23 17:40 Venous Blood Base Excess 6 mmol/L (-2-3) H 03/13/23 17:40 Venous Blood Total Carbon Dioxide 31 mmol/L (24-29) H 03/13/23 17:40 Pancreas Panel: No Data to Display Thyroid Panel: Thyroid Stimulating Hormone (TSH) 1.56 uIU/mL (0.36-3.74) 03/13/23 17:40 Infectious Disease: Coronavirus (COVID-19)(PCR) Negative (Negative) 03/13/23 20:05 Coronavirus 2019 Source Nasopharynx 03/13/23 20:05 Influenza Virus Type A (PCR) Negative (Negative) 03/13/23 20:05 Influenza Virus Type B (PCR) Negative (Negative) 03/13/23 20:05 Respiratory Syncytial Virus (PCR) Negative (Negative) 03/13/23 20:05 Blood Cultures: No Data to Display Toxicology Panel: No Data to Display Anesthesia Assessment and Plan Anesthesia History Personal History: No History of Anesthesia Complications Family History: No Family History of Anesthesia Complications Exercise Tolerance Exercise Tolerance: Metabolic Equivalents<4 Pertinent Negatives Pertinent Negatives: No Major Cardiovascular Symptoms or Complaints Cardiac & Pulmonary Exam Cardiac Exam: Normal S1/S2 Heart Sounds Pulmonary Exam: Rhonchi Present Implantable Cardiac Device Does patient have a Pacemaker or an ICD?: No Airway Exam Known Difficult Airway: No Mallampati Class: 2 Mouth Opening: Normal (> 3cm) Thyromental Distance: Greater than 3 cm Facial Hair: Full [place] Neck Range of Motion: Full ROM Neck Circumference: Normal Teeth Condition: Edentulous Airway Comments: Eroding mass of sinuses/upper palate, bleeding earlier, bleeding stopped, dose of TXA infused 1650. Patient aware that airway manipulation could restart the bleeding necessitating need for an emergency circoidotomy or tracheotomy. ASA Classification ASA Score: ASA 4 Emergency Case?: Yes NPO Status NPO Status: Full Stomach Anesthesia Plan Resuscitation Status: Full Code Anesthesia Technique: General Anesthesia Airway Planned: Endotracheal Tube Monitors Used: Standard Monitors
[2023-03-14] MEDS: Lactated Ringers 1,000 ML 30 ML IV (18:29)
--- NOTE | 2023-03-14 18:54 | W.PM.OP ---
Date of service: 03/14/23 Time of Service: 18:55 Operative Note Operative Note DATE OF PROCEDURE: 03/14/23 PRE-OP DIAGNOSIS: Mouth bleeding POST-OP DIAGNOSIS: same PROCEDURE: Oral endotracheal intubation with packing of the mouth SURGEON: Mynor Bernal [employer] TRAINEE: Dee Gary ANESTHESIA TYPE: General:No Airway Refer to Anesthesia Record ESTIMATED BLOOD LOSS: 10 PATHOLOGY: none sent COMPLICATIONS: None Patient was transported to: PACU Patient's condition: critical Indications: Zak is a 62-year-old male who is admitted to the hospital with acute hypoxemic and hypercarbic respiratory failure. 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 He was treated with tranexamic acid, and had some improvement in the bleeding. I was consulted in an emergent fashion to help assist and establish an airway. Findings: Uncomplicated oral endotracheal intubation Procedure Description: Briefly, I was called to the bedside in emergency fashion because of bleeding from the patient's mouth. Upon my arrival, the bleeding was controlled. He was able to expectorate a majority of his secretions. He was maintaining a pulse oximetry greater than 90% with nasal cannula. I explained that as soon as an operating room is ready, we moved downstairs for controlled oral endotracheal intubation, possible tracheostomy, or possible cricothyroidotomy. I explained the urgent nature of the situation to Mr. Marc, and he was able to provide verbal and written informed consent. As soon as the OR was ready, we moved downstairs. He was assisted onto the operating room table. He was kept in a semirecumbent position until we are ready to proceed with intubation. Surgical instruments were prepped and readied, and then using rapid sequence intubation, the anesthesia service was able to pass a 7 oh endotracheal tube under direct vision through the cords into the trachea. There was return of end-tidal CO2, normal breath rise and lung sounds. His pulse oximetry was 100%. There was no active bleeding from the mouth at this time, but the oropharynx was gently packed with 1 Z fold combat gauze dressing to provide topical hemostasis for his emergency transfer down to [facility].
--- NOTE | 2023-03-14 19:27 | W.ANESPOSTOP ---
Postoperative Evaluation Date, Time and Location Date Performed: 03/14/23 Time Performed: 19:16 Patient Location: Other ([facility] transport her to transfer to [facility]) Vital Signs Most Recent Imported Vital Signs: Most Recent Vital Signs Temp Pulse Resp BP Pulse Ox 36.9 C 114 H 18 149/85 H 99 03/14/23 16:35 03/14/23 17:20 03/14/23 17:20 03/14/23 17:20 03/14/23 17:20 Pain Score Most Recent Pain Score: Most Recent Pain Score Pain Level 8 03/14/23 11:35 Assessment Mental Status: Unable to Participate (Document Reason) (intubated) Airway and Respiratory Function: Other (intubated for transport) Cardiovascular Function: Hemodynamically Stable Hydration Status: Adequately Hydrated Nausea & Vomiting: No Nausea or Vomiting Pain: Other (unable to assess) Peripheral Nerve Block: Patient did not receive a nerve block
== END 2023-03-14 19:16 | disposition short-term general hospital (02) | DRG 193 ==
LOC: ER 16:19 → MS 21:04
PROVIDERS: Emergency Medicine; Internal Medicine; Nurse Practitioner Acute Care; Surgery; Admitting Provider Family Medicine; Emergency Provider Physician Assistant; Visit Provider Family Medicine
PROC: [UNRECOGNIZED PROCEDURE] (CPT 42971; principal; 2023-03-14 18:20)
DX: J18.9 Pneumonia, unspecified organism (principal); J96.01 Acute respiratory failure with hypoxia; J96.02 Acute respiratory failure with hypercapnia; C7A.8 Other malignant neuroendocrine tumors; C7B.8 Other secondary neuroendocrine tumors; E87.1 Hypo-osmolality and hyponatremia; E51.2 Wernicke's encephalopathy; Z68.1 Body mass index [BMI] 19.9 or less, adult; E87.6 Hypokalemia; D72.829 Elevated white blood cell count, unspecified; F10.10 Alcohol abuse, uncomplicated; Y95 Nosocomial condition; Z66 Do not resuscitate; Z85.89 Personal history of malignant neoplasm of other organs and systems; R63.4 Abnormal weight loss; R22.0 Localized swelling, mass and lump, head
CPT/HCPCS: 31500; 42971; 36415; 71275; 80053; 82805; 84145; 85027; 86850; 86900; 86901; 87040; 87081; 87637; 93005; 94640; 96365; 96366; 96367; 96375; 99285; J1650; 70450; 74177; 83605; 83735; 83880; 84100; 84443; 84484; 85025; 85610; 85730; 93010; 93306; 94664; 94760; 99223; 99291; J0131; J0456; J0696; J2270; J2405; J2704; J3475; J3490; J7620

== ENCOUNTER 2023-06-23 16:19 | Outpatient (CLI) | payer BC, MEDICARE, SELFPAY ==
[2023-06-23 12:49] LABS: Abs Immature Grans 0.04 10^3/uL (0.0-0.06); Absolute Basophil Count 0.06 10^3/uL (0.0-0.2); Absolute Eosinophil Count 0.05 10^3/uL (0.0-0.7); Absolute Lymphocyte Count 0.77 10^3/uL (1.2-3.4); Absolute Monocyte Count 1.01 10^3/uL (0.1-0.8); Absolute Neutrophil Count 7.56 10^3/uL (1.2-6.7); Basophils % 0.6; Eosinophils % 0.5; HCT 30.9 % (40.0-50.0); HGB 10.4 g/dL (13.5-17.5); Immature Grans % 0.4; Lymphocytes % 8.1; MCH 29.5 pg (27.0-33.0); MCHC 33.7 % (32.0-36.0); MCV 88 fL (80-95); MPV 8.8 fL (8.0-11.0); Monocytes % 10.6; Neutrophils % 79.8; Platelet Count 468 10^3/uL (130-400); RBC 3.53 10^6/uL (4.36-5.78); RDW 16.2 % (11.8-14.1); RDW-SD 51.6 fL; WBC 9.49 10^3/uL (4.4-10.8)
[2023-06-23 13:10] LABS: ALT 14 U/L (16-63); AST 20 U/L (15-37); Albumin 2.8 g/dL (3.4-5.0); Alkaline Phosphatase 116 U/L (46-116); Anion Gap 8.7 mmol/L (3-11); BUN 5 mg/dL (7-18); Bilirubin, Total 0.2 mg/dL (0.2-1.0); CO2 29.3 mmol/L (21.0-32.0); CREATININE 0.8 mg/dL (0.70-1.30); Calcium 8.9 mg/dL (8.5-10.1); Chloride 93 mmol/L (98-107); Estimated GFR 100.69 (mL/min/1.73m2); FREE T4 1.23 ng/dL (0.76-1.46); Glucose 92 mg/dL (74-106); Potassium 3.7 mmol/L (3.5-5.1); Sodium 131 mmol/L (136-145); TSH 1.17 uIU/mL (0.36-3.74); Total Protein 7.3 g/dL (6.4-8.2)
== END 2023-06-23 16:20 | disposition home or self-care (01) ==
LOC: LBO 16:20
PROVIDERS: Visit Provider Internal Medicine Hematology & Oncology
DX: C30.0 Malignant neoplasm of nasal cavity (principal); C31.9 Malignant neoplasm of accessory sinus, unspecified; R53.83 Other fatigue; R63.4 Abnormal weight loss
CPT/HCPCS: 36415; 80053; 84439; 84443; 85025